=== PATIENT | female | born 1960 | race Caucasian/White ===

== ENCOUNTER → 2017-06-11 10:08 | Outpatient (CLI) | payer MEDICARE, MEDICAID, SELFPAY ==
[2017-06-11 11:49] LABS: Amphetamine Urine VISTA NEGATIVE (<1000 ng/mL); Barbiturate Urine VISTA NEGATIVE (< 200 ng/mL); Benzodiazepine Urine VISTA NEGATIVE (< 200 ng/mL); Cocaine Urine VISTA NEGATIVE (< 300 ng/mL); Ecstacy Urine VISTA NEGATIVE (< 500 ng/mL); Methadone Urine VISTA NEGATIVE (< 300 ng/mL); PCP Urine VISTA NEGATIVE (< 25 ng/mL); THC Urine VISTA NEGATIVE (< 50 ng/mL); Vista UDS pH Range 6
== END ==
PROVIDERS: Visit Provider Anesthesiology Pain Medicine
DX: F11.20 Opioid dependence, uncomplicated (principal)
CPT/HCPCS: 80307

== ENCOUNTER 2021-04-04 13:59 | Outpatient (CLI) | payer MEDICARE, MEDICAID, SELFPAY ==
--- NOTE | 2021-04-04 14:49 | NEURO ---
NCS and/or EMG Patient Report Ordering Doctor: Shravan Patterson DATE OF SERVICE: 04/04/21 Indication: Intermittent numbness traveling down the left arm for the last 6 months. Evaluate for cervical radiculopathy. Findings: Nerve conduction studies were performed in the left upper extremity. The left median motor study recording the abductor pollicis brevis showed a normal amplitude, normal distal latency and normal conduction velocity. The left ulnar motor study recording the abductor digiti minimi showed a normal amplitude, normal distal latency and normal conduction velocity. No conduction block or focal slowing was present across the elbow. The left median sensory response recording digit two showed a normal amplitude, latency and conduction velocity. The left ulnar sensory response recording digit five showed a normal amplitude, latency and conduction velocity. The left radial sensory response recording over the extensor snuff box showed a normal amplitude, latency and conduction velocity. As the sensory symptoms of a C6-7 radiculopathy are similar to those of median entrapment at the wrist, additional internal comparison studies were done to help exclude a possible median neuropathy at the wrist. Left median-ulnar lumbrical / interosseous motor latencies showed no significant difference. Needle EMG of the left upper extremity and cervical paraspinal muscles was performed. No denervation was seen in any muscle. All motor unit morphology, activation and recruitment patterns were normal. Impression: This is a normal study. There is no electrophysiologic evidence of cervical radiculopathy in the left upper extremity. In addition, there was no electrophysiologic evidence of median or ulnar entrapment neuropathy in the left upper extremity. Please note: the electrodiagnosis of radiculopathy is made on the basis of excluding peripheral nerve lesions on nerve conduction studies and the needle EMG demonstrating denervation and/or reinnervation in the distribution of one or more nerve roots (i.e., acute and/or chronic axonal loss). Thus, electrodiagnostic studies are insensitive in detecting radiculopathy in the absence of axonal loss (e.g., in the setting of compression resulting in intermittent ischemia or mechanical deformation; or demyelination without axonal loss). Thus, clinical correlation is required in the interpretation of this negative electrodiagnostic study for radiculopathy. Mikey Cote D.O. Multi Select Codes Neurology Neurology Interp Codes: 44960-70 Musc test done w/n test comp (interp) and 23259-12 Nrv cndj test 7-8 studies (interp)
== END 2021-04-04 23:59 | disposition home or self-care (01) ==
LOC: PSN 14:03
PROVIDERS: Referring Provider Orthopaedic Surgery; Visit Provider Orthopaedic Surgery
DX: R20.2 Paresthesia of skin (principal)
CPT/HCPCS: 95886; 95910

== ENCOUNTER → 2022-01-17 | Outpatient (CLI) | payer MEDICARE, MEDICAID, SELFPAY ==
--- NOTE | 2022-01-17 09:47 | MRI_ITS ---
STUDY: MRI RIGHT HAND REASON FOR EXAM: Female, 61 years old. PAIN -- RIGHT 5TH FINGER TECHNIQUE: Standardized fat and water weighted pulse sequences were obtained in all 3 orthogonal planes. COMPARISON: X-ray of the fifth digit dated December 26, 2021. FINDINGS: FIRST DIGIT: Normal visualized first metacarpus. The MCP joint is mildly narrowed. Normal interphalangeal joint. Normal proximal, and distal phalanges. Normal flexor and extensor tendons. There is no soft tissue abnormality. SECOND DIGIT: Normal visualized second metacarpus. The MCP joint is mildly narrowed. Normal proximal and distal interphalangeal joints. Normal proximal, middle and distal phalanges. Normal flexor and extensor tendons. There is no soft tissue abnormality. THIRD DIGIT: Normal visualized third metacarpus. The MCP joint is mildly narrowed. Normal proximal and distal interphalangeal joints. Normal proximal, middle and distal phalanges. Normal flexor and extensor tendons. There is no soft tissue abnormality. FOURTH DIGIT: Normal visualized fourth metacarpus. The MCP joint is mildly narrowed. Normal proximal and distal interphalangeal joints. Normal proximal, middle and distal phalanges. Normal flexor and extensor tendons. There is no soft tissue abnormality. FIFTH DIGIT: A benign 0.72 x 0.43 cm tingling cyst is present in the subcutaneous tissues in the volar aspect of the neck of the fifth proximal phalanx with mild subcutaneous edema surrounding the cyst. Normal visualized fifth metacarpus. The MCP joint is mildly narrowed. Normal proximal and distal interphalangeal joints. Normal proximal, middle and distal phalanges. Normal flexor and extensor tendons. Normal visualized thenar and hypothenar muscles. Normal lumbricalis and interosseous muscles. There are no solid, cystic or lipomatous masses. MRI/Upper Ext/No Jt/ wo IMPRESSION: 1. A benign 0.72 x 0.43 cm tingling cyst is present in the subcutaneous tissues in the volar aspect of the neck of the fifth proximal phalanx with mild subcutaneous edema surrounding the cyst. Electronically Signed: Tello Nur MD at 11:49 EST ,
== END | disposition home or self-care (01) ==
LOC: MRI 09:47
PROVIDERS: PCP Nurse Practitioner Family; Referring Provider Orthopaedic Surgery Sports Medicine; Visit Provider Orthopaedic Surgery Sports Medicine
DX: M67.40 Ganglion, unspecified site (principal)
CPT/HCPCS: 73218

== ENCOUNTER 2022-03-29 06:00 | Day surgery (SDC) | payer MEDICARE, MEDICAID, SELFPAY ==
[2022-03-29 06:29] VITALS: BP 144/81; PULSE 89; RESP 18; TEMP 36.6; O2SAT 98; BMI 20.7
[2022-03-29] MEDS: Lactated Ringers 1,000 ML 15 ML IV (06:45)
--- NOTE | 2022-03-29 07:06 | PCM.HP.STD ---
HPI - General HPI Narrative REGIS HERNANDEZ, is a 61 F who presents for left 5th digit volar ganglion cyst excision. no changes to h and p. marked. discussed after care. no concerns, ok to proceed. MR#: [id number] Acct: [id number] Name:REGIS GONZALES Rep #: [id number] : 1960 ? ? Provider: Dr. Jeffrey Mallory MD Age/Sex:? 61/F ? ? Location: [facility] [place] Status: Signed Intake Intake Visit Reasons:?Right hand Chief Complaint: right hand Allergies No Known Allergies Allergy (Verified 01/24/22 08:54) Medications aspirin 81 mg chewable tablet 81 mg PO DAILY@0800 02/18/14 [History Confirmed 01/24/22] buspirone 30 mg tablet 30 mg PO BID 12/26/21 [History Confirmed 01/24/22] hydroxyzine HCl 25 mg tablet 25 mg PO QHS 12/26/21 [History Confirmed 01/24/22] pantoprazole 20 mg tablet,delayed release 20 mg PO DAILY 12/26/21 [History Confirmed 01/24/22] trazodone 100 mg tablet 100 mg PO DAILY 12/26/21 [History Confirmed 01/24/22] venlafaxine 75 mg tablet 75 mg PO DAILY 12/26/21 [History Confirmed 01/24/22] PFSH Medical History?(Updated 01/24/22 @ 09:08 by Jeffrey Mallory MD) Ganglion of flexor tendon sheath of right little finger Ganglion, tendon sheath History of CVA (cerebrovascular accident) Surgical History? History of arthroscopy of right shoulder History of lumbar spinal fusion Hx of cervical spine surgery Hx of cholecystectomy Hx of hysterectomy Family History? Father Hypertension Heart disease CVA (cerebral vascular accident)Mother Myocardial infarction Social History? Smoking Status:? Current some day smoker alcohol intake:? never HPI Right hand Details: Parts of this documentation were recorded by a scribe, this documentation accurately reflects the service provided and the decisions made by me, Dr. Jeffrey Mallory MD 01/24/22 0852. REGIS HERNANDEZ is a 61 year old F here today for low up on MRI for lesion of the right small finger.? Still bothering the patient especially with grasping and wants it removed. Ortho Exam General General: Yes no acute distress Neurologic: Yes alert and Yes oriented x3 Psychologic: Yes reasonable and appropriate Right Wrist/Hand Skin/Wound: Yes CDI, Yes Swelling, No Ecchymosis, Yes nail intact and Yes capillary refill normal Right Wrist: Yes ROM-Extension 0-60, ROM-Flexion 0-80, ROM-Pronation 0-80 and ROM-Supination 0-90 Motor: EPL: 5, FDP-2: 5, 1st Dorsal Interosseous: 5 and APB: 5 Sensation: Radial: I, Ulnar: I and Median: I WRIST: On the volar side of the fifth digit at the proximal phalanx mid aspect more ulnarly there appears to be a 3 mm circular cystic type lesion it is painful to palpate.? Moderately firm.? It is mobile.? The range of motion of the MCP joint is about 0 to 80 degrees PIP joint 0 to 80 degrees and DIP joint 0 to 50 degrees. it trans illuminates Left Wrist/Hand Skin/Wound: Yes Swelling and No Ecchymosis Supplemental Info [facility] Imaging Services [address] [place] [address] Upper Ext/No Jt/ wo MR#:? [id number] Acct: [id number] Name:REGIS GONZALES Rep #: [id number] :?? 1960 F 61 ? From:? ? Tello Nur MD PCP: SHIELA Ogden ? Status: REG CLI Study: Upper Ext/No Jt/ wo ? Date of Exam: 01/17/22 Exam# [id number] ? Ordering Dr:? Jeffrey Mallory MD STUDY:? MRI RIGHT HAND REASON FOR EXAM: ? Female, 61 years old.? PAIN -- RIGHT 5TH FINGER TECHNIQUE: ? Standardized fat and water weighted pulse sequences were obtained in all 3 orthogonal planes. COMPARISON: ? X-ray of the fifth digit dated December 26, 2021. FINDINGS: FIRST DIGIT:? Normal visualized first metacarpus.? The MCP joint is mildly narrowed. Normal interphalangeal joint. Normal proximal, and distal phalanges. Normal flexor and extensor tendons. There is no soft tissue abnormality. SECOND DIGIT:? Normal visualized second metacarpus. The MCP joint is mildly narrowed.? Normal proximal and distal interphalangeal joints. Normal proximal, middle and distal phalanges. Normal flexor and extensor tendons. There is no soft tissue abnormality. THIRD DIGIT:? Normal visualized third metacarpus. The MCP joint is mildly narrowed. Normal proximal and distal interphalangeal joints. Normal proximal, middle and distal phalanges. Normal flexor and extensor tendons. There is no soft tissue abnormality. FOURTH DIGIT:? Normal visualized fourth metacarpus. The MCP joint is mildly narrowed. Normal proximal and distal interphalangeal joints. Normal proximal, middle and distal phalanges. Normal flexor and extensor tendons. There is no soft tissue abnormality. FIFTH DIGIT:? A benign 0.72 x 0.43 cm tingling cyst is present in the subcutaneous tissues in the volar aspect of the neck of the fifth proximal phalanx with mild subcutaneous edema surrounding the cyst.? Normal visualized fifth metacarpus. The MCP joint is mildly narrowed. Normal proximal and distal interphalangeal joints. Normal proximal, middle and distal phalanges. Normal flexor and extensor tendons. Normal visualized thenar and hypothenar muscles.? Normal lumbricalis and interosseous muscles.? There are no solid, cystic or lipomatous masses. MRI/Upper Ext/No Jt/ wo IMPRESSION: 1.? A benign 0.72 x 0.43 cm tingling cyst is present in the subcutaneous tissues in the volar aspect of the neck of the fifth proximal phalanx with mild subcutaneous edema surrounding the cyst. ? Electronically Signed: Tello Nur MD at 11:49 EST Reading Location ID and State: [facility] / [place] , Service support? , ? Reviewed the MRI report and images agree with radiologist assessment Coding Level of Care Code Off vis,est,level 3 Diagnoses Ganglion of flexor tendon sheath of right little finger? M67.441 Assessment and Plan Assessment and Plan (1) Ganglion of flexor tendon sheath of right little finger: ?Status:?Acute ?Plan: 61-year-old female appears to have a small cystic lesion benign in appearance right little finger on the volar side.? Can treat this nonoperatively rest ice activity modifications anti-inflammatories aspiration as well as surgical excision H at the onset of pros and cons risks and benefits.? She would prefer to have this surgically removed.? We discussed the pros and cons risks and benefits of this and she wished to go ahead some extent form for that as well as possible need for blood products. Pros and cons risks and benefits were discussed with the patient including but not limited to infection, pain, stiffness, bleeding, damage to surrounding structures, neurovascular injury, recurrence ~10%? or retear, failure or wear of hardware or fixation, instability, fracture, deep vein thrombosis and pulmonary embolism, anesthetic risks, patient dissatisfaction, need for further surgery and other risks.? Patient understood and wished to proceed with surgery, and signed the informed consent documentation. [facility] Medical History (Updated 03/22/22 @ 12:02 by Sravanthi Paulino) Anxiety Arthritis Cardiology follow-up encounter Complete edentulism, class III Depression DVT (deep venous thrombosis) Easy bruising Former smoker Ganglion of flexor tendon sheath of right little finger Ganglion, tendon sheath Gastric reflux History of CVA (cerebrovascular accident) History of echocardiogram History of pain when walking History of stress test History of ulceration Injury of back Injury of head and neck Migraine headache Restless legs Shortness of breath on exertion Syncope TIA (transient ischemic attack) Wears glasses Wears hearing aid Home Medications buspirone 30 mg tablet 30 mg PO BID 12/26/21 [History Last Taken 03/29/22 04:30] pantoprazole 20 mg tablet,delayed release 20 mg PO DAILY 12/26/21 [History Last Taken Unknown] trazodone 100 mg tablet 150 mg PO QHS 12/26/21 [History Last Taken Unknown] venlafaxine 75 mg tablet 75 mg PO DAILY 12/26/21 [History Last Taken Unknown] meloxicam 15 mg tablet 15 mg PO DAILY 03/22/22 [History Last Taken Unknown] pramipexole 0.5 mg tablet 0.5 mg PO QHS 03/22/22 [History Last Taken Unknown] Allergy/AdvReac Type Severity Reaction Status Date / Time No Known Allergies Allergy Verified 03/29/22 06:28 Family History Father Hypertension Heart disease CVA (cerebral vascular accident) Mother Myocardial infarction Surgical History (Updated 03/22/22 @ 12:02 by Sravanthi Paulino) History of arthroscopy of right shoulder History of exploratory laparotomy History of lumbar spinal fusion Hx of cervical spine surgery Hx of cholecystectomy Hx of hysterectomy Social History Smoking Status: Current some day smoker tobacco type: cigarettes alcohol intake: never Vital Signs Vital Signs Vital Signs: 03/29/22 06:29 03/29/22 06:29 Temperature 97.8 F Temperature Source Temporal Pulse Rate 89 Respiratory Rate 18 Respiratory Pattern Normal Blood Pressure 144/81 H Blood Pressure Mean 102 Blood Pressure Source Monitor Blood Pressure Position Sitting Blood Pressure Location Right Arm Pulse Ox 98 Oxygen Delivery Method Room Air Weight Weight: 116 lb 13.52 oz Body Mass Index (BMI) 20.7
--- NOTE | 2022-03-29 07:30 | GANG_PTH ---
PATIENT: REGIS HERNANDEZ LOC: [facility] [place] U#:[id number] AGE/SX: 61/F ROOM: RE03/29/[address]: Dr. Jeffrey Mallory MD : 1960 BED: DIS: 03/29/2022 SPEC #: [id number] RECD: 03/29/22 09:37 STATUS: MIS RESergio #: [id number] RICHI: 03/29/22 07:[address]: Jeffrey Mallory DEPT: SURGICAL PATHOLOGY RECD BY: Suzanne Singh ENTERED: 03/29/22 10:06 SP TYPE: GANGLION OTHR DR: Karen Álvarez, CURBER-C Tissues: GANGLION CYST Procedures: Surgery Specimen Level III HEADER OPERATION: Excision cyst little finger PRE-OP DIAGNOSIS: Ganglion of flexor tendon sheath of right little finger TISSUE SUBMITTED: Right little finger cyst MICROSCOPIC DIAGNOSIS Right little finger cyst, excision: Epidermal inclusion cyst. EMETERIO:kailee 03/30/2022 MICROSCOPIC DESCRIPTION Slides are reviewed. GROSS DESCRIPTION Received in fixative is one container labeled with the patient's name and designated right little finger cyst. The specimen consists of a piece of johnston-white nodule measuring 0.7 x 0.5 x 0.4 cm. The specimen is bisected and submitted entirely in one cassette. / SJ:rg 03/29/2022 TC:5 CPT: 53555
[2022-03-29] MEDS: Cefazolin 2 GM in 0.9% Normal Saline 100 ML IV (07:45)
--- NOTE | 2022-03-29 08:06 | PCM.OPRPT ---
Problems Associated Problem List Diagnoses (1) Ganglion of flexor tendon sheath of right little finger: Report of Operation Date of Procedure: 03/29/22 Pre-Operative Diagnosis: right 5th finger volar flexor tendon ganglion cyst Post-Operative Diagnosis: same Surgery/Procedure Performed:: right 5th finger volar flexor tendon ganglion cyst excision Description of Surgical Findings:: [id number] small benign appearing cyst removed in one section Surgeon: Jeffrey Mallory Type of Anesthesia: General and Local Anesthesiologist: Jony Davis Estimated Blood Loss (mL): 5 Description of Procedure: Patient brought to the operating room theater. Placed supine on the operating room table. General anesthesia induced. Hand table to the patient's right side. 2 g IV Ancef administered prior to the start of the procedure. 18 inch tourniquet applied right upper extremity appropriately padded. Upper extremity prepped and draped in the usual sterile fashion chlorhexidine-based prep solution allowing over 3 minutes drying time prior to draping. Preoperative timeout performed to confirm the site patient and surgery. Began by inflating the tourniquet to 250 mmHg. Used 1 cc of 0.25% bupivacaine with a 25-gauge needle to perform a digital block on the volar ulnar side of the fifth digit. Use a longitudinal incision centered over the cyst site. Ensured to protect the digital nerve. Cyst was excised in 1 section. Removed easily, no damage to tendon sheath. 5mm x 5mm white-colored tissue. Sent for pathology. Case terminated. Tourniquet let down. Hemostasis achieved. Wound thoroughly irrigated. Skin closed with horizontal mattress 4-0 nylon suture. Skin cleaned with wet and dry dressing followed application of Telfa dressing and Maddie wrap loosely wrapped around the finger. Patient woken up transferred off the operating room table and taken to postanesthetic care unit in stable condition. All sponge needle instrument counts were correct no complications. Plan for the patient gentle range of motion follow-up in the office in 2 days time keep the wound clean and dry. Complications none Admit VTE Documentation VTE Present on Admission: No VTE Mechan Device Prophylaxis: SCD's Reason prophylaxis not ordered:: Treatment Not Indicated Procedures Musculoskeletal [id number]-29xxx: [id number] Remove tendon sheath lesion
--- NOTE | 2022-03-29 08:10 | DCINST_ITS ---
Discharge Instructions Diet Discharge Diet: No restrictions Activity Ice area for (Minutes): 10 Lifting Restrictions: no heavy lifting, ROM as tolerated finger. Keep extremity elevated above heart level: Operative Extremity Dressing / Incision Call your doctor if your incision/area has: Continuous Slow Oozing, Sudden Increased Bleeding, Increased Pain/ Swelling, Increased Redness, Foul Smelling Discharge and Swelling at the incision site Change Dressing in: leave in place till F/U Follow Up Care Please Follow Up With: Jeffrey Mallory MD When: 2 days Test Results: Test results from this visit will be discussed in further detail at your follow- up appointment, if applicable. Discharge Plan Admission Attending Provider: Jeffrey Mallory Primary Care Provider: Karen Álvarez NP Discharge Orders/Prescriptions Prescriptions: No Action buspirone 30 mg tablet 30 mg PO BID pantoprazole 20 mg tablet,delayed release (DR/EC) 20 mg PO DAILY venlafaxine 75 mg tablet 75 mg PO DAILY trazodone 100 mg tablet 150 mg PO QHS meloxicam [Mobic] 15 mg Tablet 15 mg PO DAILY pramipexole 0.5 mg Tablet 0.5 mg PO QHS Referrals / Follow Up: Karen Álvarez NP, [employer] [Primary Care Provider] - Disposition Disposition (needs filled in before D/C Order can be placed): Home, Self Care
[2022-03-29 08:14] VITALS: BP 144/81; BP 155/84; PULSE 98; RESP 18; TEMP 36.2; O2SAT 95
[2022-03-29 08:15] VITALS: BP 144/81; BP 155/84; PULSE 94; RESP 18; O2SAT 98
--- NOTE | 2022-03-29 08:25 | NURSING ---
RT HAND: ALL FINGERS PINK, CAP REFILL <3 SEC, ABLE TO MOVE ALL FINGERS, HAND ELEVATED.
[2022-03-29 08:30] VITALS: BP 144/81; BP 148/82; PULSE 93; RESP 18; O2SAT 95
[2022-03-29 08:45] VITALS: BP 125/97; BP 144/81; PULSE 100; RESP 18; TEMP 36.2; O2SAT 98
[2022-03-29] MEDS: HYDROcodone Bitartrate/Apap 5/325 Tablet PO (09:02)
[2022-03-29 09:13] VITALS: BP 144/81
--- NOTE | 2022-03-29 09:15 | SUR.PHASEII ---
PATIENT TO GO HOME VIA PUBLIC TRANSPORTATION WITH HER FRIEND ACCOMPANYING HER.
== END 2022-03-29 09:16 | disposition home or self-care (01) ==
LOC: SDC 06:02 → AC 06:04
PROVIDERS: PCP Nurse Practitioner Family; Referring Provider Orthopaedic Surgery Sports Medicine; Visit Provider Orthopaedic Surgery Sports Medicine
PROC: (CPT 26160; principal; 2022-03-29 07:15)
DX: M67.441 Ganglion, right hand (principal); M79.644 Pain in right finger(s); F17.200 Nicotine dependence, unspecified, uncomplicated; Z79.82 Long term (current) use of aspirin; Z79.1 Long term (current) use of non-steroidal anti-inflammatories (NSAID); Z79.899 Other long term (current) drug therapy
CPT/HCPCS: 26160; 88304; J7120

== ENCOUNTER → 2022-04-10 | Outpatient (CLI) | payer MEDICARE, MEDICAID, SELFPAY | END | disposition home or self-care (01) | LOC: PSN 08:17 | PROVIDERS: PCP Nurse Practitioner Family; Referring Provider Physician Assistant; Visit Provider Physician Assistant | DX: Z00.00 Encounter for general adult medical examination without abnormal findings (principal) ==

== ENCOUNTER 2022-04-17 07:21 | Day surgery (SDC) | payer MEDICARE, MEDICAID, SELFPAY ==
--- NOTE | 2022-04-10 08:23 | EKG12_ITS ---
Test Reason : PRE-OP Blood Pressure : / mmHG Vent. Rate : 068 BPM Atrial Rate : 068 BPM P-R Int : 098 ms QRS Dur : 070 ms QT Int : 414 ms P-R-T Axes : 074 074 071 degrees QTc Int : 440 ms Sinus rhythm with short MS Otherwise normal ECG Confirmed by MAGGY EMMANUEL, LISANDRO ([id number]), editor news MASOOD [place] ([id number]) on 04/11/2022 9:48:13 AM Referred By: Carlo Plata Confirmed By:LISANDRO WINTER MD
[2022-04-10 08:34] LABS: Hemoglobin 10.7 g/dL (12.0-15.0); Mean Corp Hgb Conc 29.7 g/dL (32-36); Mean Corpuscular Hgb 25.7 pg (27.0-32.0); Mean Corpuscular Volume 86.5 fL (81-99); Platelet Count 217 K/mm3 (150-450); RBC Distribution Width CV 14.7 % (11.6-14.6); RBC Distribution Width SD 47.4 fl (35.1-43.9); Red Blood Count 4.16 M/mm3 (4.2-5.4); White Blood Count 4.2 K/mm3 (4.4-11.0)
[2022-04-10 08:57] LABS: Anion Gap 6 (5-15); BUN 13 mg/dL (7-18); BUN/Creat Ratio 18.4 RATIO (10-20); Calcium,Total 8.5 mg/dL (8.5-10.1); Chloride 111 mmol/L (98-107); Creatinine, Serum 0.71 mg/dL (0.55-1.02); EST Glomerular Filtration Rate 89 mL/min (>60); Est Glom Filt Rate - Afr Amer 107 mL/min (>60); Glucose 97 mg/dL (74-106); Potassium 3.7 mmol/L (3.5-5.1); Sodium Level 145 mmol/L (136-145)
[2022-04-10 11:13] LABS: Hemoglobin A1c 5.9 % (3.8-5.6)
[2022-04-17] MEDS: Lactated Ringers 1,000 ML 15 ML IV ×2 (07:35→11:27)
[2022-04-17 07:53] VITALS: BP 140/92; PULSE 76; RESP 16; TEMP 36.8; O2SAT 100; BMI 21.2
[2022-04-17] MEDS: Cefazolin 2 GM in 0.9% Normal Saline 100 ML IV (09:54)
[2022-04-17] MEDS: Bupiv/Epi 0.25% 30 ML Vial (10:26)
[2022-04-17] MEDS: Epinephrine (1 mg/ml) 1 MG/ML VIAL (10:34)
[2022-04-17 11:16] VITALS: BP 140/92; BP 187/101; PULSE 93; RESP 18; TEMP 36.2; O2SAT 96
--- NOTE | 2022-04-17 11:28 | OP.PCM_ITS ---
Report of Operation Date of Procedure: 04/17/22 Pre-Operative Diagnosis: SAIS, AC arthrosis, possible RCT left shoulder Post-Operative Diagnosis: same but no RCT Surgery/Procedure Performed:: ASD with Faizan procedure left shoulder Description of Surgical Findings:: Report of Operation Date of Procedure: 04/17/2022 Preoperative Diagnosis: Left shoulder, SAIS, AC joint arthrosis and possible RCT Postoperative Diagnosis: Left Shoulder, same with , 10% undersurface RCT Operation: Diagnostic and operative arthroscopy of the left shoulder with a rthroscopic Surgeon: Dr Carlo Plata DO Patient Appointment Coordinator: MICHELLE Diaz Anesthesia: General Anesthesiologist: Jony Davis M.D. Description of Procedure: With appropriate informed consent, the patient was taken to the operative suite. After induction of general and regional anesthesia and administration of preoperative antibiotics, the patient was placed in a beach-chair position with all bony prominences well padded. SCD's were on the legs. The left arm and shoulder were prepared and draped sterilely. Thereafter, the standard arthroscopy portals were established. The glenohumeral joint was in good condition without evidence of damage or arthrosis. An anterior portal was established. The biceps tendon was in excellent condition. There was no labral instability. The rotator cuff was inspected from the GH surface and there was noted to be a less than 10% tear of the supraspinatus tendon. The torn fibers were debrided with a shaver. The arthroscopy instruments were then removed from the GH joint and placed in the subacromial space. A lateral portal was established. There was severe hypertrophic subacromial bursitis. A complete subacromial bursectomy was carried out. This revealed a large anterior inferior subacromial spur and significant AC joint arthrosis. A bur was utilized to perform an anterior inferior acromionectomy to flatten the undersurface of the acromion and decompress the subacromial space. The bur was then utilized to resect the distal 9mm of the clavicle in the manner of Faizan. Attention was now brought to the rotator cuff. The rotator cuff was evaluated from the bursal space and found to be intact. Arthroscopy instruments and fluids were removed. The portals were closed with interrupted sutures of 4-0 nylon followed by application of a sterile well- padded dressing and UltraSling. My wardrobe assistant, Mr Ontiveros, provided a vital role in the performance of this procedure beginning with positioning of the patient, maneuvering the arm, holding the arthroscope during various portions of the diagnostic and operative arthroscopy. Then, under my direct supervision, he closed the wounds and applied the sterile post-operative dressing. The patient was extubated and transferred to the PACU in stable and satisfactory condition. Carlo Plata DO Surgeon: Carlo Plata medical claims examiner: Matt Ochoa Type of Anesthesia: General/Regional Anesthesiologist: Jony Davis Estimated Blood Loss (mL): 10 cc Admit VTE Documentation VTE Present on Admission: No VTE Mechan Device Prophylaxis: SCD's and Thigh High ROGER Hose VTE Pharm Prophylaxis ordered?: No Reason prophylaxis not ordered:: Treatment Not Indicated
[2022-04-17 11:30] VITALS: BP 119/70; BP 140/92; PULSE 84; RESP 16; O2SAT 94
[2022-04-17 11:45] VITALS: BP 117/66; BP 140/92; PULSE 88; RESP 16; TEMP 36.5; O2SAT 98
[2022-04-17 12:10] VITALS: BP 140/92
--- NOTE | 2022-04-17 12:20 | SUR.PHASEII ---
PT RECEIVED D/C INSTRUCTIONS PROVIDED BY OFFICE, THIS NURSE PROVIDED THEM TO HER PRIOR TO D/C, PT VERBALIZES UNDERSTANDING OF DISCHARGE INSTRUCTIONS.
== END 2022-04-17 12:24 | disposition home or self-care (01) ==
LOC: SDC 07:23 → AC 07:24
PROVIDERS: Physician Assistant; PCP Nurse Practitioner Family; Referring Provider Orthopaedic Surgery; Visit Provider Orthopaedic Surgery
PROC: (CPT 29827; principal; 2022-04-17 09:20)
DX: S46.012A Strain of muscle(s) and tendon(s) of the rotator cuff of left shoulder, initial encounter (principal); X58.XXXA Exposure to other specified factors, initial encounter; M75.42 Impingement syndrome of left shoulder; M75.52 Bursitis of left shoulder; M19.012 Primary osteoarthritis, left shoulder; R03.0 Elevated blood-pressure reading, without diagnosis of hypertension; Z79.1 Long term (current) use of non-steroidal anti-inflammatories (NSAID); Z79.899 Other long term (current) drug therapy; Z86.73 Personal history of transient ischemic attack (TIA), and cerebral infarction without residual deficits
CPT/HCPCS: 29824; 29826; 01630; 64415; 36415; 80048; 83036; 85027; 93005; J7120; J2405

== ENCOUNTER 2022-05-31 11:38 | Outpatient (CLI) | payer MEDICARE, MEDICAID, SELFPAY ==
[2022-05-31 12:14] LABS: Hematocrit 36.5 % (37-47); Hemoglobin 11.2 g/dL (12.0-15.0); Mean Corp Hgb Conc 30.7 g/dL (32-36); Mean Corpuscular Hgb 25.5 pg (27.0-32.0); Mean Platelet Vol. 10.3 fl (6.2-12.0); Platelet Count 210 K/mm3 (150-450); RBC Distribution Width CV 14.9 % (11.6-14.6); RBC Distribution Width SD 44.7 fl (35.1-43.9); White Blood Count 3.7 K/mm3 (4.4-11.0)
[2022-05-31 13:45] LABS: ALB/GLOB Ratio 0.9 RATIO (0.9-2.4); AST(SGOT) 44 U/L (15-37); Alanine Aminotransfer ALT/SGPT 52 U/L (13-56); Albumin, Serum 3.1 g/dL (3.2-5.0); Alkaline Phosphatase 129 U/L (45-117); Anion Gap 3 (5-15); BUN 13 mg/dL (7-18); BUN/Creat Ratio 19.3 RATIO (10-20); Calcium,Total 8.5 mg/dL (8.5-10.1); Chloride 108 mmol/L (98-107); Cholesterol 150 mg/dL (200); Creatinine, Serum 0.67 mg/dL (0.55-1.02); EST Glomerular Filtration Rate 94 mL/min (>60); Est Glom Filt Rate - Afr Amer 114 mL/min (>60); Globulin 3.4 g/dL (2.2-4.2); Glucose 103 mg/dL (74-106); High Density Lipoprotein 47 mg/dL; Potassium 3.7 mmol/L (3.5-5.1); Protein, Total 6.5 g/dL (6.4-8.2); Sodium Level 137 mmol/L (136-145); Thyroid Stim Hormone (TSH) 1.57 uIU/mL (0.358-3.74); Triglycerides 131 mg/dL; Very Low Density Lipoprotein 26 mg/dL (5-40)
[2022-06-02 16:09] LABS: Vitamin D 1,25-Dihydroxy 37.7 pg/mL (24.8-81.5)
== END 2022-05-31 23:59 | disposition home or self-care (01) ==
LOC: LAB 11:40
PROVIDERS: PCP Nurse Practitioner Family; Referring Provider Nurse Practitioner Family; Visit Provider Nurse Practitioner Family
DX: D50.9 Iron deficiency anemia, unspecified (principal); G25.81 Restless legs syndrome; Z13.220 Encounter for screening for lipoid disorders; E55.9 Vitamin D deficiency, unspecified; Z80.8 Family history of malignant neoplasm of other organs or systems
CPT/HCPCS: 36415; 80053; 80061; 82652; 84439; 84443; 85027

== ENCOUNTER → 2022-06-05 | Outpatient (CLI) | payer MEDICARE, MEDICAID, SELFPAY ==
--- NOTE | 2022-06-05 09:47 | RAD_ITS ---
INDICATION: URI EXAMINATION/TECHNIQUE: X-RAY - XR Chest 2 Views COMPARISON: 02/18/2049 FINDINGS: LINES/DEVICES: None. LUNGS: No consolidation, edema or effusion. No pneumothorax. MEDIASTINUM AND CARDIOVASCULAR STRUCTURES: Cardiac silhouette not enlarged. Central airways and mediastinal contour are unremarkable. BONES AND SOFT TISSUES: Mild levoscoliosis of the thoracic spine and mild dextroscoliosis midthoracic spine progressive. Spinal stimulator has been removed. Hardware is seen at the C7-T1 and C6-7 levels consistent with prior spinal surgery. RAD/Chest PA and Lateral IMPRESSION: No acute cardiopulmonary disease. See additional findings above. Electronically Signed: Benjamin Loyd MD, KHADAR at 18:13 EDT ,
== END | disposition home or self-care (01) ==
LOC: RAD 09:46
PROVIDERS: PCP Nurse Practitioner Family; Referring Provider Nurse Practitioner Family; Visit Provider Nurse Practitioner Family
DX: J06.9 Acute upper respiratory infection, unspecified (principal)
CPT/HCPCS: 71046

== ENCOUNTER → 2023-01-18 | Outpatient (CLI) | payer MEDICARE, MEDICAID, SELFPAY ==
--- NOTE | 2023-01-18 06:35 | MRI_ITS ---
STUDY: MRI LEFT SHOULDER REASON FOR EXAM: Female, 62 years old. Pain. Shoulder and arm going numb. Limited range of motion. Symptoms for 2 months. Fell. TECHNIQUE: Standardized fat and water weighted pulse sequences were obtained in all 3 orthogonal planes. COMPARISON: Left shoulder radiographs dated 12/08/2022. FINDINGS: There is supraspinatus, infraspinatus, and subscapularis tendinosis without a full-thickness tear. Normal teres minor tendon. Normal supraspinatus muscle. Normal infraspinatus muscle. Normal subscapularis muscle. Normal teres minor muscle. Normal glenohumeral articulation. There is mild enthesopathic subcortical cyst formation in the greater tuberosity of the humeral head. Normal biceps labral complex. Normal intracapsular long biceps tendon. Normal labrum. Normal capsulo-ligamentous complex. Normal rotator interval. There is mild acromioclavicular arthrosis. There is a Type II morphology (curved), with a neutral orientation. There is no subacromial-subdeltoid bursal fluid. Normal visualized coracohumeral and coracoacromial ligaments. Normal quadrilateral space. Normal axillary space. Normal deltoid muscle. Normal trapezius muscle. MRI/Upper Ext Joint Only(Routine) IMPRESSION: Supraspinatus, infraspinatus, and subscapularis tendinosis without a full-thickness rotator cuff tear. Mild acromioclavicular arthrosis. Electronically Signed: Deng Emmanuel MD at 8:27 EST ,
== END | disposition home or self-care (01) ==
PROVIDERS: PCP Nurse Practitioner Family; Referring Provider Nurse Practitioner Family; Visit Provider Orthopaedic Surgery Sports Medicine
DX: M25.512 Pain in left shoulder (principal)
CPT/HCPCS: 73221

== ENCOUNTER → 2023-02-09 | Outpatient (CLI) | payer MEDICARE, MEDICAID, SELFPAY ==
--- NOTE | 2023-02-09 12:41 | MRI_ITS ---
STUDY: MRI LUMBAR SPINE WITHOUT CONTRAST REASON FOR EXAM: Female, 62 years old. pain after fall, L leg pins and needles TECHNIQUE: Standardized fat and water weighted pulse sequences were obtained in the sagittal and axial planes. Pre and postcontrast images obtained. Contrast: 11 mL Clariscan COMPARISON: Plain film examination of 12/20/2022. FINDINGS: Vertebral bodies and alignment. 1. Vertebral body height is maintained, postoperative changes with pedicle screw posterior fixation from L4 to S1. 2. There is a mild retrolisthesis of L2 on L3. Significant discogenic endplate changes are present at L1-2. Modic type II endplate changes are present at L1-2. 3. No evidence of fractures or hardware failure. 4. There is mild marrow edema and mild contrast enhancement at the L2 vertebral body which appears to be an extension of the endplate changes involving the inferior endplate of L2.. 5. Paraspinous soft tissue planes have normal appearance. Normal appearance of the muscular fascial planes of the erector spinae. 6. Normal appearance of the sacrum and sacroiliac joints. Intervertebral disks levels. T12-L1: Disc desiccation, minimal broad-based disc bulge, no disc herniation canal or foraminal stenosis. L1-2: Loss of disc height, degenerative endplate changes are present. Broad-based posterior disc bulge and osteophyte complex without evidence of canal or foraminal stenosis. Moderate facet arthropathy noted greater on LEFT than RIGHT. L2-3: Significant metal artifact from fixation at L3. There is obscuration of the lateral recesses and neural foramina. Discogenic endplate changes are present. There is broad-based posterior disc bulge and osteophyte complex and mild retrolisthesis of L2 on L3. No central canal stenosis however significant compromise of the RIGHT lateral recess and RIGHT neural foraminal. L3-4: Disc desiccation, minimal retrolisthesis noted. No disc herniation or canal stenosis. No evidence of nerve root impingement. Neural foramina appear widely patent. L4-5: Disc desiccation, no disc herniation canal or foraminal stenosis. L5-S1: Intervertebral disc spacers present, pedicle screw posterior fixation noted. No evidence of disc herniation canal or foraminal stenosis. Spinal cord: Normal appearance of the spinal cord and conus. Conus is located at L1. Cauda equina has normal appearance. No evidence of cord compression or edema. No intramedullary signal abnormality noted. No areas of abnormal intradural or intramedullary contrast abnormality. MRI/Spine Lumbar W/WO Contrast IMPRESSION: 1. Screw posterior fixation from L3 to S1. No evidence of hardware failure or acute fracture. 2. Discogenic endplate changes are present at L1-2 and at L2-3. Mild diffuse enhancement of the L2 vertebral body which appears to be an extension of the discogenic endplate changes involving the inferior endplate. 3. There is retrolisthesis of L2 on L3, no central canal stenosis however significant compromise of neural foramina and lateral recesses greater on the RIGHT than LEFT with potential nerve root impingement. 4. Chronic disc changes at T12-L1 and at L1-2 without evidence of disc herniation canal stenosis nerve 5. No evidence of epidural fluid collections or abnormal enhancement. No evidence of epidural, intradural or intramedullary enhancement. 6. Normal appearance of visualized spinal cord and conus. Electronically Signed: Jose M Olea MD at 1:06 EST ,
--- OUTSIDE RECORDS SUMMARY | 2023-02-09 13:02 | XMS RPT_ITS | CCD ---
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 Name Role Phone KAREN MARCH Primary Care Physicia n Karen Cerna APRN.CNP Primary Care Provider Michelle Diaz Unavailable NUBIA TAFOYA Attending Unavailable KAREN CERNA Primary Care Unavailable NUBIA TAFOYA Attending Unavailable NUBIA TAFOYA Referring Unavailable KAREN CERNA Primary Care Unavailable NUBIA TAFOYA Admitting Unavailable KAREN CERNA CNP Consulting Unavailable JUANMICHELLE MARTINEZ Primary Care Unavailable MICHELLE DIAZ Attending Unavailable MICHELLE DIAZ Admitting Unavailable PROVIDER, UNKNOWN Consulting Unavailable PROVIDER, UNKNOWN Consulting Unavailable KAREN CERNA CNP Consulting Unavailable JANALYSON VENEGAS PAC Primary Care Unavailable JANRUBI, ALYSON PAC Attending Unavailable SHAKEEL, ALYSON PAC Admitting Unavailable PROVIDER, UNKNOWN Consulting Unavailable PROVIDER, UNKNOWN Consulting Unavailable JANRUBI, ALYSON PAC Admitting Unavailable JANRUBI, ALYSON PAC Attending Unavailable JANRUBI, ALYSON PAC Primary Care Unavailable KAREN CERNA CNP Consulting Unavailable PROVIDER, UNKNOWN Consulting Unavailable PROVIDER, UNKNOWN Consulting Unavailable KAREN CERNA CNP Consulting Unavailable JANAS, ALYSON PAC Primary Care Unavailable JANAS, ALYSON PAC Attending Unavailable JANAS, ALYSON PAC Admitting Unavailable PROVIDER, UNKNOWN Consulting Unavailable PROVIDER, UNKNOWN Consulting Unavailable KAREN CERNA CNP Consulting Unavailable JANAS, ALYSON PAC Primary Care Unavailable JANRUBI, ALYSON PAC Attending Unavailable JANRUBI, ALYSON PAC Admitting Unavailable PROVIDER, UNKNOWN Consulting Unavailable PROVIDER, UNKNOWN Consulting Unavailable KAREN CERNA CNP Consulting Unavailable KAREN CERNA CNP Primary Care Unavailable KAREN CERNA CNP Attending Unavailable KAREN CERNA CNP Admitting Unavailable PROVIDER, UNKNOWN Consulting Unavailable PROVIDER, UNKNOWN Consulting Unavailable NEHEMIAH KAREN WELLINGTON Consulting Unavailable SAGAR CERNAELLE WELLINGTON Primary Care Unavailable KAREN CERNA CNP Attending Unavailable KAREN CERNA CNP Admitting Unavailable PROVIDER, UNKNOWN Consulting Unavailable PROVIDER, UNKNOWN Consulting Unavailable JOHNDREW PEREIRA Admitting Unavailable JOHNDREW PEREIRA Attending Unavailable JOHNDREW PEREIRA Primary Care Unavailable KAREN CERNA CNP Consulting Unavailable KAREN CERNA CNP Referring Unavailable PROVIDER, UNKNOWN Consulting Unavailable PROVIDER, UNKNOWN Consulting Unavailable KAREN CERNA CNP Referring Unavailable KAREN CERNA CNP Consulting Unavailable JOHNDREW PEREIRA Primary Care Unavailable JOHNDREW PEREIRA Attending Unavailable DREW LOPEZ Admitting Unavailable PROVIDER, UNKNOWN Consulting Unavailable PROVIDER, UNKNOWN Consulting Unavailable DAVID KENYON Attending Unavailable Allergies Allergy Classification Reported Allergen(s) Allergy Type Date of Onset Reaction(s) Facility (4 sources) Codeine; Translations: [codeine] Drug Allergy 06-15-2022 Stomach ache (finding) [facility] Medications Current Medications Medication Drug Class(es) Dates Sig (Normalized) Sig (Original) acetaminophen 325 mg / HYDROcodone bitartrate 5 mg oral tablet (1 source) Opioid Agonist Start: 09-06-2021 End: 09-13-2021 take 1 tablet by mouth every six hours as needed for pain [place] 325- 5 mg oral tablet Dose = 1 tab(s), Oral, q6h, PRN for pain, X 7 day(s), # 28 tab(s), 0 Refill(s), Pharmacy: [id number], Cervical spondylosis, 160, cm, 09/06/21 6:20:00 EDT, Height, 54 Start Date: 09/06/21 Stop Date: 09/13/21 Status: Ordered busPIRone hydrochloride 30 mg oral tablet (3 sources) Start: 08-17-2021 busPIRone 30 mg oral tablet Dose : 30 mg = 1 tab(s), Oral, BID, 0 Refill(s) Start Date: 08/17/21 Status: Ordered Completed/Discontinued Medications Medication Drug Class(es) Dates Sig (Normalized) Sig (Original) COMPOUNDED PRESCRIPTION (1 source) COMPOUNDED PRESC RIPTION embrol- injection in knees 0 Active Problems Active Problems Problem Classification Problem Date Documented Da te Episodic/Chronic Abdominal hernia (2 sources) Hiatal hernia 05-23-2013 Episodic Abdominal pain (3 sources) Epigastric pain; Translations: [Epigastric pain] Onset: 06-13-2022 Episodic Coronary atherosclerosis and other heart disease (2 sources) Angina pectoris 05-23-2013 Chronic Deficiency and other anemia (1 source) Iron deficiency anemia, unspecified; Translations: [Iron deficiency anemia, unspecified] Onset: 10-31-2022 Episodic Disorders of lipid metabolism (2 sources) Hyperlipidemia 03-30-2014 Chronic Gastroduodenal ulcer (except hemorrhage) (2 sources) Peptic ulcer 05-23-2013 Chronic Headache; including migraine (3 sources) Migraine; Translations: [Migraine, unspecified, not intractable, without status migrainosus] Onset: 09-06-2021 03-30-2014 Chronic Miscellaneous mental health disorders (1 source) Psychalgia; Translations: [Pain disorder with related psychological factors] Onset: 06-21-2010 06-21-2010 Chronic Mood disorders (1 source) Depressive disorder; Translations: [Depression, unspecified] Onset: 09-06-2021 Chronic Nutritional deficiencies (1 source) Vitamin D deficiency, unspecified; Translations: [Vitamin D deficiency, unspecified] Onset: 10-31-2022 Chronic Osteoarthritis (1 source) Primary osteoarthritis, left shoulder; Translations: [Primary osteoarthritis, left shoulder] Onset: 08-03-2022 Chronic Other connective tissue disease (2 sources) Fibromyositis 03-30-2014 Episodic Other connective tissue disease (1 source) Fibromyalgia; Translations: [Fibromyalgia] Onset: 09-06-2021 Episodic Other hereditary and degenerative nervous system conditions (1 source) Restless legs syndrome; Translations: [Restless legs syndrome] Onset: 10-31-2022 Chronic Other screening for suspected conditions (not mental disorders or infectious disease) (1 source) Encounter for screening for lipoid disorders; Translations: [Encounter for screening for lipoid disorders] Onset: 10-31-2022 Episodic Mary-; endo-; and myocarditis; cardiomyopathy (except that caused by tuberculosis or sexually transmitted disease) (2 sources) Heart valve disorder 03-30-2014 Chronic Residual codes; unclassified (1 source) Family history of malignant neoplasm of other organs or systems; Translations: [Family history of malignant neoplasm of other organs or systems] Onset: 10-31-2022 Episodic Rheumatoid arthritis and related disease (3 sources) Rheumatoid arthritis; Translations: [Rheumatoid arthritis, unspecified] Onset: 09-06-2021 05-23-2013 Chronic Substance-related disorders (1 source) Continuous opioid dependence; Translations: [Opioid dependence, uncomplicated] Onset: 12-07-2011 12-07-2011 Chronic Transient cerebral ischemia (3 sources) Transient cerebral ischemia; Translations: [Transient cerebral ischemic attack, unspecified] Onset: 09-06-2021 05-23-2013 Chronic Past or Other Problems Problem Classification Problem Date Documented Da te Episodic/Chronic Esophageal disorders (1 source) Esophagitis; Translations: [Esophagitis, unspecified] Onset: 11-27-2011 11-27-2011 Episodic Gastritis and duodenitis (1 source) Acute gastritis; Translations: [Acute gastritis without bleeding] Onset: 11-27-2011 11-27-2011 Episodic Other connective tissue disease (1 source) History of lumbar fusion; Translations: [Arthrodesis status] Onset: 12-31-2014 12-31-2014 Episodic Other connective tissue disease (1 source) Impingement syndrome of left shoulder; Translations: [Impingement syndrome of left shoulder] Onset: 08-03-2022 Episodic Other lower respiratory disease (2 sources) Dyspnea Onset: 08-02-2012 03-30-2014 Episodic Screening and history of mental health and substance abuse codes (1 source) Personal history of nicotine dependence; Translations: [Personal history of nicotine dependence] Onset: 06-01-2022 Episodic Spondylosis; intervertebral disc disorders; other back problems (3 sources) Backache; Translations: [Lumbago with sciatica] Onset: 12-31-2014 05-23-2013 Episodic Results Test Name Value Interpretation Reference Range Facil ity Vital Signs Date Time Vital Sign Value Performing Clinician Facility 06-13-2022 14:290400 Body height 157.5 cm Nubia Tafoya MD Work Phone: [facility] 06-13-2022 14:29040 Body temperature 97.59 [degF] Nubia Tafoya MD Work Phone: [facility] 06-13-2022 14:290400 Body weight 57.34 kg Nubia Tafoya MD Work Phone: [facility] 06-13-2022 14:29-0400 Diastolic blood pressure 64 mm[Hg] Nubia Tafoya MD Work Phone: [facility] 06-13-2022 14:29-0400 Heart rate 106 /min Nubia Tafoya MD Work Phone: [facility] 06-13-2022 14:29-0400 SaO2% (BldA) [Mass fraction] 95 % Nubia Tafoya MD Work Phone: [facility] 06-13-2022 14:29-0400 Systolic blood pressure 110 mm[Hg] Nubia Tafoya MD Work Phone: [facility] 09-07-2021 07:31-0400 Body temperature 97.88 [degF] NATHANIEL LEA DO [facility] 09-07-2021 07:31-0400 Diastolic blood pressure 72 mm[Hg] NATHANIEL LEA DO [facility] 09-07-2021 07:31-0400 Heart rate 84 /min NATHANIEL LEA DO [facility] 09-07-2021 07:31-0400 Reason For Taking VItal Signs NATHANIEL LEA DO [facility] 09-07-2021 07:31-0400 Respiratory rate 18 /min NATHANIEL LEA DO [facility] 09-07-2021 07:31-0400 Systolic blood pressure 108 mm[Hg] NATHANIEL LEA DO [facility] 09-07-2021 04:00-0400 Body temperature 98.24 [degF] NATHANIEL LEA DO [facility] 09-07-2021 04:00-0400 Diastolic blood pressure 68 mm[Hg] NATHANIEL LEA DO [facility] 09-07-2021 04:00-0400 Heart rate 87 /min NATHANIEL LEA DO [facility] 09-07-2021 04:00-0400 Mean blood pressure 79 mm[Hg] NATHANIEL LEA DO [facility] 09-07-2021 04:00-0400 Systolic blood pressure 102 mm[Hg] NATHANIEL LEA DO [facility] 09-06-2021 23:09-0400 Body temperature 97.88 [degF] NATHANIEL LEA DO [facility] 09-06-2021 23:09-0400 Diastolic blood pressure 64 mm[Hg] NATHANIEL LEA DO [facility] 09-06-2021 23:09-0400 Heart rate 90 /min NATHANIEL LEA DO [facility] 09-06-2021 23:09-0400 Respiratory rate 18 /min NATHANIEL LEA DO [facility] 09-06-2021 23:09-0400 Systolic blood pressure 114 mm[Hg] NATHANIEL LEA DO [facility] 09-06-2021 19:30-0400 Mean blood pressure 76 mm[Hg] NATHANIEL LEA DO [facility] 09-06-2021 19:30-0400 Reason For Taking VItal Signs NATHANIEL LEA DO [facility] 09-06-2021 11:49-0400 Body height 160 cm NATHANIEL LEA DO [facility] 09-06-2021 11:49-0400 Body weight 54 kg NATHANIEL LEA DO [facility] 09-06-2021 11:49-0400 Body weight 21.09 kg/m2 NATHANIEL LEA DO [facility] 09-06-2021 11:00-0400 Diastolic Blood Pressure NBP 85 1 NATHANIEL LEA DO [facility] 09-06-2021 11:00-0400 Systolic Blood Pressure NBP 128 1 NATHANIEL LEA DO [facility] 09-06-2021 10:44-0400 Diastolic Blood Pressure NBP 62 1 NATHANIEL LEA DO [facility] 09-06-2021 10:44-0400 Systolic Blood Pressure NBP 119 1 NATHANIEL LEA DO [facility] 09-06-2021 10:30-0400 Diastolic Blood Pressure NBP 82 1 NATHANIEL LEA DO [facility] 09-06-2021 10:30-0400 Systolic Blood Pressure NBP 133 1 NATHANIEL LEA DO [facility] 09-06-2021 10:08-0400 Body temperature 96.8 [degF] NATHANIEL LEA DO [facility] 09-06-2021 09:45-0400 Body temperature 98.02 [degF] NATHANIEL LEA DO [facility] 09-06-2021 09:40-0400 Body temperature 98.06 [degF] NATHANIEL LEA DO [facility] 09-06-2021 09:35-0400 Body temperature 98.06 [degF] NATHANIEL LEA DO [facility] 09-06-2021 06:13-0400 Body height 160 cm NATHANIEL LEA DO [facility] 09-06-2021 06:13-0400 Body temperature 97.34 [degF] NATHANIEL LEA DO [facility] 09-06-2021 06:13-0400 Body weight 54 kg NATHANIEL LEA DO [facility] 09-06-2021 06:13-0400 Heart rate 83 /min NATHANIEL LEA DO [facility] 08-17-2021 13:21-0400 Body height 160 cm NATHANIEL LEA DO [facility] 08-17-2021 13:21-0400 Body weight 54 kg NATHANIEL LEA DO [facility] 08-17-2021 13:21-0400 Body weight 21.09 kg/m2 NATHANIEL LEA DO [facility] 08-17-2021 13:21-0400 Heart rate 80 /min NATHANIEL LEA DO [facility] 08-17-2021 13:21-0400 Respiratory rate 20 /min NATHANIEL LEA DO [facility] Encounters Encounter Date Encounter Type Care Provider Facility Start: 03-01-2023 ambulatory DAVID Viramontes [facility] Start: 12-08-2022 End: 12-08-2022 ambulatory ALYSON BECKFORD [facility] Start: 10-31-2022 ambulatory KAREN CERNA [facility] Start: 10-31-2022 End: 10-31-2022 Emergency department patient visit DREW LOPEZ [facility] Start: 08-03-2022 End: 12-08-2022 ambulatory KAREN PARIS [facility] Start: 07-17-2022 End: 07-17-2022 Emergency department patient visit KAREN PARIS [facility] Start: 06-15-2022 End: 06-15-2022 ambulatory NUBIA TAFOYA Facility:[facility] Start: 06-13-2022 End: 06-14-2022 ambulatory NUBIA TAFOYA Facility:[facility] Start: 06-13-2022 End: 06-13-2022 Patient encounter procedure Nubia Tafoya MD Work Phone: General Surgery Procedures Date Procedure Procedure Detail Performing Clinician Start: 10-31-2022 Urinalysis KAREN LICONA Plan of Treatment Date Care Activity Detail Author Start: 10-13-2022 Influenza vaccination [facility]UENZA (Season [facility]ed[facility] Start: 02-12-2022 DEPRESSION ASSESSMENT DEPRESSION ASSESSMENT [facility] Start: 09-09-2018 LIPID SCREEN LIPID SCREEN [facility] Start: 08-20-2018 DIABETES SCREEN DIABETES SCREEN [facility] Start: 11-20-2003 COLOGUARD (FIT-DNA) COLOGUARD (FIT-DNA) [facility] Start: 11-20-2003 Colonoscopy COLONOSCOPY [facility] Start: 11-20-2003 COLORECTAL CANCER SCREENING COLORECTAL CANCER SCREENING [facility] Start: 11-20-[address] COLONOGRAPHY [facility] Start: 11-20-2003 FECAL OCCULT BLOOD FECAL OCCULT BLOOD [facility] Start: 11-20-2003 SIGMOIDOSCOPY SIGMOIDOSCOPY [facility] Start: 1998 Mammography MAMMOGRAM [facility] Start: 1988 HPV TESTING HPV TESTING [facility] Start: 11-20-1979 PAP TESTING PAP TESTING [facility] Start: 1977 SHINGRIX VACCINE (1 of 2) SHINGRIX VACCINE (1 of 2) [facility] Start: 1977 Urine microalbumin profile DTAP,TDAP,TD (1 - Tdap) [facility] Start: 1976 HEPATITIS C SCREENING HEPATITIS C SCREENING [facility] Start: 1976 HIV SCREENING HIV SCREENING [facility] Start: 1964 PNEUMOCOCCAL (1 - PCV) PNEUMOCOCCAL (1 - PCV) [facility] Start: 05-21-1959 COVID-19 VACCINE (#1) COVID-19 VACCINE (#1) [facility] End: 06-14-2023 EGD DIAGNOSTIC EGD DIAGNOSTIC Endoscopy Routine Epigastric abdominal pain 1 Occurrences starting 06/13/2022 until 06/14/2023 [facility] Work Phone: Immunizations Immunization Date Immunization Notes Care Provider Dick fuller 12-06-2020 influenza virus vacc ine, unspecified formulation NATHANIEL LEA DO [facility] 01-04-2018 influenza virus vacc ine, unspecified formulation NATHANIEL LEA DO [facility] 12-03-2015 influenza virus vacc ine, unspecified formulation NATHANIEL LEA DO [facility] 10-24-2012 tetanus toxoid, redu destini diphtheria toxoid, and acellular pertussis vaccine, adsorbed NATHANIEL LEA DO [facility] 12-01-2009 pneumococcal polysaccharide vaccine, 23 valent NATHANIEL LEA DO [facility] Payers Date Payer Category Payer Medicaid [place] [id number] 2018-Present [phone] [address] [place] [address] Medicaid [id number] 2018 Medicaid [id number] 1960 Unknown [id number] 51 1960 Unknown [id number] 51 1960 Unknown [id number] 51 1960 Unknown [id number] 51 1960 Unknown [id number] 51 1960 Unknown [id number] 51 1960 Unknown [id number] 51 1960 Unknown [id number] 51 Medicare [id number] Private Health Insurance 121 [id number] Unknown [id number] Social History Date Type Detail Facility Start: 04-26-2015 End: 08-17-2021 Tobacco smoking status Ex-smoker (finding) [facility] Sex Assigned At Sex [facility] History of tobacco use Current smoker [facility] Start: 04-26-2015 Tobacco use and exposure Smokeless tobacco non-user [facility] Start: 06-13-2022 Alcohol intake Current non-dr sausage linker of alcohol (finding) [facility] Start: 1960 Sex Assigned At Not on file C [facility] Functional Status Date Assessment Result Facility 09-07-2021 Functional Status Denies recent falls. [facility] 09-07-2021 Functional Status bilateral knee high l [facility] 09-07-2021 Functional Status 11 [facility] 09-07-2021 Functional Status [facility] 09-07-2021 Functional Status [facility] 09-06-2021 Functional Status Multilevel home [facility] 09-06-2021 Functional Status ice on [facility] 09-06-2021 Functional Status NPO Status Marlyn ntained, More than 8 hours [facility] 08-17-2021 Functional Status Sensory Deficits None A [facility] Mental Status Date Assessment Result Facility 09-07-2021 Mental Status Orientation Asse ssment Oriented x 4 [facility] 09-07-2021 Mental Status Oriented x 4 [facility] 09-06-2021 Mental Status [facility] 09-06-2021 Mental Status [facility] Clinical Notes 09-06-2021 to 06-13-2022 Lucretia Nelson RN - 06/13/2022 2:27 PM EDTLobinna Tafoya MD - 06/13/2022 2:23 PM EDT Note Date & Type Note Facility 06-13-2022 Note HNO ID: [id number] Author: Nubia Tafoya MD Service: ? Author Type: Physician Type: Progress Notes Filed: 06/14/2022 3:48 PM Note Text: HISTORY AND PHYSICAL Regis Hernandez 1960 REFERRING PHYSICIAN: Self CHIEF COMPLAINT: Consult (Abd pain) HPI: The patient is a 61 year old female referred for endoscopy. Regis notes epigastric abdominal pain. She had recent colonoscopy in the past year. She notes epigastric abdominal pain. She also complains of acid reflux. The above has been going on for about a year. She was to have an upper endoscopy but found out that they didn't take her insurance. She notes nausea, but denies emesis. She states that she has had stomach surgery and hiatal hernia surgery about 8-9 years ago. She has a history of illicit drug use; she takes neurontin for chronic pain. Patient is also on buspirone and trazadone, noted from patient's PCP's office notes. PAST MEDICAL HISTORY Diagnosis Date Abdominal pain, other specified site Amphetamine and other psychostimulant dependence, episodic (HCC) Leavitt esophagus Chronic rheumatic arthritis (HCC) Chronic right shoulder pain Esophagitis, unspecified Hot flashes Iron deficiency anemia, unspecified Major depressive disorder, recurrent episode, moderate (HCC) Migraines Osteopenia Restless legs syndrome (RLS) PAST SURGICAL HISTORY Procedure Laterality Date ESOPHAGOGASTRODUODENOSCOPY TRANSORAL DIAGNOSTIC 02/17/2010 EGD ESOPHAGOGASTRODUODENOSCOPY TRANSORAL DIAGNOSTIC EGD ESOPHAGOGASTRODUODENOSCOPY TRANSORAL DIAGNOSTIC 11/27/2011 EGD LAPAROSCOPY FUNDOPLASTY 2014 PAST SURGICAL HISTORY OF 02/17/2010 hernia REPAIR ROTATOR CUFF,ACUTE Left SHOULDER SURGERY HX SPINE SURGERY HX sacral, uuper lumbar, neck TOTAL ABDOM HYSTERECTOMY Current Outpatient Medications Medication Sig pramipexole (MIRAPEX) 0.5 mg tablet Take 0.5 mg by mouth daily at bedtime. metroNIDAZOLE (FLAGYL) 500 mg tablet hydrOXYzine HCl (ATARAX) 25 mg tablet Take 25 mg by mouth. gabapentin (NEURONTIN) 300 mg capsule Take 1 capsule by mouth three times daily. pregabalin (LYRICA) 100 mg capsule Take 100 mg by mouth twice daily. (Patient not taking: Reported on 06/13/2022) FOLIC ACID ORAL Take by mouth. (Patient not taking: Reported on 06/13/2022) methotrexate 2.5 mg tablet Take by mouth one time only. (Patient not taking: Reported on 06/13/2022) COMPOUNDED PRESCRIPTION embrol- injection in knees (Patient not taking: Reported on 06/13/2022) lidocaine (XYLOCAINE) 5 % ointment Apply 1 application to affected area three times daily as needed. (Patient not taking: Reported on 06/13/2022) ALLERGIES: Patient has no known allergies. PERSONAL HISTORY: Social History Tobacco Use Smoking status: Former Smokeless tobacco: Never Vaping Use Vaping Use: Never used Substance Use Topics Alcohol use: No Drug use: Not Currently Types: Amphetamines Comment: last use 2020 FAMILY HISTORY Problem Relation Age of Onset Heart disease Mother Cancer Mother Melanoma other (CHF [Other]) Father Hypertension Father Heart disease Father Diabetes Father other (cancer,thyroid [Other]) Sister Colon Cancer Maternal Grandmother The review of systems data was entered by the nurse and reviewed by vt Nursing Notes: Lucretia Nelson RN 06/13/2022 2:29 PM Signed REVIEW OF SYSTEMS: General: The patient NOTES fatigue, denies weight loss, denies weight gain, denies feeling hot, and denies feelings of cold. Eyes: The patient denies glaucoma, NOTES eye injury/surgery, wears glasses or contacts. Ear/Nose/Throat: The patient NOTES allergies, denies hayfever, denies ear infections, and denies bloody noses. Cardiovascular: The patient denies chest pain, denies heart disease, denies high blood pressure,denies cardiac stent, denies prior heart attack, denies irregular heart beat, NOTES high cholesterol, denies poor circulation, denies heart failure, other cardiac issues, NOTES claudication, denies cold feet, denies peripheral arterial stent. Respiratory: The patient denies tuberculosis, NOTES pneumonia, denies frequent cough, denies pulmonary embolism, denies shortness of breath, and denies coughing up blood. Gastrointestinal: The patient NOTES difficulty swallowing, NOTES acid reflux, NOTES ulcers, denies vomiting, denies jaundice/hepatitis, denies gallbladder problems, denies black or tarry stools, denies hemorrhoids, denies bleeding from rectum, denies diverticulitis, denies constipation, denies diarrhea, denies loss of stool control, and denies hernias. Kidney/Bladder: The patient denies kidney stones, denies urine infections, and denies bloody urine. Skin: The patient denies a history of skin cancer, denies bleeding/changing moles, and denies a history of skin rash. Neurologic: The patient denies a history of epilepsy/convulsions, NOTES headaches, NOTES head/spinal injuries, and NOTES stroke/TIA. (more content not included)... [facility] 06-13-2022 Nurse Note REVIEW OF SYSTEMS: General: The patient NOTES fatigue, denies weight loss, denies weight gain, denies feeling hot, and denies feelings of cold. Eyes: The patient denies glaucoma, NOTES eye injury/surgery, wears glasses or contacts. Ear/Nose/Throat: The patient NOTES allergies, denies hayfever, denies ear infections, and denies bloody noses. Cardiovascular: The patient denies chest pain, denies heart disease, denies high blood pressure,denies cardiac stent, denies prior heart attack, denies irregular heart beat, NOTES high cholesterol, denies poor circulation, denies heart failure, other cardiac issues, NOTES claudication, denies cold feet, denies peripheral arterial stent. Respiratory: The patient denies tuberculosis, NOTES pneumonia, denies frequent cough, denies pulmonary embolism, denies shortness of breath, and denies coughing up blood. Gastrointestinal: The patient NOTES difficulty swallowing, NOTES acid reflux, NOTES ulcers, denies vomiting, denies jaundice/hepatitis, denies gallbladder problems, denies black or tarry stools, denies hemorrhoids, denies bleeding from rectum, denies diverticulitis, denies constipation, denies diarrhea, denies loss of stool control, and denies hernias. Kidney/Bladder: The patient denies kidney stones, denies urine infections, and denies bloody urine. Skin: The patient denies a history of skin cancer, denies bleeding/changing moles, and denies a history of skin rash. Neurologic: The patient denies a history of epilepsy/convulsions, NOTES headaches, NOTES head/spinal injuries, and NOTES stroke/TIA. Psychiatric: The patient NOTES psychiatric medications, NOTES depression, and denies voices, denies substance abuse. Endocrine: The patient denies thyroid disorders, denies diabetes, and denies hormonal problems. Hematologic: The patient denies a history of bruising, denies bleeding, and denies anemia, denies blood clots. Infections: The patient denies a history of measles and mumps, denies rheumatic fever, and denies sexually transmitted diseases. Musculoskeletal: The patient NOTES back pain/injury, NOTES back problems, denies sciatica, denies knee/foot trouble, NOTES arthritis, or denies gout. When was patient's last Mammogram screening? 2020 Last Colonoscopy: 2020 Lucretia Nelson RN documented in this encounter [facility] 06-13-2022 History of Present illness Narrative HISTORY AND PHYSICAL Regis Hernandez 1960 REFERRING PHYSICIAN: Self CHIEF COMPLAINT: Consult (Abd pain) HPI: The patient is a 61 year old female referred for endoscopy. Regis notes epigastric abdominal pain. She had recent colonoscopy in the past year. She notes epigastric abdominal pain. She also complains of acid reflux. The above has been going on for about a year. She was to have an upper endoscopy but found out that they didn't take her insurance. She notes nausea, but denies emesis. She states that she has had stomach surgery and hiatal hernia surgery about 8-9 years ago. She has a history of illicit drug use; she takes neurontin for chronic pain. Patient is also on buspirone and trazadone, noted from patient's PCP's office notes. PAST MEDICAL HISTORY Diagnosis Date Abdominal pain, other specified site Amphetamine and other psychostimulant dependence, episodic (HCC) Leavitt esophagus Chronic rheumatic arthritis (HCC) Chronic right shoulder pain Esophagitis, unspecified Hot flashes Iron deficiency anemia, unspecified Major depressive disorder, recurrent episode, moderate (HCC) Migraines Osteopenia Restless legs syndrome (RLS) PAST SURGICAL HISTORY Procedure Laterality Date ESOPHAGOGASTRODUODENOSCOPY TRANSORAL DIAGNOSTIC 02/17/2010 EGD ESOPHAGOGASTRODUODENOSCOPY TRANSORAL DIAGNOSTIC EGD ESOPHAGOGASTRODUODENOSCOPY TRANSORAL DIAGNOSTIC 11/27/2011 EGD LAPAROSCOPY FUNDOPLASTY 2014 PAST SURGICAL HISTORY OF 02/17/2010 hernia REPAIR ROTATOR CUFF,ACUTE Left SHOULDER SURGERY HX SPINE SURGERY HX sacral, uuper lumbar, neck TOTAL ABDOM HYSTERECTOMY Current Outpatient Medications Medication Sig pramipexole (MIRAPEX) 0.5 mg tablet Take 0.5 mg by mouth daily at bedtime. metroNIDAZOLE (FLAGYL) 500 mg tablet hydrOXYzine HCl (ATARAX) 25 mg tablet Take 25 mg by mouth. gabapentin (NEURONTIN) 300 mg capsule Take 1 capsule by mouth three times daily. pregabalin (LYRICA) 100 mg capsule Take 100 mg by mouth twice daily. (Patient not taking: Reported on 06/13/2022) FOLIC ACID ORAL Take by mouth. (Patient not taking: Reported on 06/13/2022) methotrexate 2.5 mg tablet Take by mouth one time only. (Patient not taking: Reported on 06/13/2022) COMPOUNDED PRESCRIPTION embrol- injection in knees (Patient not taking: Reported on 06/13/2022) lidocaine (XYLOCAINE) 5 % ointment Apply 1 application to affected area three times daily as needed. (Patient not taking: Reported on 06/13/2022) ALLERGIES: Patient has no known allergies. PERSONAL HISTORY: Social History Tobacco Use Smoking status: Former Smokeless tobacco: Never Vaping Use Vaping Use: Never used Substance Use Topics Alcohol use: No Drug use: Not Currently Types: Amphetamines Comment: last use 2020 FAMILY HISTORY Problem Relation Age of Onset Heart disease Mother Cancer Mother Melanoma other (CHF [Other]) Father Hypertension Father Heart disease Father Diabetes Father other (cancer,thyroid [Other]) Sister Colon Cancer Maternal Grandmother The review of systems data was entered by the nurse and reviewed by vt Nursing Notes: Lucretia Nelson RN 06/13/2022 2:29 PM Signed REVIEW OF SYSTEMS: General: The patient NOTES fatigue, denies weight loss, denies weight gain, denies feeling hot, and denies feelings of cold. Eyes: The patient denies glaucoma, NOTES eye injury/surgery, wears glasses or contacts. Ear/Nose/Throat: The patient NOTES allergies, denies hayfever, denies ear infections, and denies bloody noses. Cardiovascular: The patient denies chest pain, denies heart disease, denies high blood pressure,denies cardiac stent, denies prior heart attack, denies irregular heart beat, NOTES high cholesterol, denies poor circulation, denies heart failure, other cardiac issues, NOTES claudication, denies cold feet, denies peripheral arterial stent. Respiratory: The patient denies tuberculosis, NOTES pneumonia, denies frequent cough, denies pulmonary embolism, denies shortness of breath, and denies coughing up blood. Gastrointestinal: The patient NOTES difficulty swallowing, NOTES acid reflux, NOTES ulcers, denies vomiting, denies jaundice/hepatitis, denies gallbladder problems, denies black or tarry stools, denies hemorrhoids, denies bleeding from rectum, denies diverticulitis, denies constipation, denies diarrhea, denies loss of stool control, and denies hernias. Kidney/Bladder: The patient denies kidney stones, denies urine infections, and denies bloody urine. Skin: The patient denies a history of skin cancer, denies bleeding/changing moles, and denies a history of skin rash. Neurologic: The patient denies a history of epilepsy/convulsions, NOTES headaches, NOTES head/spinal injuries, and NOTES stroke/TIA. Psychiatric: The patient NOTES psychiatric medications, NOTES depression, and denies voices, denies substance abuse. Endocrine: The patient denies thyroid disorders, denies diabetes, and denies hormonal problems. Hematologic: The patient denies a history of bruising, denies bleeding, and denies anemia, denies blood clots. Infections: The patient denies a history of measles and mumps, denies rheumatic fever, and denies sexually transmitted diseases. Musculoskeletal: The patient NOTES back pain/injury, NOTES back problems, denies sciatica, denies knee/foot trouble, NOTES arthritis, or denies gout. When was patient's last Mammogram screening? 2020 Last Colonoscopy: 2020 Lucretia Nelson RN PHYSICAL EXAMINATION: General: The patient is 61 year old female, well nourished, well hydrated in no acute distress. The patient is oriented to time, place, and person. VITALS: Blood pressure 110/64, pulse 106, temperature 36.4 C (97.6 F), height 157.5 cm (5' 2 ), weight 57.3 kg (126 lb 6.4 oz), SpO2 95 %. Body mass index is 23.12 kg/m . Head: Normal cephalic, atraumatic Eyes: pupils are equally round, sclera are clear/anicteric Neck is supple with no tracheal deviation Respiratory: Normal respiratory excursion and pattern. Abdominal exam: benign Extremities: no clubbing, cyanosis or edema. Neuro: non focal Psych: normal mood Assessment IMPRESSION: epigastric abdominal pain, acid reflux, s/p gastric surgery PLAN: I have discussed the above with the patient. I have offered EGD, possible biopsies I have explained the procedure to the patient. I have counseled the patient as to the risks of the procedure, including but not limited to: infection, bleeding, injury to any intrabdominal organs such as liver/spleen, perforation of the GI tract, inability to complete the procedure, complications of anesthesia, etc. - the patient understands. I have explained to the patient the difference between IV conscious sedation and MAC anesthesia - and I have offered either, according to the patient's wishes. I have explained that with IV conscious sedation there is no anesthesia provider available and therefore there is a limitation of the amount of IV medications that can be given and that the patient may wake up in the middle of the procedure and/or experience pain/discomfort during the procedure. Further discussion was done and the patient was given the opportunity to ask questions and all questions were answered. The patient chooses MAC anesthesia. Patient was counseled that if there are changes in his/her medical condition, to let the office know if surgery should proceed. If there are changes in patient's medical condition from time of this encounter to the day of the procedure that preclude anesthesia, patient may have procedure cancelled for patient's safety. The patient wishes to proceed. I have answered all questions to the patient s satisfaction and the patient has no further questions. Diagnoses: (R10.13) Epigastric abdominal pain (primary encounter diagnosis) I have confirmed and edited as necessary, the PFSH and ROS obtained by others. Return to Clinic: The patient will be scheduled for EGD, possible biopsies to be done at [facility]. Medical Decision Making: Problems: Low: Stable chronic illness Risk: Low: Low risk from testing/treatment Medical Decision Making Level: 3 - Low Nubia Tafoya MD documented in this encounter [facility] 09-07-2021 Note Discharge Instructions Thank you for allowing [facility] to assist you with your healthcare needs. The following is important discharge information regarding your hospital visit. Your Care Team KAREN CERNA Your Diagnosis Rheumatoid arthritis Fibromyalgia Migraine Depression TIA Cervical spondylosis What to do next Instructions From Your Doctor Activity: Do not drive, smoke, operate machinery, return to work, or engage in activities that require you to be alert when taking narcotics, pain relievers or muscle relaxants No reaching overhead Do not turn your head from side to side, turn your upper body Wear both ROGER hose continuously for 6 weeks Remove during shower time and replaced with a clean pair Wash with soap and water, then hang dry for next use No heavy lifting, pulling, or pushing more than 10 pounds for 3 months Must wear your cervical collar at all times Call Dr. Lea office if: You have any difficulty breathing, swallowing, or swelling of your throat You have a sore throat that does not go away with ice chips, lozenges, pain meds etc. You fall at home, call immediately You experience numbness and/or tingling in your arms or legs that is changed or increased after discharge You develop chills, and/or fever greater than 100 degrees You have drainage from your incision, especially bloody or thick yellow You have increased redness or swelling around the incision You have severe or continued headaches, especially if no headaches were present in the hospital You start having increased pain that is not relieved by your medicine You run out of pain medication Care for your incision: Never put anything on your incision, no creams lotions or antibiotic ointment No hot tubs, swimming, or soaking in water for 6 weeks, or until your incision is healed To shower, cover your incision with a 4 x 4, Tegaderm dressing, and you must wear your cervical collar Change the dressing to your neck daily using a dry 4 x 4 and tape Wear your bone growth stimulator if given 1 daily as instructed If you need to shave using electric razor, do not tilt your head back or shave over the incision General reminders: Do not take any medications, herbal, prescription, or [id number]-hcflgfa unless prescribed for the next 12 weeks Remember to take your pain medication and/or muscle relaxants as ordered to keep your pain under control No NSAIDs for 3 months, will interfere with the fusion. Swelling around the nerves can cause continued numbness and tingling for days or weeks after surgery Follow Up Appointments Follow Up with NATHANIEL LEA DO, Orthopedic When 09/28/2021 01:30 PM EDT Why: Follow-up as scheduled Where: [address] [place] [address], [address] [facility] [place] [address]- [phone] The Following Activity and Diet Have Been Ordered for You No qualifying data available. No qualifying data available. The Following Equipment Has Been Ordered for You No qualifying data available. The Following Treatments Have Been Ordered for You Discharge Labs No qualifying data available. Discharge Radiology No qualifying data available. Other Therapies No qualifying data available. Post Acute Orders No qualifying data available. Someone Will Contact You Regarding These Home Health Referrals No home referrals have been ordered for you. No one will call you. Allergies codeine (Stomach upset) Medications Please ask your primary doctor or pharmacist before taking any other medication not listed, including over the counter drugs, herbal medications, vitamins and or supplements as they may interact with your home medications. What How Much When Why Instructions Last Dose Unchanged acetaminophen-hydrocodone (Vienna 325- 5 mg oral tablet) 1 tab(s) by mouth Every 6 hours as needed for for pain Cervical spondylosis Duration: 7 Days Pickup at [id number] Unchanged busPIRone (busPIRone 30 mg oral tablet) 1 tab(s) by mouth Two (2) times a day Unchanged herbal/ nutritional product 1 cap by mouth Once a day Estroven Complete Multi-Symptom Menopause Relief Unchanged hydrOXYzine (hydrOXYzine hydrochloride 25 mg oral tablet) 1 tab(s) by mouth Daily at bedtime as needed for Insomnia Unchanged loratadine (loratadine 10 mg oral tablet) 1 tab(s) by mouth Once a day Unchanged pantoprazole (pantoprazole 20 mg oral enteric coated tablet) 1 tab(s) by mouth Once a day before a meal Unchanged pramipexole (pramipexole 0.5 mg oral tablet) 1 tab(s) by mouth Daily at bedtime Unchanged venlafaxine (venlafaxine 75 mg oral capsule, extended release) 3 cap by mouth Once a day with a meal Pharmacy Information [id number]: [address], [place] [phone] Please take this list to your next doctor s visit. Bring all medications you take, including over the counter medications, herbals and other supplements with you to your doctor s visit. Patients and families are reminded to discard old lists and to update any records with all medication providers or retail pharmacies. Education Materials Anterior Cervical Diskectomy and Fusion, Care After This sheet gives you information about how to care for yourself after your procedure. Your health care provider may also give you more specific instructions. If you have problems or questions, contact your health care provider. What can I expect after the procedure? After the procedure, it is common to have: Neck pain. Discomfort when swallowing. Slight hoarseness. Follow these instructions at home: If you have a neck brace: Wear it as told by your health care provider. Remove it only as told by your health care provider. Keep the brace clean and dry. Ask your health care provider if you should remove the brace to bathe or shower. Incision care Follow instructions from your health care provider about how to take care of your incision. Make sure you: ? Wash your hands with soap and water before and after you change your bandage (dressing). If soap and water are not available, use hand petroleum products district supervisor. ? Change your dressing as told by your health care provider. ? Leave stitches (sutures), skin glue, or adhesive strips in place. These skin closures may need to stay in place for 2 weeks or longer. If adhesive strip edges start to loosen and curl up, you may trim the loose edges. Do not remove adhesive strips completely unless your health care provider tells you to do that. Check your incision area every day for signs of infection. Check for: ? Redness, swelling, or pain. ? Fluid or blood. ? Warmth. ? Pus or a bad smell. Managing pain, stiffness, and swelling Take ffxq-oim-dophhxl and prescription medicines only as told by your health care provider. If directed, put ice on the injured area. ? If you have a removable brace, remove it as told by your health care provider. ? Put ice in a plastic bag. ? Place a towel between your skin and the bag. ? Leave the ice on for 20 minutes, 2 3 times a day. Activity Return to your normal activities as told by your health care provider. Ask your health care provider what activities are safe for you. Do exercises as told by your health care provider. Do not take baths, swim, or use a hot tub until your health care provider approves. Do not lift anything that is heavier than 10 lb (4.5 kg), or the limit that you are told, until your health care provider says that it is safe. General instructions Ask your health care provider if the medicine prescribed to you: ? Requires you to avoid driving or using heavy machinery. ? Can cause constipation. You may need to take actions to prevent or treat constipation, such as: ? Drink enough fluid to keep your urine pale yellow. ? Take iocz-ocb-ovpjwty or prescription medicines. ? Eat foods that are high in fiber, such as beans, whole grains, and fresh fruits and vegetables. ? Limit foods that are high in fat and processed sugars, such as fried and sweet foods. Do not use any products that contain nicotine or tobacco, such as cigarettes, e-cigarettes, and chewing tobacco. These can delay healing. If you need help quitting, ask your health care provider. Keep all follow-up visits and physical therapy appointments as told by your health care provider. This is important. Contact a health care provider if you have: A fever. Redness, swelling, or pain around your incision. Fluid or blood coming from your incision. Pus or a bad smell coming from your incision. Pain that is not controlled by your pain medicine. Increasing hoarseness or trouble swallowing. Get help right away if you have: Severe pain. Sudden numbness or weakness in your arms. Warmth, tenderness, or swelling in your calf. Chest pain. Difficulty breathing. Summary After the procedure, it is common to have neck pain, discomfort when swallowing, and slight hoarseness. Follow instructions from your health care provider about how to take care of your incision. Check your incision area every day for signs of infection. Return to your normal activities as told by your health care provider. Ask your health care provider what activities are safe for you. Contact a health care provider if you have signs of infection at your incision. This information is not intended to replace advice given to you by your health care provider. Make sure you discuss any questions you have with your health care provider. Document Released: 02/25/2016 Document Revised: 10/24/2018 Document Reviewed: 10/24/2018 [employer] Patient Education 2020 [employer] Additional Information VACCINATE! IT SAVES LIVES! Members of the community who have not yet received the COVID-19 vaccine and would like to receive it can visit one of [facility] vaccine clinics. There are many vaccine clinic locations within the [facility]. For locations and available times, please visit [email or web address] It is important to note that some COVID mobile vaccine clinics are held outdoors and may be canceled in rainy or stormy conditions. To learn more about pediatric vaccinations (ages 5-11), we invite you to visit the [facility] webpage. [email or web address]-[email or web address]-Frequently-[email or web address] -Questions.html To learn more about the COVID-19 vaccine, we invite you to visit the [facility] website for a list of frequently asked questions. [email or web address] [facility] [email or web address] Patient Portal Access Instructions: Stay connected with your healthcare team and access your personal medical information anytime with the [facility] Patient Portal.If you would like a full copy of your medical records, please contact the [facility] Medical Records Department, Sunday through Sunday between 8a.m. and 4:30p.m. Please follow the directions below to access the portal: 1.Access the email account you provided upon registration to the [facility].2.Look for an invitation email from [facility].3.Open the email and access the invitation link: Accept Invitation to [email or web address].Fill in the required recinos to create your account. Sign into www.Secret Recipe with your username and password that you created in the above steps to stay up to date. You can then view a summary of results, a summary of your visits, and the ability to download your summaries to your computer or send the information securely to a physician. Remember that your healthcare information is confidential, so carefully consider who you will allow to register on the [facility] Patient Portal for access to your information. You can also access the [facility] Patient Portal on the [facility] ken. Simply click on Health Records under Health Data and then click on the [employer] logo. HOW TO SAFELY DISPOSE OF PRESCRIPTION MEDICATIONS Please use one of the following methods to safely dispose of your unused medications. 1.Use a drug disposal kit: the drug disposal pouch allows you to safely discard your old and unused drugs. Ask your nurse to give you one when you are discharged.2.Visit a local take-back location: Many local pharmacies and police departments have programs that collect old and unwanted prescription drugs. Call your local pharmacy or go to http://[employer] EHR/[email or web address] to find one close to you.3.Make use of household items: Use cat litter or old coffee grounds to dispose medications if other options are not available. Mix your drugs with these household products, seal them in an airtight container and throw it into the garbage. Call [facility]: [phone] to be sure your drugs can be disposed of in this way. Some medicines may require a different approach.4.Never flush your medications down the toilet. IF YOU HAVE BEEN PRESCRIBED AN OPIOID FOR PAIN If you have been prescribed an opioid (such as hydrocodone, oxycodone or morphine), it is critical to understand the possible side effects and risks of opioid pain medications. Even when taken as directed, opioids can have several side effects including: Tolerance, meaning you might need to take more of a medication for the same pain relief. Nausea, vomiting and/or constipation. Sleepiness, dizziness, dry mouth, confusion, depression or itching. Physical dependence, meaning you have withdrawal symptoms when a medication is stopped, can develop within a few days. KNOW YOUR RESPONSIBILITIES It is important to know exactly how much and how often to take the opioid pain medications you are prescribed. Never take opioids in higher amounts or more often than prescribed. Do not combine opioids with alcohol or other drugs that cause drowsiness, such as benzodiazepines, also known as benzos, including diazepam and alprazolam, muscle relaxants or sleep aids. Never sell or share prescription opioids. This is illegal. Store opioids in a secure place and out of reach of others (including children, family, friends and visitors). The last page of this document has been signed and retained as a CHART COPY. Signatures Patient Education Materials Anterior Cervical Diskectomy and Fusion, Care After Medication Leaflets My discharge plan and instructions have been reviewed and explained to me and I,REGIS HERNANDEZ understand my current condition and have read and understand these discharge instructions. I have received a written copy of the plan/instructions. If I have questions, I am aware that I should contact my doctor. 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 Your health care provider may also give you more specific instructions. If you have problems or questions, contact your health care provider. What can I expect after the procedure? After the procedure, it is common to have: Neck pain. Discomfort when swallowing. Slight hoarseness. Follow these instructions at home: If you have a neck brace: Wear it as told by your health care provider. Remove it only as told by your health care provider. Keep the brace clean and dry. Ask your health care provider if you should remove the brace to bathe or shower. Incision care Follow instructions from your health care provider about how to take care of your incision. Make sure you: ?Wash your hands with soap and water before and after you change your bandage (dressing). If soap and water are not available, use hand petroleum products district supervisor. ?Change your dressing as told by your health care provider. ?Leave stitches (sutures), skin glue, or adhesive strips in place. These skin closures may need to stay in place for 2 weeks or longer. If adhesive strip edges start to loosen and curl up, you may trim the loose edges. Do not remove adhesive strips completely unless your health care provider tells you to do that. Check your incision area every day for signs of infection. Check for: ?Redness, swelling, or pain. ?Fluid or blood. ?Warmth. ?Pus or a bad smell. Managing pain, stiffness, and swelling Take ontz-cqz-wfbbelp and prescription medicines only as told by your health care provider. If directed, put ice on the injured area. ?If you have a removable brace, remove it as told by your health care provider. ?Put ice in a plastic bag. ?Place a towel between your skin and the bag. ?Leave the ice on for 20 minutes, 2 3 times a day. Activity Return to your normal activities as told by your health care provider. Ask your health care provider what activities are safe for you. Do exercises as told by your health care provider. Do not take baths, swim, or use a hot tub until your health care provider approves. Do not lift anything that is heavier than 10 lb (4.5 kg), or the limit that you are told, until your health care provider says that it is safe. General instructions Ask your health care provider if the medicine prescribed to you: ?Requires you to avoid driving or using heavy machinery. ?Can cause constipation. You may need to take actions to prevent or treat constipation, such as: ?Drink enough fluid to keep your urine pale yellow. ?Take swlr-pgs-qkqutra or prescription medicines. ?Eat foods that are high in fiber, such as beans, whole grains, and fresh fruits and vegetables. ?Limit foods that are high in fat and processed sugars, such as fried and sweet foods. Do not use any products that contain nicotine or tobacco, such as cigarettes, e-cigarettes, and chewing tobacco. These can delay healing. If you need help quitting, ask your health care provider. Keep all follow-up visits and physical therapy appointments as told by your health care provider. This is important. Contact a health care provider if you have: A fever. Redness, swelling, or pain around your incision. Fluid or blood coming from your incision. Pus or a bad smell coming from your incision. Pain that is not controlled by your pain medicine. Increasing hoarseness or trouble swallowing. Get help right away if you have: Severe pain. Sudden numbness or weakness in your arms. Warmth, tenderness, or swelling in your calf. Chest pain. Difficulty breathing. Summary After the procedure, it is common to have neck pain, discomfort when swallowing, and slight hoarseness. Follow instructions from your health care provider about how to take care of your incision. Check your incision area every day for signs of infection. Return to your normal activities as told by your health care provider. Ask your health care provider what activities are safe for you. Contact a health care provider if you have signs of infection at your incision. This information is not intended to replace advice given to you by your health care provider. Make sure you discuss any questions you have with your health care provider. Document Released: 02/25/2016 Document Revised: 10/24/2018 Document Reviewed: 10/24/2018 [employer] Patient Education 2020 [email or web address]. Follow Up Care 07/15/2021 09:05:53 With:NATHANIEL LEA DO, Orthopedic Address: [address] [place] [address], [address] [facility] [place] [address]- [phone] When:09/28/2021 13:30:00 Comments:Follow-up as scheduled [facility] 09-07-2021 Note Date of Service 09/07/2021 Chief Complaint Pain in her incision. Subjective Patient seen and evaluated while resting in bed. She states that she is feeling pretty good this morning other than pain in her incision. She denies any new problems or concerns. She reports that she is tolerating a diet well without any difficulty and feels that she is drinking adequate fluids. All questions answered. Patient denies any fever, chills, cough, shortness of breath, chest pain, abdominal pain or nausea. Objective Vitals and Measurements T: 36.6 C (Oral) TMIN: 35.91 C TMAX: 36.8 C (Oral) HR: 84(Monitored) RR: 18 BP: 108/72 SpO2: 91% HT: 160 cm WT: 54 kg BMI: 21.09 Intake and Output 7AM Yesterday to 7AM Today Intake and Output (Last 24 hours) Intake Administration Information 578.39 Output Intra-Op EBL 20.00 Total Summary Total Intake 578.39 Total Output 20.00 Fluid Balance 558.39 Physical Exam General: No acute distress. Patient is alert and appropriate. Skin: No rash. Skin is warm, dry and intact. HEENT: Head is normocephalic and atraumatic. No lesions. Pupils equal in size. Extraocular movements within normal limits. Nose: No septal deviation. Mouth: Oropharynx mucosa is without lesion. Neck: Unable to assess due to C-collar in place. Lungs: Bilaterally clear breath sounds with no crepitation or wheeze. Unlabored. Cardiovascular: Heart is regular rhythm, S1S2. No extra-audible heart tones. Abdomen: Abdomen is soft, nontender. Bowel sounds positive all four quadrants. Extremities: No clubbing, cyanosis or edema. Peripheral pulses palpable. No calf tenderness. Adequate peripheral circulation. Neurological: The patient is awake, oriented to time, people and place. Following simple commands, moving all extremities. Weight Dosing Weight: 54 kg (09/06/21) Dosing Weight: 54 kg (09/06/21) Medications Medications (16) Active Scheduled: (7) busPIRone 5 mg Tablet 30 mg 6 tab(s), Oral, BID ceFAZolin 2 g, IV Piggyback, q8h loratadine 10 mg Tablet 10 mg 1 tab(s), Oral, qDay ondansetron 2 mg/ 1 mL 2 mL INJ 4 mg 2 mL, IV Push, q8h pantoprazole 20 mg EC tablet 20 mg 1 tab(s), Oral, qDayAC pramipexole 0.5 mg tablet 0.5 mg 1 tab(s), Oral, qHS venlafaxine 75 mg ER capsule 225 mg 3 cap(s), Oral, qDayM Continuous: (1) Lactated Ringers 1,000 mL 1,000 mL, Intravenous, 20 mL/hr PRN: (8) acetaminophen 325 mg Tablet 650 mg 2 tab(s), Oral, q4h acetaminophen-HYDROcodone 325-5 mg tablet 1 tab(s), Oral, q4h hydroxyzine hcl 10 mg Tablet 25 mg 2.5 tab(s), Oral, qHS meperidine 25 mg/mL 1 mL 25 mg 1 mL, IV Bolus, q3h morphine 4 mg/mL 1mL INJ 4 mg 1 mL, IV Push, q4h ondansetron 2 mg/ 1 mL 2 mL INJ 4 mg 2 mL, IV Push, q8h ondansetron 2 mg/ 1 mL 2 mL INJ 4 mg 2 mL, IV Push, AsDirected scopolamine 1.5 mg (1 mg / 72 hours patch) 1 patch(es), Transdermal, q72h Lab Results 09/07 05:28 WBC: 9.1 Hgb: 10.9 L Hct: 33.8 L Platelet: 235 Neutrophil %: 76.7 Glucose Level: 100 Sodium Level: 140 Potassium Level: 5.3 H BUN: 15 Creatinine Lvl (s): 0.75 Assessment/Plan 1. Rheumatoid arthritis 2. Fibromyalgia 3. Migraine 4. Depression 5. TIA 6. Cervical spondylosis 1. Rheumatoid arthritis Chronic. Continue current home medication. 2. Fibromyalgia Chronic, controlled. Not currently on medication for this. 3. Migraine Chronic, controlled. Continue Tylenol as needed for headache. 4. Depression Chronic, controlled. Continue Buspirone and Venlafaxine at current doses. 5. TIA Chronic, past history. Not currently on medication for this. 6. Cervical spondylosis Management per surgical service. DVT prophylaxis deferred to discretion of surgical service. Patient wishes to remain a Full Code. Patient remains stable this morning with stable vital signs and labs. Hospitalist service will sign-off now. Agree with plan to discharge patient home today. This case was discussed with collaborating physician, Dr. Jennifer Manrique. Time Spent 25 minutes. Digitally Signed by BELL FERGUSON on 09/07/2021 10:47 AM [facility] 09-06-2021 Note ORIGINAL Images acquired, not reported on this accession number. [facility] 09-06-2021 Note ORIGINAL Images acquired, not reported on this accession number. [facility] 09-06-2021 Anesthesiology Consult note Patient: SAMPSEL, REGIS A Age: 60 years Sex: Female : 1960 Associated Diagnoses: None Author: CASANDRA JONES APRN-APPRENTICE Preoperative Information Anesthesia history Patient's history: nausea and vomiting with anesthesia. Family's history: negative. Health Status Allergies: Allergic Reactions (Selected) Severity Not Documented Codeine- Stomach upset., Allergies (1) ActiveReaction codeineStomach upset Current medications: (Selected) Inpatient Medications Ordered Kefzol: 2 gram(s), 200 mL/hr, IV Piggyback, PREOP pharm NS 1,000 mL: 20 mL/hr, Intravenous, Stop: 09/06/21 23:59:00 EDT Documented Medications Documented Flexeril 10 mg oral tablet: 10 mg, 1 tab(s), Oral, TID, PRN: Muscle spasm for muscle spasm busPIRone 30 mg oral tablet: 30 mg, 1 tab(s), Oral, BID, 0 Refill(s) estradiol 0.5 mg oral tablet: 1 mg, 2 tab(s), Oral, Daily, 30 tab(s) loratadine 10 mg oral tablet: 10 mg, 1 tab(s), Oral, qDay, 30 tab(s), 0 Refill(s) pantoprazole 20 mg oral enteric coated tablet: 20 mg, 1 tab(s), Oral, qDayAC, 0 Refill(s) venlafaxine 75 mg oral capsule, extended release: 225 mg, 3 cap(s), Oral, qDayM, 0 Refill(s), Medications (2) Active Scheduled: (1) ceFAZolin 2 gram(s), IV Piggyback, PREOP pharm Continuous: (1) NS (0.9% nacl) 1,000 mL 1,000 mL, Intravenous, 20 mL/hr PRN: (0) Problem list: Medical Angina / SNOMED CT 277324804 / Confirmed Back pain / SNOMED CT 8621708631 / Confirmed Fibromyalgia / SNOMED CT [id number] / Confirmed Heart valve disorder / SNOMED CT 5505287 / Confirmed Hiatal hernia / SNOMED CT 961449538 / Confirmed Hyperlipidemia / SNOMED CT [id number] / Confirmed Migraine / SNOMED CT [id number] / Confirmed Peptic ulcer / SNOMED CT 33190011 / Confirmed Rheumatoid arthritis / SNOMED CT 715742319 / Confirmed SOB - Shortness of breath / SNOMED CT 976937254 / Confirmed TIA / SNOMED CT 313133235 / Confirmed, Active Problems (12) Angina Back pain Fibromyalgia Heart valve disorder Hiatal hernia Hyperlipidemia Migraine Peptic ulcer Rheumatoid arthritis Sciatica of left side SOB - Shortness of breath TIA Histories Past Medical History: Active SOB - Shortness of breath (873679459): Onset on 08/02/2012 at 51 years. Hiatal hernia (973688481) TIA (126958801) Rheumatoid arthritis (785068611) Back pain (4910747975) Comments: 05/23/2013 EDT 23:22 CECE Diaz implantation of pain stimulator in RLQ Fibromyalgia ([id number]) Heart valve disorder (8029856) Hyperlipidemia ([id number]) Migraine ([id number]) Family History: Diabetes mellitus Father Heart disease Mother Comments: 05/23/2013 23:20 CECE Diaz CABG Father Cancer Mother Comments: 05/23/2013 23:20 CECE Diaz from melanoma HTN - Hypertension Father Procedure history: History of total hysterectomy ([id number]) . Repair of diaphragmatic hiatal hernia by thoracoabdominal approach (47933480). H/O shoulder surgery ([id number]) . History of lumbar spine surgery (7029776389). Comments: 05/23/2013 23:17 EDT - Britton, RN Ethel L rods placed H/O cervical spine surgery ([id number]) . Comments: 05/23/2013 23:18 EDT - CECE Britton plates insertd Cardiac catheterization (18970889). Stimulator, device (8808749098). Comments: 03/30/2014 18:14 LETY - CECE Saini Pain stimulator Cholecystectomy (22109361). EGD - Esophagogastroduodenoscopy (9476976291). Social History Social & Psychosocial Habits Alcohol 08/17/2021 Use: Never Substance Abuse 08/17/2021 Use: Past Type: Methamphetamines Frequency: Daily Started at age: 48 Years Stopped at age: 50 Years Tobacco 08/17/2021 Tobacco Use: Former smoker, quit more Type: Cigarettes Number of years: 5 Stopped at age: 23 Years Home/Environment 08/17/2021 Domestic Concerns None Living situation: Home/Independent Primary Supervisor Wound: Self Current Home Treatments None Special Services and Community Resources None Spouse Name virginia Quintana Marital Status of Patient if Patient Independent Adult: Unmarried Nutrition/Health 08/17/2021 Type of diet: Regular Appetite Fair Eating Difficulties No teeth Skin Breakdown/Decubitus Ulcers No . Physical Examination Vital Signs 09/06/2021 6:13 EDT Temperature Temporal Artery 36.3 DegC Peripheral Pulse Rate 83 bpm Respiratory Rate 16 br/min Systolic Blood Pressure NBP 144 mmHg HI Diastolic Blood Pressure NBP 89 mmHg Vital Signs(last 24 hrs) Last Charted Resp Rate 16 br/min (SEP 06 06:13) SBPH 144mmHg (SEP 06 06:13) DBP89 mmHg (SEP 06 06:13) Measurements from flowsheet : Measurements 09/06/2021 6:13 EDT Height 160 cm Admission Weight 54 kg [place] Body Weight 52.38 kg Admission Body Mass Index 21.09 m2 Pain assessment: Pain Assessment 09/06/2021 6:13 EDT Primary Pain Location Generalized Primary Pain Intensity 9 Pain Scale Type 0-10 Pain scale . General: Alert and oriented, Mild distress. Airway: Normal temporomandibular joint mobility. Mallampati classification: II (soft palate, fauces, uvula visible). Dentition Evaluation: No teeth. Respiratory: Lungs are clear to auscultation, Respirations are non-labored. Cardiovascular: Normal rate, Regular rhythm. Heart Sounds: Normal. Musculoskeletal numbness left arm. Neurologic: Alert, Oriented. Review / Management Results review: No qualifying data available , Lab results 09/06/2021 6:49 EDT SN - Preop - CTm Pt in SDS Room 09/06/2021 6:02 SN - Preop - CTm Pt Ready for OR/Proced 09/06/2021 6:49 09/06/2021 6:48 EDT Hand Left 09/06/2021 20 gauge Peripheral IV Activity: Insert new site Peripheral IV Dressing Condition: Clean, Dry, Intact Peripheral IV Dressing Activity: Applied, Transparent dressing Peripheral IV Line Status/Patency: Continuous infusion Peripheral IV Line Care: Secured with tape Peripheral IV Site Condition: No complications Peripheral IV Equipment: Extension set, PRN Adaptor Peripheral IV Number of Attempts: 1 Sodium Chloride 0.9% Begin Bag 1,000 mL mL 09/06/2021 6:35 EDT Preop Nasal Swab Povidone-Iodine Anesthesia Consent Signed Yes 09/06/2021 6:20 EDT Individuals Taught Patient Learning Readiness Willing to learn Barriers to Learning None evident Teaching Method Explanation Preferred Written Language Kyrgyz Preferred Spoken Language Kyrgyz Pre Procedure/Surgery Education Appropriate expectations Procedure/Surgical Teaching Evaluation Verbalizes/Nonverbally indicates understanding 09/06/2021 6:19 EDT Additional Designated Person Share PHI Additional Designated Person Share PHI Infectious Disease Symptoms Patient states no symptoms Safety Brochure Information Reviewed Yes Kayli Ellsworth Video Viewed No Teaching Evaluation Verbalizes/Nonverbally indicates understanding Admission Note-Nursing Same Day Patient History (Modified) 09/06/2021 6:13 EDT Height 160 cm Admission Weight 54 kg [place] Body Weight 52.38 kg Admission Body Mass Index 21.09 m2 Temperature Temporal Artery 36.3 DegC Peripheral Pulse Rate 83 bpm Respiratory Rate 16 br/min Systolic Blood Pressure NBP 144 mmHg HI Diastolic Blood Pressure NBP 89 mmHg Primary Pain Location Generalized Primary Pain Intensity 9 Pain Scale Type 0-10 Pain scale Heart Rhythm Regular Dorsalis Pedis Pulse, Left 2+ Normal Dorsalis Pedis Pulse, Right 2+ Normal Radial Pulse, Left 2+ Normal Radial Pulse, Right 2+ Normal Edema Generalized None All Lobes Breath Sounds Clear Oxygen Therapy Room air Oxygen Saturation 100 % Abdomen Description Non-distended, Soft Abdomen Palpation Non-Tender Bowel Sounds All Quadrants Present Urinary Elimination Voiding, no difficulties Skin Symptoms Bruising Skin Temperature Warm Skin Description [place], Dry Skin Integrity Intact Neurological Symptoms Headache Extremity Movement Equal Characteristics of Speech Clear Level of Consciousness Alert Strength All Extremities Strong Tone All Extremities Normal Sensation All Extremities Intact Left Upper Extremity Sensation Numbness, Tingling Affect/Behavior Appropriate, Calm, Cooperative Orientation Oriented x 4 Allergies Yes Consent Form Signed Yes Patient Dressed In Hospital gown CHG Preoperative Wash/Wipe Night before procedure, Day of procedure CHG Skin Prep Completed for Eligible Surgery History & Physical On Chart Yes Activity Status ADL Awake, Resting NPO Status Maintained, More than 8 hours Standard Safety ID band on, Allergy Band on, Call device within reach, Bed in low position, Wheels locked, Upper/Half-Length side-rails up Allergy Band on and Verified Yes Patient ID Band on and Verified Yes Implants Verified Yes Pacemaker/AICD Verified Yes Blood Consent Signed Yes Last Fluid Intake 09/05/2021 22:00 Last Food Intake 09/05/2021 22:00 Last Void 09/06/2021 6:00 Patient Cleared for Surgery By KAREN CERNA APRN-COMPONENT ASSEMBLER 09/06/2021 6:04 EDT U TCA (AO) Negative U Cannab (AO) Negative U Lorena (AO) Negative U Methadone (AO) Negative U Michael (AO) Negative U Ampheta (AO) Negative Negative Urine Opiates (AO) Negative U PCP (AO) Negative . Assessment and Plan [employer] Anesthesiologists (ASA) physical status classification: Class III. Anesthetic Preoperative Plan Anesthetic technique: General. Maintenance airway: Oral endotracheal tube. Postoperative pain management: Per surgeon. Risks discussed: nausea, vomiting, sore throat, hypotension, allergic reaction, serious complications. Informed consent: signed by patient. Digitally Signed by CASANDRA JONES APRN-APPRENTICE on 09/06/2021 07:05 AM [facility] Evaluation + Plan note Future Appointments [facility] documented in this encounter [facility] course Narrative No data available for this section [facility] Hospital Discharge instructions No data available for this section [facility] Progress note No data available for this section [facility] Reason for referral (narrative)* Outpatient Procedure (Routine) - Authorized Specialty Diagnoses / Procedures Referred By Xavier t Referred To Contact [facility] Diagnoses Epigastric abdominal pain Procedures EGD DIAGNOSTIC ESOPHAGOGASTRODUODENOSC OPY TRANSORAL DIAGNOSTIC Nubia Tafoya MD [address] [place] [address] [facility] [address] [place] [address] Referral ID Status Reason Start Date Expiration Date Visits Requested Visits Authorized [id number] Authorized Auto-Generat ed Referral 06/13/2022 06/14/2023 1 1 [facility] Summary Purpose Family History No Family History Records FoundNo Family History Records FoundNo Family History Records FoundNo Family History Records FoundNo Family History Records FoundNo Family History Records Found Advance Directives No Advanced Directives Records FoundNo Advanced Directives Records FoundNo Advanced Directives Records FoundNo Advanced Directives Records FoundNo Advanced Directives Records FoundNo Advanced Directives Records Found Additional Source Comments INFORMATION SOURCE (unrecogn ized section and content) DATE CREATED AUTHOR AUTHOR'S ORGANIZ ATION 09/08/2021 [facility] DATE CREATED AUTHOR AUTHOR'S ORGANIZ ATION 06/18/2022 [facility] DATE CREATED AUTHOR AUTHOR'S ORGANIZ ATION 06/20/2022 [facility] DATE CREATED AUTHOR AUTHOR'S ORGANIZ ATION 12/10/2022 [facility] DATE CREATED AUTHOR AUTHOR'S ORGANIZ ATION 12/14/2022 [facility] Care Team (unrecognized sect ion and content) Care Team Personnel Name: KAREN CERNA APRN-COMPONENT ASSEMBLER Member Role: Primary Care Physician Address: Address: [address] [place] [address] [address] [place] [address]- Care Team Related Persons Name: OVIDIO CABRERA Address: Home [address] [place] [address] Care Team Personnel Name: NEHEMIAH, KAREN D WEB APPLICATIONS PROGRAMMER-COMPONENT ASSEMBLER Member Role: Primary Care Physician Address: Address: [facility] [facility] [address] [place] [address]- Care Team Related Persons Name: OVIDIO CABRERA Address: Home [address], [facility] Source Comments (unrecognize d section and content) In the event this informatio n is protected by the Federal Confidentiality of Alcohol and Drug Abuse Patient Records regulations: The Federal rules restrict any use of the information to criminally investigate or prosecute any alcohol or drug abuse patient.[facility] Reason for Visit (unrecogniz ed section and content) Care Teams (unrecognized sec tion and content) FOR RECORDS PERTAINING TO PATIENTS WHO ARE OR HAVE BEEN ENROLLED IN A CHEMICAL DEPENDENCY/SUBSTANCEABUSE PROGRAM, SOME INFORMATION MAY BE OMITTED. This clinical summary was aggregated from multiple sources. Caution should be exercised in using it in the provision of clinical care. This summary normalizes information from multiple sources, and as a consequence, information in this document may materially change the coding, format and clinical context of patient data. In addition, data may be omitted in some cases. CLINICAL DECISIONS SHOULD BE BASED ON THE PRIMARY CLINICAL RECORDS. [employer] [facility]. provides no warranty or guarantee of the accuracy or completeness of information in this document.
[2023-02-09 13:10] LABS: CREATININE FINGERSTICK 1.1 mg/dL (0.55-1.02)
== END | disposition home or self-care (01) ==
LOC: MRI 12:37
PROVIDERS: PCP Nurse Practitioner Family; Referring Provider Orthopaedic Surgery; Visit Provider Orthopaedic Surgery
DX: M51.36 Other intervertebral disc degeneration, lumbar region (principal); Z98.1 Arthrodesis status
CPT/HCPCS: 72158; A9575

== ENCOUNTER → 2023-04-04 | Outpatient (CLI) | payer MEDICARE, MEDICAID, SELFPAY ==
[2023-04-04 14:41] LABS: Amphetamine Urine VISTA NEGATIVE (<1000 ng/mL); Barbiturate Urine VISTA NEGATIVE (< 200 ng/mL); Benzodiazepine Urine VISTA NEGATIVE (< 200 ng/mL); Cocaine Urine VISTA NEGATIVE (< 300 ng/mL); Ecstacy Urine VISTA NEGATIVE (< 500 ng/mL); Methadone Urine VISTA NEGATIVE (< 300 ng/mL); PCP Urine VISTA NEGATIVE (< 25 ng/mL); THC Urine VISTA NEGATIVE (< 50 ng/mL); Vista UDS pH Range 7
== END | disposition home or self-care (01) ==
LOC: LAB 13:54
PROVIDERS: PCP Nurse Practitioner Family; Referring Provider Anesthesiology Pain Medicine; Visit Provider Anesthesiology Pain Medicine
DX: F11.20 Opioid dependence, uncomplicated (principal)
CPT/HCPCS: 80307

== ENCOUNTER → 2023-05-28 | Outpatient (CLI) | payer MEDICARE, MEDICAID, SELFPAY ==
--- NOTE | 2023-05-28 09:54 | MRI_ITS ---
HISTORY: pain. TECHNIQUE: Multiplanar and multisequence MR images of the cervical spine were obtained without contrast. 258 images. COMPARISON: XR 12/14/2015. FINDINGS: VERTEBRAE: Vertebral body heights maintained. Artifact from anterior spinal fusion hardware of C4-7. Mild degenerative bone marrow endplate changes of C6-7. VERTEBRAL ALIGNMENT: Straightening of the cervical lordosis without significant anterior or posterior subluxation. SPINAL CORD: Cervical cord signal and morphology within normal limits. SOFT TISSUES: No prevertebral fluid collection. INTERVERTEBRAL DISCS: C2-3: Mild disc bulge with facet arthropathy resulting in mild central canal stenosis. No significant foraminal narrowing. C3-4: Small degenerative osteophytes. No significant posterior disc protrusion, central canal stenosis, or foraminal narrowing. C4-5, C5-6: Interbody fusion material. No significant posterior disc protrusion, central canal stenosis, or foraminal narrowing. C6-7: Interbody fusion material. Degenerative and postoperative changes extending into the ventral epidural space with limited evaluation due to artifact from hardware. Mild central canal stenosis and bilateral foraminal narrowing. C7-T1: Very mild posterior disc protrusion resulting in minimal narrowing of the thecal sac and no significant foraminal narrowing. MRI/Spine Cervical (Routine) IMPRESSION: ACDF C4-7. Consider CT correlation for better assessment of the hardware. Mild degenerative changes above and below the level of fusion as above. Electronically Signed: Vannesa Mendez MD at 14:05 EDT ,
== END | disposition home or self-care (01) ==
LOC: MRI 09:34
PROVIDERS: PCP Nurse Practitioner Family; Referring Provider Orthopaedic Surgery Orthopaedic Surgery of the Spine; Visit Provider Orthopaedic Surgery Orthopaedic Surgery of the Spine
DX: G95.9 Disease of spinal cord, unspecified (principal)
CPT/HCPCS: 72141

== ENCOUNTER → 2023-06-21 | Outpatient (CLI) | payer MEDICARE, MEDICAID, SELFPAY ==
--- NOTE | 2023-06-21 10:49 | BD_ITS ---
STUDY: DUAL ENERGY X-RAY ABSORPTIOMETRY / DXA REASON FOR EXAM: Female, 62 years old. Pain TECHNIQUE: Bone Mineral Density (BMD) measurements of left forearm and bilateral hips were obtained. COMPARISON: None. FINDINGS: Left Femur Total: g/cm2 (0.572) / T-score (-3.0) / Z-score (-1.8) Left Femoral Neck: g/cm2 (0.461) / T-score (-3.5) / Z-score (-2.0) Right Femur Total: g/cm2 (0.572) / T-score (-3.0) / Z-score (-1.8) Right Femoral Neck: g/cm2 (0.461) / T-score (-3.5) / Z-score (-2.0) Left Forearm: g/cm2 (0.452) / T-score (-2.4) / Z-score (-0.8) BD/Dexa Bone Density Study IMPRESSION: The patient is considered osteoporotic as outlined below according to World [employer] Organization (WHO) criteria with a high fracture risk. Reference Information: The T-score is the number of standard deviations above or below the standard which is normal for young adults at their peak bone mineral density. The World Health Organization (WHO) interprets the T-scores as follows: Above -1 Normal bone density Between -1 and -2.5 Osteopenia Equal to / or below -2.5 Osteoporosis As a practical clinical guideline, osteopenia may be graded as follows: Mild -1 through -1.5 Moderate -1.6 through -2.0 Severe -2.1 through -2.4 The Z-score is the number of standard deviations above or below age-matched controls. A Z-score of less than -1.5 would be considered abnormal. References: 1. NIH Osteoporosis and Related Bone Diseases www osteo.org 2. International Society for Clinical Densitometry www iscd.org 3. National Osteoporosis Foundation www nof.org Electronically Signed: Errol Glover MD at 10:44 EDT ,
== END | disposition home or self-care (01) ==
LOC: OPBD 10:43
PROVIDERS: PCP Nurse Practitioner Family; Referring Provider Orthopaedic Surgery Orthopaedic Surgery of the Spine; Visit Provider Orthopaedic Surgery Orthopaedic Surgery of the Spine
DX: M81.0 Age-related osteoporosis without current pathological fracture (principal)
CPT/HCPCS: 77080

== ENCOUNTER 2024-02-07 14:02 | Inpatient (IN) | payer MEDICARE, MEDICAID, SELFPAY ==
[2024-01-25 11:26] LABS: Prothrombin Time (Protime)PT. 12.9 SECONDS (11.7-14.9)
[2024-01-25 11:27] LABS: Partial Thromboplast Time 25.3 Seconds (24.1-36.2)
[2024-01-25 11:38] LABS: Magnesium 2.5 mg/dL (1.6-2.6)
[2024-01-28 09:22] LABS: Hepatitis A AB, Total Negative (Negative)
[2024-01-28 23:09] LABS: HIV - WCH Non-Reactive (Nonreactive); Hepatitis B Surface Antibody Non-Reactive
[2024-01-28 23:16] LABS: Hepatitis C Antibody Reactive (Nonreactive)
[2024-02-07] VITALS (16 sets, daily range): BP systolic 99–150; BP diastolic 64–95; PULSE 67–111; RESP 16–18; TEMP 36.1–37; O2SAT 95–100; BMI 26.6
[2024-02-07] MEDS: 0.9% Normal Saline (1000mL) 1,000 ML 15 ML IV (06:27)
[2024-02-07] MEDS: Magnesium 1 GM over 15 mins IV (06:27)
[2024-02-07] MEDS: Acetaminophen 500 MG Tablet 1000 MG PO ×2 (06:28→20:30)
--- NOTE | 2024-02-07 06:39 | PRE.ANES_ITS ---
ASA Classification* ASA Classification ASA Classification: 2 Assessment & Plan Anesthesia* Anesthesia Assessment Anesthesia Assessment: Discussed sedation and/or anesthesia options, risks, benefits, and alternatives with patient/parents/legal guardian/POA. Questions invited. The patient/parents/legal guardian/POA seems to understand and agrees to proceed with anesthesia plan. Reviewed the physical assessment, medical history, allergy history and patient home medications list prior to surgery/procedure/anesthetic and documented any changes. Performed airway and anesthesia risk assessments. Anesthesia Type Anesthesia Type: General (NECK LROM) Anesthesia Focused Assessment* Temperature: 97.6 F Pulse Rate: 89 Blood Pressure: 121/78 Respiratory Rate: 18 Pulse Ox: 100 Airway Assessment Mouth opens: >3 cm Mallampati Score: II Focused Labs Anesthesia Preop lab: CBC WBC 3.7 K/mm3 (4.4-11.0) L 05/31/22 11:42 RBC 4.40 M/mm3 (4.2-5.4) 05/31/22 11:42 Hgb 11.2 g/dL (12.0-15.0) L 05/31/22 11:42 Hct 36.5 % (37-47) L 05/31/22 11:42 Plt Count 210 K/mm3 (150-450) 05/31/22 11:42 CHEMISTRY Potassium 3.7 mmol/L (3.5-5.1) 05/31/22 11:42 Sodium 137 mmol/L (136-145) 05/31/22 11:42 Magnesium 2.5 mg/dL (1.6-2.6) 01/25/24 10:38 BUN 13 mg/dL (7-18) 05/31/22 11:42 Creatinine 0.67 mg/dL (0.55-1.02) 05/31/22 11:42 Glucose 103 mg/dL (74-106) 05/31/22 11:42 TSH 1.57 uIU/mL (0.358-3.74) 05/31/22 11:42 COAG PT 12.9 SECONDS (11.7-14.9) 01/25/24 10:38 Pre-Assessment Diagnosis/Proposed Procedure Planned Operative Procedure(s): ANTERIOR AND REVISION POSTERIOR FUSION L1-2 L2-3 POSS CEMENT AUGMENTATION POSS REMOVAL OF PREVIOUS HARDWARE Anesthesia History 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 When Was Last Pacemaker Check QUESTION #4 FULL TEXT: You/Your Family Experience fever (hyperthermia) with Anesthesia Last Oral Intake Last Oral intake: Last Oral Intake NPO since 04:00 02/07/24 06:23 Meds taken in AM with sips of Yes 02/07/24 06:23 water? Meds patient instructed to buspar 02/07/24 06:23 take am of surgery PONV PONV - highway construction inspector: PONV - highway construction inspector Female Yes 01/17/24 13:05 HX of Motion Sickness No 01/17/24 13:05 HX of N/V After Surgery No 01/17/24 13:05 Non-Smoker Yes 01/17/24 13:05 Duration of Surgery greater Yes 01/17/24 13:05 than 60 minutes Number of Risk Factors 3 01/17/24 13:05 PONV Score Moderate Risk 01/17/24 13:05 Height & Weight Height & Weight: Anesthesia: Height & Weight Height 5 ft 2 in 02/07/24 06:23 Weight: 66 kg 02/07/24 06:23 Body Mass Index (BMI) 26.6 02/07/24 06:23 Respiratory Assessment Respiratory Assessment - highway construction inspector: Respiratory Tract Infection Hx - highway construction inspector Hx Respiratory Tract Infection No 01/17/24 13:05 STOP Sleep Apnea STOP Sleep Apnea - highway construction inspector: STOP Sleep Apnea - highway construction inspector Hx Hypertension No 01/17/24 13:05 Hx Sleep Apnea No 01/17/24 13:05 CPAP BIPAP Do you snore loudly (louder No 01/17/24 13:05 than talking or can be heard Do you often feel tired/ Yes 01/17/24 13:05 fatigued/ sleepy during daytime? Has anyone observed you stop No 01/17/24 13:05 breathing during sleep? STOP Results Negative 01/17/24 13:05 QUESTION #5 FULL TEXT : Do you snore loudly (louder than talking or can be heard through closed doors)? 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 Tobacco Use Smoking Status Former smoker 01/17/24 13:05 Hx Tobacco Use No 01/17/24 13:05 Years Smoking Packs Smoked per Day Smoking Cessation Date was No - quit smoking greater 01/17/24 13:05 within the last 15 years than 15 years ago Hx Smoking Cessation Date Hx Smoking Cessation No 01/17/24 13:05 Counseling Hematologic Medial History Hematologic Hx - highway construction inspector: Hematologic Medical Hx - educational administrator Hx of Blood Transfusion No 01/17/24 13:05 Hx of Transfusion in last 3 No 01/17/24 13:05 Months Date of Last Transfusion (if within last 3 months) Ever experience any problems No 01/17/24 13:05 with transfusion(s)? Specify any problems Hx of Preganancy in last 3 No 01/17/24 13:05 Months Nurse Filling Out Transfusion DSCHRIBER 01/17/24 13:05 & Questions: Date: 01/17/24 01/17/24 13:05 Time: 13:06 01/17/24 13:05 Patient unable to answer at this time (ie. confused, unrespo /Reproduction History /Reproductive History - highway construction inspector: /Reproductive Hx- highway construction inspector Hx Now No 01/17/24 13:05 Gestational Age (in weeks): EDC: Hx Hx Para Hx Section SAB No 01/17/24 13:05 Active Medications Active Medications: Current Medications Generic Name Dose Route Start Last Admin Trade Name Freq PRN Reason Stop Dose Admin Acetaminophen 1,000 mg 02/07/24 07:30 02/07/24 06:28 Acetaminophen 500 Mg Tablet PO 02/07/24 07:31 1,000 mg X1 ONE Administration Cefazolin Sodium 2 gm/ N/A 20 mls @ 400 mls/hr 02/07/24 07:30 IV 02/07/24 07:32 PREOP ONE Tranexamic Acid 1,000 mg/ 110 mls @ 660 mls/hr 02/07/24 07:30 Sodium Chloride IV 02/07/24 07:39 X1 ONE Tranexamic Acid 1,000 mg/ 110 mls @ 660 mls/hr 02/07/24 07:30 Sodium Chloride IV 02/07/24 07:39 X1 ONE Magnesium Sulfate 1 gm/ 102 mls @ 408 mls/hr 02/07/24 07:30 02/07/24 06:27 Dextrose IV 02/07/24 07:44 408 mls/hr X1 ONE Administration Sodium Chloride 1,000 mls @ 15 mls/hr 02/07/24 05:45 02/07/24 06:27 IV 02/12/24 19:04 15 mls/hr .Q48H NASIMA Administration Protocol Insulin Human Lispro 1 - 6 unit 02/07/24 07:30 Insulin Lispro 100 Unit/Ml Insuln.Pen SC 02/07/24 18:00 Q4H PRN PRN BG>/= 180, SEE PROTOCOL Protocol PFSH Medical History Post-menopausal Alcohol use History of hiatal hernia Leg cramps Arthrosis of left acromioclavicular joint Tendonitis of left rotator cuff Closed left clavicular fracture Left shoulder pain Wears hearing aid Wears glasses Complete edentulism, class III Depression Anxiety Arthritis DVT (deep venous thrombosis) Easy bruising Restless legs Injury of back Migraine headache Injury of head and neck TIA (transient ischemic attack) Syncope History of ulceration Gastric reflux Former smoker Shortness of breath on exertion History of pain when walking Cardiology follow-up encounter History of echocardiogram History of stress test Ganglion of flexor tendon sheath of right little finger Ganglion, tendon sheath History of CVA (cerebrovascular accident) Home Medications ?Medication ?Instructions ?Recorded ?Last Taken ?Type buspirone 30 mg tablet 30 mg PO BID DEPRESSION/ANXIETY 12/26/21 02/07/24 History pantoprazole 20 mg tablet,delayed 20 mg PO DAILY GERD 12/26/21 02/06/24 History release pramipexole 0.5 mg tablet 0.5 mg PO QHS RLS 03/22/22 02/06/24 History cetirizine 10 mg tablet 10 mg PO QDAY ALLERGIES 09/17/23 02/06/24 History cholecalciferol (vitamin D3) 50 50 mcg PO QDAY SUPPLEMENT 09/17/23 02/06/24 History mcg (2,000 unit) capsule ferrous sulfate 325 mg (65 mg 325 mg PO QDAY SUPPLEMENT 09/17/23 02/06/24 History iron) tablet (FeroSul) pregabalin 50 mg capsule 50 mg PO TID LEG PAIN 09/17/23 02/06/24 History quetiapine 50 mg tablet 50 mg PO QHS ANXIETY 09/17/23 02/06/24 History ropinirole 1 mg tablet 1 - 2 mg PO QHS RLS 09/17/23 02/06/24 History abaloparatide (Tymlos) 80 mcg (0.04 mL) subcut DAILY BONE 10/04/23 02/05/24 Rx HEALTH #4.68 mL pen needle, diabetic 32 gauge x #100 ea 10/12/23 Unknown Rx (BD Ultra-Fine Wendi Pen Needle) Allergy/AdvReac Type Severity Reaction Status Date / Time No Known Allergies Allergy Verified 02/07/24 06:19 Family History Father Hypertension Heart disease CVA (cerebral vascular accident) Mother Myocardial infarction Sister Thyroid cancer Surgical History Hx of gastrostomy Hx of arthroscopy of shoulder History of dermoid cyst excision History of exploratory laparotomy History of arthroscopy of right shoulder Hx of cholecystectomy Hx of hysterectomy History of lumbar spinal fusion Hx of cervical spine surgery Social History Smoking Status: Former smoker quit date: 02/12/79 pack-years: 10 Electronic Cigarette Use: not used second hand exposure: No alcohol intake: never substance use type: former substance user Date of last use: Quit 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
[2024-02-07 06:50] LABS: Bedside Glucose 114 mg/dL (74-106)
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
[2024-02-07] MEDS: Cefazolin 2 GM in Syringe IV ×2 (07:44→16:36)
[2024-02-07] MEDS: TXA 1000mg in NS100 100ml (IVPB at Incision) 660 MG IV (07:45)
--- NOTE | 2024-02-07 07:50 | RAD_ITS ---
STUDY: X-RAY - LUMBAR SPINE REASON FOR EXAM: Female, 63 years old. FUSION L1-2 AND L2-3 TECHNIQUE: 2 view(s) of the lumbar spine were obtained. COMPARISON: 05/17/2023 FINDINGS: 245 seconds of fluoroscopy of the lumbar spine was utilized operating room during discectomy, interbody fusion, and transpedicular fixation and 26 images are cemented for interpretation. . RAD/Lumbar Spine 2 or 3 Views IMPRESSION: Fluoroscopy during discectomy, interbody fusion, and transpedicular fixation. Electronically Signed: Jose M Hill MD at 16:08 EST ,
[2024-02-07] MEDS: TXA 1000mg in NS100 100ml (IVPB at Closure) 660 MG IV (13:19)
[2024-02-07] MEDS: Ropivacaine 0.5% 30 ML Vial (13:30)
--- NOTE | 2024-02-07 13:56 | PCM.OPRPT ---
Procedures Musculoskeletal 20xxx-29xxx: Other Procedure See Report Operative Report (Standard) Operative Information Date of Procedure: 02/07/24 Pre-Operative Diagnosis: L1-2, L2-3, disc degeneration Kyphosis, Scoliosis, Prior L3-S1 Fusion Post-Operative Diagnosis: Same Surgery/Procedure Performed: L1-2, L2-3 oblique lumbar interbody fusion dynamo repairer: Yes Security Business Analyst: Liam Bucio Tasks completed by preschool assistant: Opening & closing, Dissecting tissue, Hemostasis: Electrocautery, Retracting and Other ([id number] surgery-access) Additional patient care nursing assistant?: Yes Additional Hem Marker #2: Lucie Truong Tasks completed by patient care nursing assistant #2: Closing, Removing tissue, Hemostasis: Electrocautery and Retracting Type of Anesthesia: General RN Documented Start/Stop Times: Operation Date: 02/07/24 07:30 Case Time Into Pre-Op 02/07/24 05:39 Out of Pre-Op 02/07/24 07:35 Anesthesia Start 02/07/24 07:44 Into Room 02/07/24 07:44 Procedure Start 02/07/24 08:25 Procedure End 02/07/24 13:53 Procedure Start Time: 08:25 Procedure Stop Time: 13:53 Select all DRAINS/GRAFTS/IMPLANTS that apply: Graft Graft details: [employer] infuse BMP sponge, allograft cancellous bone chips, DBX and Implanted device Implanted device details: DePuy cougar lateral lumbar interbody cage?peek Estimated Blood Loss: 100 cc Specimen collected: No Description of surgery: Preoperative diagnosis: L1-2, L2-3 disc degeneration, kyphosis, Scoliosis, Prior L3-S1 Fusion Postoperative diagnosis: Same Name of procedures L1-2, L2-3 oblique lumbar interbody fusion (OLIF), minimally invasive right sided approach, lateral decubitus: ? L1-2 anterolateral spinal fusion 31718 ? L2-3 anterolateral fusion 35031/51 ? L1-2 insertion of cage 26769 ? L2-3 insertion of cage 07660/51 ? Bone graft aspirate left iliac crest separate incision ? Allograft cancellous chips Attending Surgeon: Dr. Cm Foster Co-surgeon: Dr. Liam Bucio Estimated blood loss: 100 mL Anesthesia: General Complications: None Indications: Patient is a 63-year-old pleasant lady who has had a long history of low back pain and left lower extremity radiation, difficulty standing for long period of time. Xrays & MRI revealed prior L3-S1 stable fusion with adjacent segment degeneration at L1-2 and L2-3, with scoliosis and kyphosis due to severe disc height loss at these levels. After undergoing a prolonged period of nonoperative treatment, the patient elected to undergo surgical decompression & fusion. All surgical options were discussed with the patient including anterior and posterior approaches. All risks and benefits associated with the procedure were explained to the patient. The risks include but are not limited to infection, bleeding, injury to nerves and vessels including major vessels like IVC and aorta, persistent paresthesia, persistent pain, dural tear, need for further procedures, adjacent segment degeneration, pseudoarthrosis, hardware failure, retrograde ejaculation, paralytic ileus, etc. Procedure: The patient was identified in the preoperative holding suite using Unique patient identifiers. Skin was marked, consent was reviewed, and all questions were answered. The patient was then brought back to the operative room. A surgical timeout was performed to make sure correct procedure was being done on the correct patient and all operative room staff were on the same page. General endotracheal anesthesia was then given to the patient. Danielle catheter was inserted. The patient was then carefully positioned in left lateral decubitus position with the right side up on a regular OR table. Axillary roll was placed and all bony prominences were well- padded. Hip positioners were placed in the posterior buttocks and anterior sternal area. The surgical area was prepped and draped in usual fashion. Preoperative antibiotic was injected IV as preoperative antibiotic. A final timeout was then again done just before starting the procedure. A 2 inch incision oblique was taken in the right lower quadrant of the abdomen 2 fingerbreadths away from the iliac crest and the lower ribs. Sharp dissection with Bovie was carried out up to the fascia covering the external oblique. The external oblique, internal oblique and transversus abdominis muscles were split along the muscle fibers and retroperitoneal space was entered. Sponge sticks were utilized to move the bowel and peritoneum sac-qk-kqd-way and psoas muscle was exposed staying within the retroperitoneal plane. Spacenet retractor system was positioned and the retractor blade was applied onto the psoas. The interval between psoas and midline structures was developed and appropriate retractors were placed. Once adequate interval was cleared, a disc space was identified and a marker x-ray was taken. This identified the L2-3 disc level. The prepsoas interval was then traced superiorly. Right sera of diaphragm was identified and retracted anteriorly to expose the L1-2 level. Annulotomy was done with a long handled knife. Pituitary was used to remove disc material. Curettes were used to prepare the endplates. Disc space spreaders were utilized to distract and increase the disc height. Near complete discectomy was performed. Trials of serially increasing sizes were used. A Jamshidi needle was used to aspirate bone marrow from the left anterior iliac crest through a separate incision and this aspirate was mixed with the allograft bone chips. A Depuy [place] cage of size of the 18 x 45 x 12 mm with 15 degrees lordosis was packed with corticocancellous allograft bone chips mixed with bone marrow aspirate. This was inserted into the L1-2 disc space. The retractors were then repositioned to expose the L2-3 disc and the procedure was repeated with complete discectomy and endplate preparation. Smaller disc distractors were also used to bluntly perform a contralateral annulotomy at both levels. Cage size was 18 x 45 x 12 mm at L2-3. AP and lateral C-arm pictures were taken to confirm good position of the cage. Some bone chips were also packed around the cages. Screw with washer was placed into the lower L1 and L2 body with a washer partially covering the cage at L1-2 and L2-3 respectively. Hemostasis was confirmed. The retractor blades were removed. Closure was done in layers with a continuous strand of # 1 Vicryl in all muscle layers. 2-0 Vicryl was used for subcutaneous tissue and 4-0 for Monocryl for the skin. Steri-Strips were applied and 4 x 4 gauze and Tegaderm were applied. Hem Marker Lucie Truong PA-C. My physician patient care nursing assistant was a vital part of this case. They were important in appropriate retraction during the case, and protection of soft tissues during the procedure. Their intimate knowledge of the case and my steps aided in safe and expedient completion of the procedure as well as appropriate position of the patient during the surgery. They were also vital in assisting with closure under my direct supervision. Surgical Findings: See operative note Complications Complications: No
--- NOTE | 2024-02-07 14:07 | OP.PCM_ITS ---
Procedures Musculoskeletal 20xxx-29xxx: Other Procedure See Report Operative Report (Standard) Operative Information Date of Procedure: 02/07/24 Pre-Operative Diagnosis: L1-2, L2-3 disc degeneration, scoliosis, kyphosis, prior L3-S1 fusion Post-Operative Diagnosis: Same Surgery/Procedure Performed: L1-3 posterior spinal instrumented fusion, removal of previous hardware, cement augmentation alarm security or surveillance monitor: Yes Livestock Rancher: Lucie Truong Tasks completed by dam tender assistant: Closing, Removing tissue, Hemostasis: Electrocautery and Retracting Type of Anesthesia: General RN Documented Start/Stop Times: Operation Date: 02/07/24 07:30 Case Time Into Pre-Op 02/07/24 05:39 Out of Pre-Op 02/07/24 07:35 Anesthesia Start 02/07/24 07:44 Into Room 02/07/24 07:44 Procedure Start 02/07/24 08:25 Procedure End 02/07/24 13:53 Procedure Start Time: 08:25 Procedure Stop Time: 13:53 Select all DRAINS/GRAFTS/IMPLANTS that apply: Graft Graft details: Allograft cancellous bone chips, DBX and Implanted device Implanted device details: Catapulter prime pedicle screw instrumentation, spine wave offset connector Estimated Blood Loss: 100 cc Specimen collected: No Description of surgery: Preoperative diagnosis: L1-2, L2-3 disc degeneration, scoliosis, kyphosis, prior L3-S1 fusion Postoperative diagnosis: Same Name of procedures: L1-3 posterior percutaneous pedicle screw instrumented fusion,, removal of previous hardware, prone: ? L1-2 posterior spinal fusion 86638 ? L1-3 posterior pedicle screw instrumentation 09786 ? L2-3 posterior fusion 12218/51 -L3 left pedicle screw posterior removal and reinsertion of instrumentation 05579 -L3-4 posterior exploration of fusion 34877 ? Allograft cancellous chips 36418 Attending Surgeon: Dr. Cm Foster Estimated blood loss: 100 mL (total for entire case) Anesthesia: General Complications: None Description of procedure: After the anterior procedure was complete, the patient was then turned supine. The patient was then transferred to Walter table in prone position. Back was prepped and draped in usual fashion. C-arm AP view was then taken. C-arm was positioned in a way that L1 was centralized and superior endplate of was parallel to the beam. Spinous process was centered between the pedicles. Midline was marked with skin marker and lateral borders of the pedicles were also marked. Skin marker was also utilized to jayy transversely across the middle of the pedicles at L1. 2 transverse paramedian incisions of 1 inch were placed. The fascia was incised vertically. Finger dissection was utilized to palpate the transverse process and facet joint. Viper Prime screws with towers were inserted and docked onto the transverse processes. This was then slowly moved medially to reach the superior articular process of L1. This was then confirmed on C-arm and then a mallet was utilized to drive the trocar into the pedicle going up to the medial wall of the pedicle on AP view. This was performed both sides. C-arm lateral view confirmed that the tip of the trocar was in the vertebral body, and the screw was advanced into the pedicle and vertebral body. This was repeated similarly at L2 bilaterally. Screw sizes were 7 x 50 mm at L1 and L2 bilaterally. Serial dilators were then used to expose the L3 screw on the right along with the carmen beneath it. The carmen between L3 and L4 was exposed. L3-4 fusion was explored and found to be adequate. The length of the carmen between L3 and L4 screws were adequate enough to use an offset connector. The carmen between L3 and L4 was cleared to be able to pass this connector. Serial dilators were then used to expose the L3 screw on the left along with a carmen beneath it. The carmen between L3 and L4 was exposed. L3-4 fusion was explored and found to be adequate. Length of the carmen between L3 and L4 was not found to be adequate enough for the offset connector. Decision was then made to use carmen cutting bur to cut the carmen between L3 and L4. Thorough irrigation was done to washout any metal dust. L3 pedicle screw along with the portion of the carmen within it was then removed using the helicopter technique. Guidewire was passed into the L3 pedicle channel and a larger Viper prime 7 x 50 mm screw was passed into the L3 pedicle channel and confirmed on AP lateral x-rays. Due to the reduced purchase at L1 screws, decision was made to augment the pedicle screws with cement augmentation. Using the Tongtecher system, cement was injected through the cannula of the screws at L1 and L2 bilaterally and L3 on the left. AP and lateral fluoroscopy confirmed good positioning of the cement without any significant extravasation. 75 mm straight titanium 5.5 mm carmen was then contoured with slight kyphosis at the top and was passed into the left L1-3 pedicle screws. Compression was achieved at the L1-3 pedicle screws on the left using the DePuy Viper system, as this was the convexity of the curve. Final tightening was done of all screws on the left. On the right, and offset connector with 75 mm length carmen was then cut and contoured with slight kyphosis at the top. This was passed percutaneously into the L2 and L3 screws on the right, and the offset connector was directed towards the carmen between the previous L3 and L4 screws on the right. The offset connector was then under fluoroscopy rotated to engage with the carmen. Setscrews were placed and L1 and L2 as well as over the offset connector. All setscrews were final tightened using torque screw cryogenic transport driver. AP and lateral view of the C-arm showed good positioning of the screws and cages. Final tightening with the torque screwdriver was then completed. Butler was utilized to roughen the facet joint at L1-2 and L2-3 on the left side. Cancellous allograft bone chips mixed with bone marrow aspirate were then placed over this decorticated area. Hemostasis was achieved. Closure was done in layers with 0 Vicryls for the fascia, 2-0 Vicryls for the subcutaneous tissue, and Monocryl for the skin. Dermabond was applied. Dressings were applied covered with Tegaderm. The patient was then turned supine onto a hospital bed. The patient was extubated and taken to PACU in stable condition. The patient tolerated the procedure well and no complications occurred. Depuy [place] cage & Viper Prime minimally invasive pedicle screw instrumentation system was utilized in this case. No dural tear was identified intraoperatively. I was present for the entirety of the case and performed the surgery. Surgical Findings: See operative note Complications Complications: No
--- NOTE | 2024-02-07 14:09 | PCM.POST.ANE ---
Anesthesia: Postop Eval I Current Vital Signs Temperature: 97 F Pulse Rate: 78 Blood Pressure: 117/64 Respiratory Rate: 16 Pulse Ox: 100 Oxygen Delivery Method: Room Air Assessment Airway patent: Yes Spontaneous unlabored respirations: Yes Mental status: Awake and Calm nausea: No Vomiting: No Anesthesia Complication: No Fluid Hydration Crystalloid volume administer (ml): 1,600 Total IV fluid infused: 1,600 Progress Note Anesthesia document: Postop Eval 1 completed: Yes
--- NOTE | 2024-02-07 14:40 | OP.PCM_ITS ---
Operative Report (Standard) Operative Information Date of Procedure: 02/07/24 Pre-Operative Diagnosis: L1-2, L2-3 disc degeneration, scoliosis, kyphosis, prior L3-S1 fusion Post-Operative Diagnosis: Same Surgery/Procedure Performed: L1-2, L2-3 oblique lumbar interbody fusion (OLIF), minimally invasive right sided approach, lateral decubitus: ? L1-2 anterolateral spinal fusion 17288 ? L2-3 anterolateral fusion 95936/51 ? L1-2 insertion of cage 29878 ? L2-3 insertion of cage 45276/51 ? Bone graft aspirate left iliac crest separate incision ? Allograft cancellous chips aoc plans intelligence officer chief: Yes Print Binding Worker: Lucie Truong Tasks completed by heel sprayer first: Opening, Closing, Opening & closing and Retracting Type of Anesthesia: General RN Documented Start/Stop Times: Operation Date: 02/07/24 07:30 Case Time Into Pre-Op 02/07/24 05:39 Out of Pre-Op 02/07/24 07:35 Anesthesia Start 02/07/24 07:44 Into Room 02/07/24 07:44 Procedure Start 02/07/24 08:25 Procedure End 02/07/24 13:53 Anesthesia End 02/07/24 14:05 Out of Room 02/07/24 14:05 Into Recovery 02/07/24 14:08 Procedure Start Time: 08:00 Procedure Stop Time: 11:00 Select all DRAINS/GRAFTS/IMPLANTS that apply: Graft Graft details: [employer] infuse BMP sponge, allograft cancellous bone chips, DBX and Implanted device Implanted device details: DePuy cougar lateral lumbar interbody cage?peek Estimated Blood Loss: 100 Specimen collected: No Description of surgery: HPI: Patient is a 63-year-old female with degenerative disc disease and scoliosis evaluated by Dr. Foster for oblique interbody lumbar fusion L1 1 L2, L2-L3. Vascular surgery services are requested for exposure. Description of procedure: Upon obtaining form consent and verification correct patient procedure site patient was taken to the operating where she was placed under general anesthesia. She was then positioned prepped and draped in usual sterile fashion a time was performed. Oblique incision was made overlying the planned vertebral body positions. Bovie electrocautery was dissect down through subcutaneous tissue and hand-held retractors put in position. Further dissection carried down level the fascia. The fascia was incised and the muscle split following the orientation of the fibers. Hand-held retractors moved deeper in the wound and at a lower position to avoid violating the pleura the internal oblique and transversalis muscles were split and self-retaining retractors moved deeper in the wound entering into the retroperitoneal space. Blunt dissection was then carried down to the psoas and surrounding tissue mobilized to create working space. The Syn frame self-retaining retractors then put into position and blades placed to provide exposure of the lateral aspect of the vertebral bodies. Bovie and blunt dissection was then used to dissect down to the L2-L3 vertebral body which was then marked for future intervention. Dissection was then carried up to the L1-L2 vertebral body at which point Dr. Foster performed the discectomy and placement of implant which she will dictate in further detail. Next we then turned our attention back to the L2-L3 disc space Dr. Foster performed the discectomy and implant placement which she will describe in his dictation. Retroperitoneal space was then inspected hemostasis and self-retaining retractors removed along the abdominal contents to return to their [place] position. The muscle layers of the abdominal wall were then closed individually with running 1-0 Vicryl. Superficial wound was then irrigated and then the skin closed with 3-0 Vicryl and 4-0 Monocryl. The patient then repositioned for posterior approach with Dr. Foster will dictate separately Surgical Findings: See above Complications Complications: No
--- NOTE | 2024-02-07 14:41 | POSTOPAN2_ITS ---
Anesthesia Postop Eval I Sum Postop Eval Completion status Anesthesia document: Postop Eval 1 completed: Yes Anesthesia Postop Eval I Summary Anesthesia Postop Eval I Summary: Anesthesia Postop Eval I: Assessment Summary Airway patent Yes 02/07/24 14:11 LINE ERECTOR APPRENTICE.[email or web address] Spontaneous unlabored Yes 02/07/24 14:11 LINE ERECTOR APPRENTICE.GDOTT respirations Mental status Awake,Calm 02/07/24 14:11 LINE ERECTOR APPRENTICE.GDOTT nausea No 02/07/24 14:11 LINE ERECTOR APPRENTICE.GDOTT Vomiting No 02/07/24 14:11 LINE ERECTOR APPRENTICE.GDOTT Anesthesia Postop Eval I: Fluid Summary Crystalloid volume administer 1,600 02/07/24 14:11 LINE ERECTOR APPRENTICE.GDOTT (ml) Colloids volume administered ( ml) Blood Product volume administered (ml) Total IV fluid infused 1,600 02/07/24 14:11 LINE ERECTOR APPRENTICE.GDOTT Anesthesia Postop Eval I: Summary Notes Anesthesia Complication No 02/07/24 14:11 LINE ERECTOR APPRENTICE.GDOTT Anesthesia Complication Comment: Post-operative progress note Anesthesia: Postop Eval II Evaluation Mental status: Awake and Calm Pain Level: 2 nausea: No Vomiting: No Complications Anesthesia Complication: No
--- NOTE | 2024-02-07 14:41 | PCM.POSTANE2 ---
Anesthesia Postop Eval I Sum Postop Eval Completion status Anesthesia document: Postop Eval 1 completed: Yes Anesthesia Postop Eval I Summary Anesthesia Postop Eval I Summary: Anesthesia Postop Eval I: Assessment Summary Airway patent Yes 02/07/24 14:11 CONTENT MANAGEMENT CONSULTANT.GDOTT Spontaneous unlabored Yes 02/07/24 14:11 CONTENT MANAGEMENT CONSULTANT.GDOTT respirations Mental status Awake,Calm 02/07/24 14:11 CONTENT MANAGEMENT CONSULTANT.GDOTT nausea No 02/07/24 14:11 CONTENT MANAGEMENT CONSULTANT.GDOTT Vomiting No 02/07/24 14:11 CONTENT MANAGEMENT CONSULTANT.GDOTT Anesthesia Postop Eval I: Fluid Summary Crystalloid volume administer 1,600 02/07/24 14:11 CONTENT MANAGEMENT CONSULTANT.GDOTT (ml) Colloids volume administered ( ml) Blood Product volume administered (ml) Total IV fluid infused 1,600 02/07/24 14:11 CONTENT MANAGEMENT CONSULTANT.GDOTT Anesthesia Postop Eval I: Summary Notes Anesthesia Complication No 02/07/24 14:11 CONTENT MANAGEMENT CONSULTANT.GDOTT Anesthesia Complication Comment: Post-operative progress note Anesthesia: Postop Eval II Evaluation Mental status: Awake and Calm Pain Level: 2 nausea: No Vomiting: No Complications Anesthesia Complication: No
--- NOTE | 2024-02-07 15:00 | PN.HOSP_ITS ---
Reason for Visit Reason for Visit: Diagnoses Encounter for other preprocedural examination (02/07/24) Subjective Subjective Patient with significant chronic lumbar back pain status post previous L3-S1 fusion with ongoing outpatient lumbar injections unfortunately not successful with L1-2, L2-3 disc degeneration kyphosis and scoliosis failed as noted outpatient interventions now status post L1-3 posterior spinal instrumented fusion, removal of previous hardware, cement augmentation with Dr. Foster and Dr. Bucio assist seen in PACU. Patient notes ongoing lumbar back discomfort postoperatively rating pain 6-7 out of 10 in severity in addition to persistent nausea despite recent Zofran antiemetic therapy. Patient denies fevers, chills, emesis, abdominal pain, chest pain or dyspnea. Objective Data Objective Data Vital Signs: Vital Signs Temp Pulse Resp BP Pulse Ox O2 Del Method O2 Flow Rate 97 F L 72 16 115/95 H 100 Nasal Cannula 4 02/07/24 14:11 02/07/24 14:45 02/07/24 14:45 02/07/24 14:45 02/07/24 14:45 02/07/24 14:45 02/07/24 14:45 Oxygen Flow Rate (L/min) 4 Oxygen Delivery Method Nasal Cannula Weight: 145 lb 8.081 oz Body Mass Index (BMI) 26.6 Intake & Output: Intake and Output for Last 24 Hours 02/05/24 02/06/24 02/07/24 23:59 23:59 23:59 Intake Total 240 / 240 Output Total 80 / 80 Balance 160 / 160 Lab / Micro Data Labs: Laboratory Results - last 24 hr 02/07/24 06:18: POC Glucose 114 H 02/07/24 06:32: Blood Type O NEGATIVE, Antibody Screen NEGATIVE Micro: Microbiology 01/25/24 10:42 Swab (Method) Nasal Screen MRSA/MSSA - Final Physical Exam Narrative Physical Examination: General: Awake, alert, although still sedated and does close her eyes but will open them when you encourage her, oriented to self, place and recent events, still fatigued with anesthetic recently administered, remains cooperative, following commands, seated upright in PACU, notes ongoing lumbar back pain and nausea. Skin: Normal color, normal turgor, no icterus, no cyanosis except for occasional stage ecchymoses, abrasion, recent OR with dressings in place with no drainage. HEENT: AT/NC, EOMI, PERRLA, dry MM. Lungs: Diminished, greater bases, appropriate effort, no rales, ronchi or wheez ing. Heart: Regular rate and rhythm; no gallop, rub audible. Abdomen: Soft, NTTP, ND, mildly hyperactive BS, no appreciated HSM. Extremities: No cyanosis, no clubbing, mild trace ankle bilateral edema. Neurological: Awake, alert, although still sedated and does close her eyes but will open them when you encourage her, oriented to self, place and recent events, still fatigued with anesthetic recently administered, remains cooperative, following commands, seated upright in PACU, notes ongoing lumbar back pain and nausea, cognitive function baseline intact; pupils equally reactive to light and accommodation, cranial nerves grossly normal, moving all 4 extremities but still debilitated given recent operative intervention in the spine, strength severely globally decreased. Psychiatric: Affect appears fatigued, uncomfortable, no acute evidence of depressive or anxiety feelings. Assessment & Plan Assessment/Plan (1) Lumbar back pain: PLAN: Plan The patient is a 63 y/o F w/ PMHx: Chronic anemia/Fe deficiency anemia, Hx TIA/CVA, RLS, Anxiety and Depression, Chronic migraines, Hx VTE, Former tobacco use, chronic lumbar back pain despite outpatient injections with L1-2, L2-3 disc degeneration kyphosis, scoliosis with previous L3-S1 fusion. #1. Debility, Chronic lumbar back pain despite outpatient injections with L1-2, L2-3 disc degeneration kyphosis, scoliosis with previous L3-S1 fusion: Failed conservative therapies and treatments, admitted per Dr. Foster, s/p 02/07/24 L1- 2, L2-3 lumbar interbody fusion with minimally invasive right side approach, lateral decubitus with vascular surgery assist Dr. Huerta, post-operative pain management, bowel regimen, DVT Prophylaxis, PT/OT/CM per Orthopedic-spine surgery discretion. #2. Chronic anemia/iron deficiency: Most recent CBC noted in the with hemoglobin at that time 11.2, MCV 83, previous to this 04/10/2022 hemoglobin 10.7 and prior to this primarily 12-13 range, CBC will be obtained in AM to further elucidate current trends, continue iron supplementation. #3. Anxiety and depression: We will continue patient home BuSpar as well as Seroquel home regimen, encourage continued outpatient follow-up and evaluation for regimen adjustments as needed/counseling. #4. History TIA/CVA: Noted in chart history, per current list does not appear to be on any antiplatelet therapy, would recommend baby aspirin once surgery amenable, not on statin or hypertensive regimen, BP currently normal range but recent operative intervention with sedation. Will continue to monitor and if appropriate will add regimen otherwise will need early and ongoing outpatient follow-up. #5. Restless leg syndrome: We will continue patient home pramipexole regimen. #6. Allergic rhinitis: We will continue patient home cetirizine regimen. #7. History of VTE: Patient not chronically anticoagulated, DVT prophylaxis initiation per surgery discretion given recent intervention as noted. #8. Former tobacco use: Encourage continued tobacco cessation. #9. GERD: We will continue patient on PPI. #10. DVT prophylaxis: SCDs, chemoprophylaxis per surgery discretion given recent intervention. Charges/Coding Visit Charges Inpatient E&M: 56544 Subs Hosp L3
[2024-02-07] MEDS: Methocarbamol 500 MG Tablet 1000 MG PO ×2 (17:30→20:29)
[2024-02-07] MEDS: Ondansetron 4 MG/2 ML Vial IV (20:00)
[2024-02-07] MEDS: Ketorolac 15 MG/ML Vial IV (20:12)
[2024-02-07] MEDS: Pramipexole Di-HCl 0.5 MG Tablet PO (20:30)
[2024-02-07] MEDS: QUEtiapine 25 MG Tablet 50 MG PO (20:30)
[2024-02-07] MEDS: busPIRone 15 MG TABLET 30 MG PO (20:31)
[2024-02-07] MEDS: Senna/Docusate Sodium 1 Tablet 2 TABLET PO (20:31)
[2024-02-07] MEDS: Pregabalin 50 MG Capsule PO (20:33)
[2024-02-07] MEDS: oxyCODONE 5 MG Tablet PO (21:32)
[2024-02-07] MEDS: proMETHazine 25 MG/ML Syringe 12.5 MG IM (22:24)
[2024-02-08] MEDS: Cefazolin 2 GM in Syringe IV (00:01)
[2024-02-08] MEDS: 0.9% Saline Lock 10 ML Syringe IV ×2 (00:01→10:33)
[2024-02-08] MEDS: Morphine 4 MG/ML Syringe IV ×2 (00:01→10:33)
[2024-02-08] MEDS: oxyCODONE 5 MG Tablet PO ×3 (03:11→13:04)
[2024-02-08 03:55] VITALS: BP 142/72; PULSE 110; RESP 16; TEMP 37.1; O2SAT 97
[2024-02-08] MEDS: Ondansetron 4 MG/2 ML Vial IV (04:00)
[2024-02-08 04:52] LABS: Hematocrit 34.1 % (37-47); Hemoglobin 11.1 g/dL (12.0-15.0); Mean Corp Hgb Conc 32.6 g/dL (32-36); Mean Corpuscular Hgb 26.1 pg (27.0-32.0); Mean Corpuscular Volume 80.2 fL (81-99); Mean Platelet Vol. 11.5 fl (6.2-12.0); Platelet Count 208 K/mm3 (150-450); RBC Distribution Width CV 15.2 % (11.6-14.6); RBC Distribution Width SD 43.6 fl (35.1-43.9); Red Blood Count 4.25 M/mm3 (4.2-5.4); White Blood Count 11.4 K/mm3 (4.4-11.0)
[2024-02-08] MEDS: Pregabalin 50 MG Capsule PO (05:09)
[2024-02-08] MEDS: Acetaminophen 500 MG Tablet 1000 MG PO ×2 (05:09→13:06)
[2024-02-08 05:13] LABS: Anion Gap 4 (5-15); BUN 29 mg/dL (7-18); BUN/Creat Ratio 30.1 RATIO (10-20); Chloride 114 mmol/L (98-107); Creatinine, Serum 0.96 mg/dL (0.55-1.02); EST Glomerular Filtration Rate 62 mL/min (>60); Est Glom Filt Rate - Afr Amer 75 mL/min (>60); Estimated Creatinine Clearance 52.07 ml/min; Glucose 163 mg/dL (74-106); Potassium 4.1 mmol/L (3.5-5.1); Sodium Level 140 mmol/L (136-145)
[2024-02-08] MEDS: proMETHazine 25 MG/ML Syringe 12.5 MG IM (05:14)
--- NOTE | 2024-02-08 06:47 | PN.HOSP_ITS ---
Reason for Visit Reason for Visit: Diagnoses Low back pain, unspecified (02/07/24) Encounter for other preprocedural examination (02/07/24) Subjective Subjective Patient with no acute events overnight per self and per nursing report. She notes ongoing aching discomfort but she states this is manageable and she has been up and moving without assistance with walker only. Also witnessed patient moving in the hallways with therapies and she was doing extremely well. Therapies feel she is appropriate for discharge to home with ongoing assistive devices which patient reports having and therapies outpatient. Patient denies fevers, chills, nausea, emesis, abdominal pain, chest pain or dyspnea. Objective Data Objective Data Vital Signs: Vital Signs Temp Pulse Resp BP Pulse Ox O2 Del Method O2 Flow Rate 98.7 F 110 H 16 142/72 H 97 Room Air 4 02/08/24 03:55 02/08/24 03:55 02/08/24 03:55 02/08/24 03:55 02/08/24 03:55 02/08/24 03:55 02/07/24 16:11 Oxygen Flow Rate (L/min) 4 Oxygen Delivery Method Room Air Weight: 145 lb 8.081 oz Body Mass Index (BMI) 26.6 Intake & Output: Intake and Output for Last 24 Hours 02/06/24 02/07/24 02/08/24 23:59 23:59 23:59 Intake Total 412 / 612 733.75 / 733.75 Output Total 80 / 80 Balance 332 / 532 733.75 / 733.75 Lab / Micro Data 02/08/24 04:26 02/08/24 04:26 Labs: Laboratory Results - last 24 hr 02/07/24 06:18: POC Glucose 114 H 02/07/24 06:32: Blood Type O NEGATIVE, Antibody Screen NEGATIVE 02/08/24 04:26: WBC 11.4 H, RBC 4.25, Hgb 11.1 L, Hct 34.1 L, MCV 80.2 L, MCH 26.1 L, MCHC 32.6, RDW Std Deviation 43.6, RDW Coeff of Haley 15.2 H, Plt Count 208, MPV 11.5, Sodium 140, Potassium 4.1, Chloride 114 H, Carbon Dioxide 22.0, A nion Gap 4 L, BUN 29 H, Creatinine 0.96, Estim Creat Clear Calc 52.07, Est GFR (MDRD) Af Amer 75, Est GFR (MDRD) Non-Af 62, BUN/Creatinine Ratio 30.1 H, G lucose 163 H, Calcium 8.0 L Micro: Microbiology 01/25/24 10:42 Swab (Method) Nasal Screen MRSA/MSSA - Final Radiography Diagnostic Testing: Radiology Impression Lumbar Spine X-Ray 02/07/24 07:50 IMPRESSION: Fluoroscopy during discectomy, interbody fusion, and transpedicular fixation. Electronically Signed: Jose M Hill MD at 16:08 EST , Physical Exam Narrative Physical Examination: General: Awake, alert, oriented x 3 and cooperative, walking the halls with therapies, notes she is in pain but it is manageable and she is eager for discharge to home Skin: Normal color, normal turgor, no icterus, no cyanosis except for recent OR with dressing in place without drainage and occasional abrasion including to the face just beneath the nare which is visible. HEENT: AT/NC, EOMI, PERRLA, MMM. Lungs: Mildly diminished, greater bases, appropriate effort no rales, ronchi or wheezing. Heart: Mildly tachycardic with rate rhythm; no gallop, rub audible. Abdomen: Soft, NTTP, ND, normal BS Extremities: No cyanosis, no clubbing, mild trace bilateral ankle edema Neurological: Patient awake, alert, oriented as, cognitive function intact; pupils equally reactive to light and accommodation, cranial nerves gross normal, moving all 4 extremities, strength improving, moderately globally decreased given recent OR. Psychiatric: Affect appears fatigued otherwise normal, no acute evidence of depressive or anxiety feelings. Assessment & Plan Assessment/Plan (1) Lumbar back pain: PLAN: Plan The patient is a 63 y/o F w/ PMHx: Chronic anemia/Fe deficiency anemia, Hx TIA/CVA, RLS, Anxiety and Depression, Chronic migraines, Hx VTE, Former tobacco use, chronic lumbar back pain despite outpatient injections with L1-2, L2-3 disc degeneration kyphosis, scoliosis with previous L3-S1 fusion. #1. Debility, Chronic lumbar back pain despite outpatient injections with L1-2, L2-3 disc degeneration kyphosis, scoliosis with previous L3-S1 fusion: Failed conservative therapies and treatments, admitted per Dr. Foster, s/p 02/07/24 L1- 2, L2-3 lumbar interbody fusion with minimally invasive right side approach, lateral decubitus with vascular surgery assist Dr. Huerta, post-operative pain management, bowel regimen, DVT Prophylaxis, PT/OT/CM per Orthopedic-spine surgery discretion. 02/08/2024 significant activity with assistive device with therapies with only standby with discussion with therapies with likely plan to return to home with outpatient therapies. Medical service amenable to patient discharge to home with ongoing therapies at surgery service discretion. #2. Chronic anemia/iron deficiency: Most recent CBC noted in the with hemoglobin at that time 11.2, MCV 83, previous to this 04/10/2022 hemoglobin 10.7 and prior to this primarily 12-13 range, 02/08/24 Hgb 11.1, continue to trend, continue iron supplementation. #3. Anxiety and depression: We will continue patient home BuSpar as well as Seroquel home regimen, encourage continued outpatient follow-up and evaluation for regimen adjustments as needed/counseling. #4. History TIA/CVA: Noted in chart history, per current list does not appear to be on any antiplatelet therapy, would recommend baby aspirin once surgery amenable, not on statin or hypertensive regimen, BP currently normal range but recent operative intervention with sedation. Will continue to monitor and if appropriate will add regimen otherwise will need early and ongoing outpatient follow-up. #5. Restless leg syndrome: We will continue patient home pramipexole regimen. #6. Allergic rhinitis: We will continue patient home cetirizine regimen. #7. History of VTE: Patient not chronically anticoagulated, DVT prophylaxis initiation per surgery discretion given recent intervention as noted. #8. Former tobacco use: Encourage continued tobacco cessation. #9. GERD: We will continue patient on PPI. #10. DVT prophylaxis: SCDs, chemoprophylaxis per surgery discretion given recent intervention. Charges/Coding Visit Charges Inpatient E&M: 75685 Subs Hosp L2
--- NOTE | 2024-02-08 07:00 | RAD_ITS ---
STUDY: X-RAY - LUMBAR SPINE REASON FOR EXAM: Female, 63 years old. s/p lumbar fusion -- please do upright AP and LAT TECHNIQUE: 2 view(s) of the lumbar spine were obtained. COMPARISON: 04/09/2023 FINDINGS: Normal lumbar lordosis. There is no substantial scoliosis. Interval discectomy, interbody fusion, transpedicular fixation in the upper lumbar spine with anatomic alignment. Status post transpedicular fixation lower lumbar spine which is unchanged. Normal vertebral bodies and endplates. Normal disc space heights. The soft tissue structures are unremarkable. RAD/Lumbar Spine 2 or 3 Views IMPRESSION: Interval discectomy, interbody fusion, transpedicular fixation in the upper lumbar spine. Electronically Signed: Jose M Hill MD at 8:33 EST ,
[2024-02-08 10:00] VITALS: BP 145/86; PULSE 96; RESP 19; TEMP 36.6; O2SAT 93
--- NOTE | 2024-02-08 10:14 | CASEMGMT ---
CECE DIETZ Assessment Face to Face with patient for initial transition planning/care coordination assessment. CECE DIETZ introduced self and role at [facility], pt voices understanding. Pt is A&Ox4 and is resting comfortably in bed and is calm. Care providers, pharmacy, and demographics verified. 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 States OP Hx through [facility] Pt?s goal: Home with OP Tx Plan: Home with OP Tx. Pt states that her neighbor can drive her home today. Pt did well with therapy, see note. Pt plans to f/u with Orthopaedics in 2 weeks and then plans to attend OP Tx through [facility]. Pt educated that OP therapy will be established at the f/u appt and states understanding. Pt states that she feels safe going home with the help of her son and neighbor and denies further concerns at this time. Report given to MS3 CECE DIETZ. Marquise Patterson RN, CM
[2024-02-08] MEDS: Loratadine 10 MG Tablet PO (10:24)
[2024-02-08] MEDS: Pantoprazole Sodium 20 MG Tablet PO (10:24)
[2024-02-08] MEDS: Methocarbamol 500 MG Tablet 1000 MG PO ×2 (10:24→13:06)
[2024-02-08] MEDS: busPIRone 15 MG TABLET 30 MG PO (10:25)
[2024-02-08] MEDS: Meloxicam 15 MG Tablet PO (10:25)
--- NOTE | 2024-02-08 12:37 | PN.ORTHO_ITS ---
Subjective Subjective Seen with Dr. Foster. Patient is POD 1 L1-3 fusion and revision. She is doing relatively well postoperatively with her pain well-controlled. Says that she had some nausea earlier in the day however that has currently resolved. She has passed flatus and has progressed to a solid diet which has been well-tolerated. Patient has a friend who is able to help her out at home. Patient has walked with therapy and did about 75 feet. Ready for discharge home. Objective Data Objective Data Vital Signs: Vital Signs Temp Pulse Resp BP Pulse Ox O2 Del Method O2 Flow Rate 97.8 F 96 19 H 145/86 H 93 Room Air 4 02/08/24 10:00 02/08/24 10:00 02/08/24 10:00 02/08/24 10:00 02/08/24 10:00 02/08/24 10:00 02/07/24 16:11 Oxygen Flow Rate (L/min) 4 Oxygen Delivery Method Room Air Weight: 145 lb 8.081 oz Body Mass Index (BMI) 26.6 Intake & Output: Intake and Output for Last 24 Hours 02/06/24 02/07/24 02/08/24 23:59 23:59 23:59 Intake Total 412 / 612 1033.75 / 1033.75 Output Total 80 / 80 Balance 332 / 532 1033.75 / 1033.75 Lab / Micro Data 02/08/24 04:26 02/08/24 04:26 Labs: Laboratory Results - last 24 hr 02/08/24 04:26: WBC 11.4 H, RBC 4.25, Hgb 11.1 L, Hct 34.1 L, MCV 80.2 L, MCH 26.1 L, MCHC 32.6, RDW Std Deviation 43.6, RDW Coeff of Haley 15.2 H, Plt Count 208, MPV 11.5, Sodium 140, Potassium 4.1, Chloride 114 H, Carbon Dioxide 22.0, A nion Gap 4 L, BUN 29 H, Creatinine 0.96, Estim Creat Clear Calc 52.07, Est GFR (MDRD) Af Amer 75, Est GFR (MDRD) Non-Af 62, BUN/Creatinine Ratio 30.1 H, G lucose 163 H, Calcium 8.0 L Micro: Microbiology 01/25/24 10:42 Swab (Method) Nasal Screen MRSA/MSSA - Final Radiography Diagnostic Testing: Radiology Impression Lumbar Spine X-Ray 02/07/24 07:50 IMPRESSION: Fluoroscopy during discectomy, interbody fusion, and transpedicular fixation. Electronically Signed: Jose M Hill MD at 16:08 EST , Lumbar Spine X-Ray 02/08/24 07:00 IMPRESSION: Interval discectomy, interbody fusion, transpedicular fixation in the upper lumbar spine. Electronically Signed: Jose M Hill MD at 8:33 EST , Physical Exam Narrative Neurological exam of the lower extremity shows 5X5 power. Normal sensation across all dermatomes. Patient with Tegaderm and gauze intact over belly and back incisions. Const alert, oriented x3 and no apparent distress Assessment & Plan Assessment/Plan (1) Status post lumbar spinal fusion: PLAN: Plan Obtained x-rays today look good. Patient ready for discharge home. Discharge medications include acetaminophen, meloxicam, methocarbamol, oxycodone, senna. Reviewed precautions of no bending, lifting, twisting. Patient had not used the incentive spirometer while she has been here, encouraged her to use it while in bed and to take at home with her. Patient demonstrated proper use of the device. She will follow-up in the clinic in 2 weeks.
== END 2024-02-08 14:00 | disposition home or self-care (01) | DRG 427 ==
PROVIDERS: Anesthesiology; Student in an Organized Health Care Education/Training Program; Admitting Provider Orthopaedic Surgery Orthopaedic Surgery of the Spine; PCP Nurse Practitioner Family; Referring Provider Orthopaedic Surgery Orthopaedic Surgery of the Spine; Visit Provider Orthopaedic Surgery Orthopaedic Surgery of the Spine
PROC: 0SG10A0 Fusion of 2 or more Lumbar Vertebral Joints with Interbody Fusion Device, Anterior Approach, Anterior Column, Open Approach (ICD-10-PCS; principal; 2024-02-07 07:00)
DX: M51.362 Other intervertebral disc degeneration, lumbar region with discogenic back pain and lower extremity pain (principal); G95.9 Disease of spinal cord, unspecified; D50.9 Iron deficiency anemia, unspecified; G25.81 Restless legs syndrome; F32.A Depression, unspecified; G43.709 Chronic migraine without aura, not intractable, without status migrainosus; M40.209 Unspecified kyphosis, site unspecified; M47.9 Spondylosis, unspecified; J30.9 Allergic rhinitis, unspecified; K21.9 Gastro-esophageal reflux disease without esophagitis; F41.9 Anxiety disorder, unspecified; M81.0 Age-related osteoporosis without current pathological fracture; Z98.1 Arthrodesis status; G89.29 Other chronic pain; R53.81 Other malaise; Z79.1 Long term (current) use of non-steroidal anti-inflammatories (NSAID); Z79.899 Other long term (current) drug therapy; Z87.891 Personal history of nicotine dependence; Z86.73 Personal history of transient ischemic attack (TIA), and cerebral infarction without residual deficits
CPT/HCPCS: 36415; 72100; 76000; 80048; 82962; 83735; 85027; 85610; 85730; 86703; 86706; 86708; 86803; 86850; 86900; 86901; 87077; 87081; 97162; A4648; C1713; A4216; J2405; J3475

== ENCOUNTER → 2024-09-12 | Outpatient (CLI) | payer MEDICARE, MEDICAID, SELFPAY ==
--- NOTE | 2024-09-12 15:53 | MRI_ITS ---
PROCEDURE: UPPER EXT JOINT ONLY(ROUTINE) 09/12/2024 REASON FOR EXAM: PAIN, EVAL FOR RTC TEAR TECHNIQUE: MRI of the left shoulder without contrast. Multiplanar and multisequence images were obtained without IV contrast administration. COMPARISON: COMPARISON: Left shoulder MRI 01/18/2023. FINDINGS: Bone and bone Marrow: [id number] left acromioclavicular joint degenerative changes are seen. Minimal left glenohumeral joint degenerative changes are noted. No acute osseous signal changes are seen Effusion: No joint effusion is seen. Moderate supraspinatus tendinosis is seen, with mild infraspinatus tendinosis noted. No tendon retraction is seen. Soft Tissues: No abnormal muscle signal is seen. No free or loculated fluid collection is noted. Ligaments and Tendons: The long head of the biceps tendon appears intact. No glenoid labral tear is identified, on this noncontrasted examination.. MRI/Upper Ext Joint Only(Routine) IMPRESSION: 1. Degenerative changes as described. 2. Moderate supraspinatus and mild infraspinatus tendinosis. Reading Location: [place] [id number]
== END | disposition home or self-care (01) ==
LOC: MRI 15:51
PROVIDERS: PCP Nurse Practitioner Family; Referring Provider Orthopaedic Surgery Sports Medicine; Visit Provider Orthopaedic Surgery Sports Medicine
DX: M75.102 Unspecified rotator cuff tear or rupture of left shoulder, not specified as traumatic (principal)
CPT/HCPCS: 73221

== ENCOUNTER 2024-10-29 07:54 | Day surgery (SDC) | payer MEDICARE, MEDICAID, SELFPAY ==
--- NOTE | 2024-10-23 09:44 | PAT.ANESEVAL ---
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 When Was Last Pacemaker Check QUESTION #4 FULL TEXT: You/Your Family Experience fever (hyperthermia) with Anesthesia Last Oral Intake Last Oral intake: Last Oral Intake NPO since Meds taken in AM with sips of water? 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 Female Yes 10/20/24 10:35 HX of Motion Sickness No 10/20/24 10:35 HX of N/V After Surgery No 10/20/24 10:35 Non-Smoker Yes 10/20/24 10:35 Duration of Surgery greater Yes 10/20/24 10:35 than 60 minutes Number of Risk Factors 3 10/20/24 10:35 PONV Score Moderate Risk 10/20/24 10:35 Height & Weight Height & Weight: Anesthesia: Height & Weight Height 5 ft 2 in 09/25/24 07:57 Respiratory Assessment Respiratory Assessment - tire shop manager: Respiratory Tract Infection Hx - tire shop manager Hx Respiratory Tract Infection No 10/20/24 10:35 STOP Sleep Apnea STOP Sleep Apnea - tire shop manager: STOP Sleep Apnea - tire shop manager Hx Hypertension No 10/20/24 10:35 Hx Sleep Apnea No 10/20/24 10:35 CPAP BIPAP Do you snore loudly (louder No 10/20/24 10:35 than talking or can be heard Do you often feel tired/ No 10/20/24 10:35 fatigued/ sleepy during daytime? Has anyone observed you stop No 10/20/24 10:35 breathing during sleep? STOP Results Negative 10/20/24 10:35 QUESTION #5 FULL TEXT : Do you snore loudly (louder than talking or can be heard through closed doors)? 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 Specify any problems Hx of Preganancy in last 3 No 10/20/24 10:35 Months Nurse Filling Out Transfusion DSCHRIBER 10/20/24 10:35 & Questions: Date: 10/20/24 10/20/24 10:35 Time: 10:37 10/20/24 10:35 Patient unable to answer at this time (ie. confused, unrespo /Reproduction History /Reproductive History - tire shop manager: /Reproductive Hx- tire shop manager Hx Now No 10/20/24 10:35 Gestational Age (in weeks): EDC: Hx Hx Para Hx Section SAB No 10/20/24 10:35 [facility] Medical History (Updated 10/20/24 @ 10:41 by Sravanthi Paulino) Low iron Back pain Left rotator cuff tear Post-menopausal Alcohol use History of hiatal hernia Leg cramps Arthrosis of left acromioclavicular joint Tendonitis of left rotator cuff Closed left clavicular fracture Left shoulder pain Wears hearing aid Wears glasses Complete edentulism, class III Depression Anxiety Arthritis DVT (deep venous thrombosis) Restless legs Injury of back Migraine headache Injury of head and neck TIA (transient ischemic attack) Syncope History of ulceration Gastric reflux Former smoker Shortness of breath on exertion History of pain when walking Cardiology follow-up encounter History of echocardiogram History of stress test Ganglion of flexor tendon sheath of right little finger Ganglion, tendon sheath History of CVA (cerebrovascular accident) Home Medications ?Medication ?Instructions ?Recorded ?Last Taken ?Type buspirone 30 mg tablet 30 mg PO BID DEPRESSION/ANXIETY 12/26/21 02/07/24 History pantoprazole 20 mg tablet,delayed 20 mg PO DAILY GERD 12/26/21 02/06/24 History release pramipexole 0.5 mg tablet 0.5 mg PO QHS RLS 03/22/22 02/06/24 History cetirizine 10 mg tablet 10 mg PO QDAY ALLERGIES 09/17/23 02/06/24 History cholecalciferol (vitamin D3) 50 50 mcg PO QDAY SUPPLEMENT 09/17/23 02/06/24 History mcg (2,000 unit) capsule ferrous sulfate 325 mg (65 mg 325 mg PO QDAY SUPPLEMENT 09/17/23 02/06/24 History iron) tablet (FeroSul) ropinirole 1 mg tablet 1 - 2 mg PO QHS RLS 09/17/23 02/06/24 History pen needle, diabetic 32 gauge x #100 ea 10/12/23 Unknown Rx 5/32 (BD Ultra-Fine Wendi Pen Needle) meloxicam 15 mg tablet 15 mg PO DAILY #30 tabs 02/08/24 Unknown Rx abaloparatide (Tymlos) 80 mcg (0.04 mL) subcut DAILY BONE 09/12/24 Unknown Rx HEALTH #4.68 mL pregabalin 75 mg capsule (Lyrica) 75 mg PO TID 10/20/24 Unknown History quetiapine 50 mg tablet 50 mg PO BID 10/20/24 Unknown History Allergy/AdvReac Type Severity Reaction Status Date / Time No Known Allergies Allergy Verified 10/20/24 14:23 Family History Father Hypertension Heart disease CVA (cerebral vascular accident) Mother Myocardial infarction Sister Thyroid cancer Surgical History (Updated 10/20/24 @ 10:41 by Sravanthi Paulino) History of lumbar fusion Hx of gastrostomy Hx of arthroscopy of shoulder History of dermoid cyst excision History of exploratory laparotomy History of arthroscopy of right shoulder Hx of cholecystectomy Hx of hysterectomy History of lumbar spinal fusion Hx of cervical spine surgery Social History Smoking Status: Former smoker quit date: 02/12/79 pack-years: 10 Electronic Cigarette Use: not used second hand exposure: No alcohol intake: never substance use type: former substance user Date of last use: Quit 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, Used 4 Audit: Pertinent Findings Pertinent Findings EKG Perinent findings: April 10, 2022. Sinus rhythm with short CA. Recommendation Anesthesia Recommendation Anesthesia recommendation: OPTIMIZED for anesthesia
[2024-10-29] VITALS (11 sets, daily range): BP systolic 123–139; BP diastolic 70–85; PULSE 76–87; RESP 16–18; TEMP 36.1–36.5; O2SAT 92–99; BMI 25.7
[2024-10-29] MEDS: Lactated Ringers 1,000 ML 15 ML IV (08:36)
--- NOTE | 2024-10-29 08:51 | PRE.ANES_ITS ---
ASA Classification* ASA Classification ASA Classification: 3 Assessment & Plan Anesthesia* Anesthesia Assessment Anesthesia Assessment: Discussed sedation and/or anesthesia options, risks, benefits, and alternatives with patient/parents/legal guardian/POA. Questions invited. The patient/parents/legal guardian/POA seems to understand and agrees to proceed with anesthesia plan. Reviewed the physical assessment, medical history, allergy history and patient home medications list prior to surgery/procedure/anesthetic and documented any changes. Performed airway and anesthesia risk assessments. Anesthesia Type Anesthesia Type: General and Block History Source History Obtained from:: Patient and Chart Anesthesia Focused Assessment* Temperature: 97.7 F Pulse Rate: 76 Blood Pressure: 139/84 Respiratory Rate: 18 Pulse Ox: 97 Oxygen Delivery Method: Room Air Airway Assessment Mouth opens: >3 cm Mallampati Score: II Teeth Condition: Dentures (Edentulous) Neck Range of motion (ROM): Limited ROM Labs Anesthesia Preop lab: CBC WBC, (4.4-11.0) 11.4 K/mm3 H 02/08/24, 04:26 RBC, (4.2-5.4) 4.25 M/mm3 02/08/24, 04:26 Hgb, (12.0-15.0) 11.1 g/dL L 02/08/24, 04:26 Hct, (37-47) 34.1 % L 02/08/24, 04:26 Plt Count, (150-450) 208 K/mm3 02/08/24, 04:26 CHEMISTRY Potassium, (3.5-5.1) 4.1 mmol/L 02/08/24, 04:26 Sodium, (136-145) 140 mmol/L 02/08/24, 04:26 Magnesium, (1.6-2.6) 2.5 mg/dL 01/25/24, 10:38 BUN, (7-18) 29 mg/dL H 02/08/24, 04:26 Creatinine, (0.55-1.02) 0.96 mg/dL 02/08/24, 04:26 Glucose, (74-106) 163 mg/dL H 02/08/24, 04:26 POC Glucose, (74-106) 114 mg/dL H 02/07/24, 06:18 TSH, (0.358-3.74) 1.57 uIU/mL 05/31/22, 11:42 COAG PT, (11.7-14.9) 12.9 SECONDS 01/25/24, 10:38 Pre-Assessment Diagnosis/Proposed Procedure Planned Operative Procedure(s): LEFT SHOULDER ARTHROSCOPY SUBCROMIAL DECOMPRESSION DEBRIDEMENT RTC REPAIR Anesthesia History 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 When Was Last Pacemaker Check QUESTION #4 FULL TEXT: You/Your Family Experience fever (hyperthermia) with Anesthesia Last Oral Intake Last Oral intake: Last Oral Intake NPO since 22:00 10/29/24 08:26 Meds taken in AM with sips of Yes 10/29/24 08:26 water? 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 Female Yes 10/20/24 10:35 HX of Motion Sickness No 10/20/24 10:35 HX of N/V After Surgery No 10/20/24 10:35 Non-Smoker Yes 10/20/24 10:35 Duration of Surgery greater Yes 10/20/24 10:35 than 60 minutes Number of Risk Factors 3 10/20/24 10:35 PONV Score Moderate Risk 10/20/24 10:35 Height & Weight Height & Weight: Anesthesia: Height & Weight Height 5 ft 3 in 10/29/24 08:26 Weight: 66 kg 10/29/24 08:26 Body Mass Index (BMI) 25.7 10/29/24 08:26 Respiratory Assessment Respiratory Assessment - underground mine superintendent: Respiratory Tract Infection Hx - 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 Has anyone observed you stop No 10/20/24 10:35 breathing during sleep? STOP Results Negative 10/20/24 10:35 QUESTION #5 FULL TEXT : Do you snore loudly (louder than talking or can be heard through closed doors)? 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 Specify any problems Hx of Preganancy in last 3 No 10/20/24 10:35 Months Nurse Filling Out Transfusion DSCHRIBER 10/20/24 10:35 & Questions: Date: 10/20/24 10/20/24 10:35 Time: 10:37 10/20/24 10:35 Patient unable to answer at this time (ie. 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: /Reproductive Hx- underground mine superintendent Hx Now No 10/20/24 10:35 Gestational Age (in weeks): EDC: Hx Hx Para Hx Section SAB No 10/20/24 10:35 Active Medications Active Medications: Current Medications Generic Name Dose Route Start Last Admin Trade Name Freq PRN Reason Stop Dose Admin Cefazolin Sodium 2 gm/ Sodium 110 mls @ 200 mls/hr 10/29/24 10:00 Chloride IV 10/29/24 10:32 INTRAOP ONE Lactated Ringer's 1,000 mls @ 15 mls/hr 10/29/24 08:15 10/29/24 08:36 IV 15 mls/hr .Q48H NASIMA Administration PFSH Medical History Low iron Back pain Left rotator cuff tear Post-menopausal Alcohol use History of hiatal hernia Leg cramps Arthrosis of left acromioclavicular joint Tendonitis of left rotator cuff Closed left clavicular fracture Left shoulder pain Wears hearing aid Wears glasses Complete edentulism, class III Depression Anxiety Arthritis DVT (deep venous thrombosis) Restless legs Injury of back Migraine headache Injury of head and neck TIA (transient ischemic attack) Syncope History of ulceration Gastric reflux Former smoker Shortness of breath on exertion History of pain when walking Cardiology follow-up encounter History of echocardiogram History of stress test Ganglion of flexor tendon sheath of right little finger Ganglion, tendon sheath History of CVA (cerebrovascular accident) Home Medications ?Medication ?Instructions ?Recorded ?Last Taken ?Type buspirone 30 mg tablet 30 mg PO BID DEPRESSION/ANXI ETY 12/26/21 10/29/24 History pantoprazole 20 mg tablet,delayed 20 mg PO DAILY GERD 12/26/21 10/28/24 History release pramipexole 0.5 mg tablet 0.5 mg PO QHS RLS 03/22/22 0 10/28/24 History cetirizine 10 mg tablet 10 mg PO QDAY ALLERGIES 07/0510/28/24 History cholecalciferol (vitamin D3) 50 50 mcg PO QDAY SUPPLEM ENT 09/17/23 10/28/24 History mcg (2,000 unit) capsule ferrous sulfate 325 mg (65 mg 325 mg PO QDAY SUPPLEMEN T 09/17/23 10/28/24 History iron) tablet (FeroSul) ropinirole 1 mg tablet 1 - 2 mg PO QHS RLS 09/17/23 10/28/24 History pen needle, diabetic 32 gauge x #100 ea 10/12/23 Unkno wn Rx (BD Ultra-Fine Wendi Pen Needle) meloxicam 15 mg tablet 15 mg PO DAILY #30 tabs 01/1310/28/24 Rx abaloparatide (Tymlos) 80 mcg (0.04 mL) subcut JANA Y BONE 09/12/24 10/28/24 Rx HEALTH #4.68 mL pregabalin 75 mg capsule (Lyrica) 75 mg PO TID 5 10/29/24 History quetiapine 50 mg tablet 50 mg PO BID 10/20/24 History Allergy/AdvReac Type Severity Reaction Status Date / Time No Known Allergies Allergy Verified 10/29/24 08:13 Family History Father Hypertension Heart disease CVA (cerebral vascular accident) Mother Myocardial infarction Sister Thyroid cancer Surgical History History of lumbar fusion Hx of gastrostomy Hx of arthroscopy of shoulder History of dermoid cyst excision History of exploratory laparotomy History of arthroscopy of right shoulder Hx of cholecystectomy Hx of hysterectomy History of lumbar spinal fusion Hx of cervical spine surgery Social History Smoking Status: Former smoker quit date: 02/12/79 pack-years: 10 Electronic Cigarette Use: not used second hand exposure: No alcohol intake: never substance use type: former substance user Date of last use: Quit 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
[2024-10-29 08:59] LABS: Hematocrit 38.0 % (37-47); Hemoglobin 12.2 g/dL (12.0-15.0); Mean Corp Hgb Conc 32.1 g/dL (32-36); Mean Corpuscular Volume 80.3 fL (81-99); Mean Platelet Vol. 10.8 fl (6.2-12.0); Platelet Count 191 K/mm3 (150-450); RBC Distribution Width CV 15.2 % (11.6-14.6); RBC Distribution Width SD 44.2 fl (35.1-43.9); Red Blood Count 4.73 M/mm3 (4.2-5.4); White Blood Count 4.0 K/mm3 (4.4-11.0)
[2024-10-29] MEDS: Midazolam 2 MG/2 ML Syringe IV (09:22)
[2024-10-29 09:23] LABS: Anion Gap 12 (5-15); BUN 18 mg/dL (4-19); BUN/Creat Ratio 26.8 RATIO (10-20); Calcium,Total 8.9 mg/dL (7.6-11.0); Carbon Dioxide 22.7 mmol/L (21.0-32.0); Chloride 109 mmol/L (98-108); Estimated Creatinine Clearance 64.02 ml/min (50-250); Glucose 104 mg/dL (70-99); Potassium 3.7 mmol/L (3.3-5.1)
--- NOTE | 2024-10-29 10:00 | PCM.HP.STD ---
HPI - General HPI Narrative REGIS HERNANDEZ, is a 63 F who presents for left shoulder arthroscopy, subacromial decompression, debridement, rotator cuff repair. no changes to h and p. left shoulder marked. rab, post op instructions, and narcotic counselling done. block given. ok to proceed. MR#: [id number] Acct: [id number] Name: REGIS HERNANDEZ Rep #: [id number] : 1960 Provider: Dr. Jeffrey Mallory MD Age/Sex: 63/F Location: [facility] [place] Status: Signed Intake Vital Signs 05/06/2509:48 09/25/2506:57 Height 5 ft 2 in 5 ft 2 in Weight: 150 lb BMI 27.4 Intake Visit Reasons: LEFT SHOULDER Chief Complaint: Left Shoulder MRI review Accompanied by: Is patient in pain?: Yes Pain scale (1-10): 8 Allergies No Known Allergies Allergy (Verified 09/25/24 08:03) Medications ?Medication ?Instructions ?Recorded ?Confirmed ?Type buspirone 30 mg tablet 30 mg PO BID DEPRESSION/ANXIETY 12/26/21 09/25/24 History pantoprazole 20 mg tablet,delayed 20 mg PO DAILY GERD 12/26/21 09/25/24 History release pramipexole 0.5 mg tablet 0.5 mg PO QHS RLS 03/22/22 09/25/24 History cetirizine 10 mg tablet 10 mg PO QDAY ALLERGIES 09/17/23 09/25/24 History cholecalciferol (vitamin D3) 50 50 mcg PO QDAY SUPPLEMENT 09/17/23 09/25/24 History mcg (2,000 unit) capsule ferrous sulfate 325 mg (65 mg 325 mg PO QDAY SUPPLEMENT 09/17/23 08/04/24 History iron) tablet (FeroSul) quetiapine 50 mg tablet 50 mg PO QHS ANXIETY 09/17/23 09/25/24 History ropinirole 1 mg tablet 1 - 2 mg PO QHS RLS 09/17/23 09/25/24 History pen needle, diabetic 32 gauge x #100 ea 10/12/23 09/25/24 Rx 5/32 (BD Ultra-Fine Wendi Pen Needle) acetaminophen 500 mg tablet 500 mg PO Q6H #30 tabs 12/27/24 08/14/25 Rx meloxicam 15 mg tablet 15 mg PO DAILY #30 tabs 02/08/24 09/25/24 Rx pregabalin 75 mg capsule 75 mg PO TID #30 caps 02/22/24 09/25/24 Rx pregabalin 75 mg capsule (Lyrica) 75 mg PO QDAY 05/06/24 09/25/24 History abaloparatide (Tymlos) 80 mcg (0.04 mL) subcut DAILY BONE 09/12/24 09/25/24 Rx HEALTH #4.68 mL Have you fallen in the past year?: No PFSH Medical History Left rotator cuff tear Post-menopausal Alcohol use History of hiatal hernia Leg cramps Arthrosis of left acromioclavicular joint Tendonitis of left rotator cuff Closed left clavicular fracture Left shoulder pain Wears hearing aid Wears glasses Complete edentulism, class III Depression Anxiety Arthritis DVT (deep venous thrombosis) Easy bruising Restless legs Injury of back Migraine headache Injury of head and neck TIA (transient ischemic attack) Syncope History of ulceration Gastric reflux Former smoker Shortness of breath on exertion History of pain when walking Cardiology follow-up encounter History of echocardiogram History of stress test Ganglion of flexor tendon sheath of right little finger Ganglion, tendon sheath History of CVA (cerebrovascular accident) Surgical History Hx of gastrostomy Hx of arthroscopy of shoulder History of dermoid cyst excision History of exploratory laparotomy History of arthroscopy of right shoulder Hx of cholecystectomy Hx of hysterectomy History of lumbar spinal fusion Hx of cervical spine surgery Family History Father Hypertension Heart disease CVA (cerebral vascular accident) Mother Myocardial infarction Sister Thyroid cancer Social History Smoking Status: Former smoker quit date: 02/12/79 pack-years: 10 Electronic Cigarette Use: not used second hand exposure: No alcohol intake: never substance use type: former substance user Date of last use: Quit 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 Jeffrey Mallory MD 09/25/24 0757. Part of today?s visit was documented by [ ], acting as scribe. REGIS HERNANDEZ is a 63 year old F here today for FU L shoulder MRI. Ortho Exam General General: Yes no acute distress Neurologic: Yes alert and Yes oriented x3 Psychologic: Yes reasonable and appropriate Supplemental Info [facility] Imaging Services [address] [place], [place] [id number] Upper Ext Joint Only(Routine) MR#: [id number] Acct: [id number] Name: REGIS HERNANDEZ Rep #: [id number] : 1960 F 63 From: Leonidas Gan MD PCP: SHIELA Orellana Status: REG CLI Study: Upper Ext Joint Only(Routine) Date of Exam: 09/12/24 Exam# [id number] Ordering Dr: Jeffrey Mallory MD PROCEDURE: UPPER EXT JOINT ONLY(ROUTINE) 09/12/2024 REASON FOR EXAM: PAIN, EVAL FOR RTC TEAR TECHNIQUE: MRI of the left shoulder without contrast. Multiplanar and multisequence images were obtained without IV contrast administration. COMPARISON: COMPARISON: Left shoulder MRI 01/18/2023. FINDINGS: Bone and bone Marrow: [id number] left acromioclavicular joint degenerative changes are seen. Minimal left glenohumeral joint degenerative changes are noted. No acute osseous signal changes are seen Effusion: No joint effusion is seen. Moderate supraspinatus tendinosis is seen, with mild infraspinatus tendinosis noted. No tendon retraction is seen. Soft Tissues: No abnormal muscle signal is seen. No free or loculated fluid collection is noted. Ligaments and Tendons: The long head of the biceps tendon appears intact. No glenoid labral tear is identified, on this noncontrasted examination.. MRI/Upper Ext Joint Only(Routine) IMPRESSION: 1. Degenerative changes as described. 2. Moderate supraspinatus and mild infraspinatus tendinosis. Reading Location: [place] [address] I independently reviewed the imaging. Concur with radiologist report. likely high grade near full thickness tear partial width tear at leading edge SS tendon. Coding Level of Care Code Off vis,est,level 4 Diagnoses Left rotator cuff tear M75.102 Tendonitis of left rotator cuff M75.82 Left shoulder pain M25.512 Assessment and Plan Assessment and Plan (1) Left rotator cuff tear: Status: Acute Plan: 63-year-old female with ongoing left shoulder pain despite to cortisone injections and a prior surgery 2 years ago which was a subacromial decompression distal clavicle excision and debridement of a partial-thickness supraspinatus tear. Although the most recent MRI does not show according to the radiologist the tear there is some insertional fraying and Dr. Plata's note does state that there was a partial-thickness tear 30%, and the MRI this year to my own interpretation consistent high high grade partial tear SS tendon. This still could be bothering the patient and may be worthwhile to consider arthroscopic rotator cuff repair given the ongoing pain discomfort difficulties with lifting despite cortisone injections. Surgery in the form of a left shoulder arthroscopy, subacromial decompression, debridement, rotator cuff repair. Patient understands wished to go ahead with surgery and signed the consent form for that. Patient has history of anxiety depression and CVA may increase the risks of surgery. Pros and cons risks and benefits were discussed with the patient including but not limited to infection, pain, stiffness, bleeding, damage to surrounding structures, neurovascular injury, recurrence or retear, failure or wear of hardware or fixation, instability, fracture, deep vein thrombosis and pulmonary embolism, anesthetic risks, , patient dissatisfaction, need for further surgery and other risks. Patient understood and wished to proceed with surgery, and signed the informed consent documentation. (2) Tendonitis of left rotator cuff: Status: Acute (3) Left shoulder pain: Status: Acute Clinical Quality Measures Falls Risk Screening/Assistive Devices Have you fallen in the past year?: No [facility] Medical History Low iron Back pain Left rotator cuff tear Post-menopausal Alcohol use History of hiatal hernia Leg cramps Arthrosis of left acromioclavicular joint Tendonitis of left rotator cuff Closed left clavicular fracture Left shoulder pain Wears hearing aid Wears glasses Complete edentulism, class III Depression Anxiety Arthritis DVT (deep venous thrombosis) Restless legs Injury of back Migraine headache Injury of head and neck TIA (transient ischemic attack) Syncope History of ulceration Gastric reflux Former smoker Shortness of breath on exertion History of pain when walking Cardiology follow-up encounter History of echocardiogram History of stress test Ganglion of flexor tendon sheath of right little finger Ganglion, tendon sheath History of CVA (cerebrovascular accident) Home Medications ?Medication ?Instructions ?Recorded ?Last Taken ?Type buspirone 30 mg tablet 30 mg PO BID DEPRESSION/ANXIETY 12/26/21 10/29/24 History pantoprazole 20 mg tablet,delayed 20 mg PO DAILY GERD 12/26/21 10/28/24 History release pramipexole 0.5 mg tablet 0.5 mg PO QHS RLS 03/22/22 10/28/24 History cetirizine 10 mg tablet 10 mg PO QDAY ALLERGIES 09/17/23 10/28/24 History cholecalciferol (vitamin D3) 50 50 mcg PO QDAY SUPPLEMENT 09/17/23 10/28/24 History mcg (2,000 unit) capsule ferrous sulfate 325 mg (65 mg 325 mg PO QDAY SUPPLEMENT 09/17/23 10/28/24 History iron) tablet (FeroSul) ropinirole 1 mg tablet 1 - 2 mg PO QHS RLS 09/17/23 10/28/24 History pen needle, diabetic 32 gauge x #100 ea 10/12/23 Unknown Rx (BD Ultra-Fine Wendi Pen Needle) meloxicam 15 mg tablet 15 mg PO DAILY #30 tabs 02/08/24 10/28/24 Rx abaloparatide (Tymlos) 80 mcg (0.04 mL) subcut DAILY BONE 09/12/24 10/28/24 Rx HEALTH #4.68 mL pregabalin 75 mg capsule (Lyrica) 75 mg PO TID 10/20/24 10/29/24 History quetiapine 50 mg tablet 50 mg PO BID 10/20/24 10/28/24 History Allergy/AdvReac Type Severity Reaction Status Date / Time No Known Allergies Allergy Verified 10/29/24 08:13 Family History Father Hypertension Heart disease CVA (cerebral vascular accident) Mother Myocardial infarction Sister Thyroid cancer Surgical History History of lumbar fusion Hx of gastrostomy Hx of arthroscopy of shoulder History of dermoid cyst excision History of exploratory laparotomy History of arthroscopy of right shoulder Hx of cholecystectomy Hx of hysterectomy History of lumbar spinal fusion Hx of cervical spine surgery Social History Smoking Status: Former smoker quit date: 02/12/79 pack-years: 10 Electronic Cigarette Use: not used second hand exposure: No alcohol intake: never substance use type: former substance user Date of last use: Quit 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, Used 4 Vital Signs Vital Signs Vital Signs: 10/29/24 08:26 10/29/24 08:26 10/29/24 08:53 Temperature 97.7 F L 97.7 F L Temperature Source Temporal Pulse Rate 76 76 Respiratory Rate 18 18 Respiratory Pattern Normal Blood Pressure 139/84 H 139/84 H Blood Pressure Mean 102 Blood Pressure Source Monitor Blood Pressure Position Semi-Fowlers Blood Pressure Location Left Arm Pulse Ox 97 97 Oxygen Delivery Method Room Air Room Air Weight Weight: 145 lb 8.081 oz Body Mass Index (BMI) 25.7 Results Lab / Micro Data 10/29/24 08:45 10/29/24 08:45 Labs: Laboratory Results - last 24 hr 10/29/24 08:45: WBC 4.0 L, RBC 4.73, Hgb 12.2, Hct 38.0, MCV 80.3 L, MCH 25.8 L, MCHC 32.1, RDW Std Deviation 44.2 H, RDW Coeff of Haley 15.2 H, Plt Count 191, MPV 10.8, Sodium 143, Potassium 3.7, Chloride 109 H, Carbon Dioxide 22.7, Anion Gap 12, BUN 18, Creatinine 0.68 L, Estim Creat Clear Calc 64.02, Est GFR (MDRD) Non-Af 97, BUN/Creatinine Ratio 26.8 H, Glucose 104 H, Calcium 8.9
[2024-10-29] MEDS: Cefazolin 1 GM/5 ML Vial 2 GM IV (10:11)
[2024-10-29] MEDS: Lidocaine 1% (5 ml sdv) 5 ML Vial 3 ML IV (10:17)
[2024-10-29] MEDS: Epinephrine (1 mg/ml) 1 MG/ML VIAL (10:47)
--- NOTE | 2024-10-29 11:17 | DCINST_ITS ---
Discharge Instructions Diet Discharge Diet: No restrictions Activity Lifting Restrictions: no lifting over 1 pound, ok for pendulums 4x/day, hand wrist and elbow ROM Additional Activity Instructions:: ok to remove sling at rest. Dressing / Incision Call your doctor if your incision/area has: Continuous Slow Oozing, Sudden Increased Bleeding, Increased Pain/ Swelling, Increased Redness, Foul Smelling D ischarge and Swelling at the incision site Call your doctor if you observe: Fever of 101 or Higher, Coldness, Increased Pain and Numbness or Tingling Change Dressing in: leave in place till F/U Cleanse incision/area with: Do not get Incision Wet Follow Up Care Please Follow Up With: Jeffrey Mallory MD When: within 2 weeks Test Results: Test results from this visit will be discussed in further detail at your follow- up appointment, if applicable. Discharge Plan Admission Attending Provider: Jeffrey Mallory Primary Care Provider: Wilber Georges Instructions Patient Instructions: Rotator Cuff Tear Print Language: Cameroonian Discharge Orders/Prescriptions Prescriptions: New oxycodone-acetaminophen [Percocet] 5-325 mg tablet 1 tab PO Q6H MDD 6 PRN (Reason: pain) 5 Days Qty: 30 0RF No Action buspirone 30 mg tablet 30 mg PO BID pantoprazole 20 mg tablet,delayed release (DR/EC) 20 mg PO DAILY ropinirole 1 mg tablet 1 - 2 mg PO QHS Patient Comments: [NO ORIGINAL SIG] cholecalciferol (vitamin D3) 50 mcg (2,000 unit) capsule 50 mcg PO QDAY Patient Comments: [NO ORIGINAL SIG] ferrous sulfate [FeroSul] 325 mg (65 mg iron) tablet 325 mg PO QDAY Patient Comments: [NO ORIGINAL SIG] cetirizine 10 mg tablet 10 mg PO QDAY Patient Comments: [NO ORIGINAL SIG] pregabalin [Lyrica] 75 mg capsule 75 mg PO TID quetiapine 50 mg tablet 50 mg PO BID pramipexole 0.5 mg Tablet 0.5 mg PO QHS meloxicam 15 mg Tablet 15 mg PO DAILY Qty: 30 0RF (DME) pen needle, diabetic [BD Ultra-Fine Wendi Pen Needle] 32 gauge x 5/32 needle See Rx Instructions .ROUTE .MEDSUPPLY Qty: 100 3RF Rx Instructions: daily Tymlos 80 mcg (3,120 mcg/1.56 mL) pen injector 80 mcg subcut DAILY Qty: 4.68 3RF Rx Instructions: inject into abdomen; do not inject within 2 inches of belly button/navel; rotate sites Referrals / Follow Up: Jeffrey Mallory MD [Med Staff - Active Staff, Orthopedics] Shaina Tom NP-C [Med Staff - Adv Practice Prof, Internal Medicine] Disposition Disposition (needs filled in before D/C Order can be placed): Home, Self Care
--- NOTE | 2024-10-29 11:21 | PCM.OPRPT ---
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[employer] Supervisor: geetha Tasks completed by first aid director: Retracting Additional mechanic's assistant?: No Type of Anesthesia: Block,Regional and General RN Documented Start/Stop Times: Operation Date: 10/29/24 10:00 Case Time Into Pre-Op 10/29/24 08:05 Anesthesia Start 10/29/24 10:11 Into Room 10/29/24 10:11 Procedure Start 10/29/24 10:37 Procedure Start Time: 10:37 Procedure Stop Time: 11:13 Select all DRAINS/GRAFTS/IMPLANTS that apply: Implanted device Implanted device details: arthrex 4.75mm swivelock bio composite anchor Estimated Blood Loss: 25 Specimen collected: No Description of surgery: Patient brought to the operating room theater. Placed supine on the table. General anesthesia induced. 2 g IV Ancef administered prior to the start of the case. Patient transferred left side up lateral decubitus beanbag positioner. Axillary roll used. SCDs on the legs. All bony prominences padded. Upper extremity prepped and draped in the usual sterile fashion with chlorhexidine-based prep solution allowing over 3 minutes drying time prior to draping. 5 pounds of inline traction with the arm in 45 degrees of abduction was utilized. Preoperative timeout performed to confirm the site patient and the surgery. Began by inserting the arthroscope into the intra-articular portion of the shoulder through a standard posterior arthroscopy portal. Used inside out spinal needle localization to perform an anterior portal through the rotator interval. Did a full diagnostic arthroscopy. Cartilage on the glenoid and humeral head was normal, aside from mild grade 1 changes central portion of glenoid, which I debrided. I probed the biceps the root was stable. The biceps long head appeared normal no subluxation. The glenoid labrum had fraying degenerative, at 3 and 6 and 10 oclock. Again, debrided this. Subscapularis was normal. The infraspinatus was normal. No loose bodies. There is a near full-thickness anterior leading edge tear of the supraspinatus tendon. I marked this with a spinal needle from inside the joint. I then removed the arthroscope and then inserted the arthroscope into the subacromial space. I did a lateral based portal at the location of the spinal needle. I did a complete bursectomy for a mild amount of bursitis. Identified the anterior leading edge of the acromion very slight downsloping I flatten this using a high-speed christa instrument to flat margins for about 2 mm, being cautious given the prior decompression, which had good space. Identified the tear site at the spinal needle localized position. Identified the tear it was about 1 cm from anterior to posterior. It was a near full-thickness high-grade partial-thickness tear. I completed the tear using a 11 blade and then just gently cleaned up the lateral fibers using a shaving instrument. The tear was mobile. I used the Arthrex power pick through the anterior portal to created multiple trephination's at the greater tuberosity footprint site. Placed a 7x7mm canula. I then used Arthrex fiber tape in an inverted horizontal mattress fashion medial to the tear site. This achieved a good purchase in the tendon with a mobile tendon again. I used a fiberlink suture medial to this as well for luggage tag configerature, creating a rip stop / lemuel-miguel type stitch. I then inserted this into a Arthrex 4.75 mm bio composite swivel lock anchor just off the lateral tuberosity. This achieved good purchase into the bone suture was cut short. I then used the additional stay suture with the knotless mechanism just posterior to the repair for additional fixation. Again the tear was very well repaired and compressed down to the tuberosity at that point. Sutures cut short arthroscopy pictures taken and saved onto the system. Arthroscope withdrawn wounds thoroughly irrigated. Portals closed with 3-0 Monocryl suture. Skin cleaned with wet dry dressing followed application of Steri-Strips Adaptic 4 x 4 gauze ABD dressing cloth tape with a abduction pillow sling for the upper extremity. Patient woken up from the general anesthetic transferred off the operating table and taken to postanesthetic care unit in stable condition. All sponge needle instrument counts were correct no complications plan for the patient discharge home according to day surgery criteria pendulum exercises and follow-up in the office within 2 weeks time. CPT 75688, 80840 Surgical Findings: as above Complications Complications: No Admit VTE Documentation VTE Present on Admission: No VTE Mechan Device Prophylaxis: SCD's VTE Pharm Prophylaxis ordered?: No Reason prophylaxis not ordered: Treatment Not Indicated
--- NOTE | 2024-10-29 11:41 | PCM.POST.ANE ---
Anesthesia: Postop Eval I Current Vital Signs Temperature: 97 F Pulse Rate: 78 Blood Pressure: 131/76 Respiratory Rate: 18 Pulse Ox: 95 Assessment Airway patent: Yes Spontaneous unlabored respirations: Yes nausea: No Vomiting: No Anesthesia Complication: No Fluid Hydration Crystalloid volume administer (ml): 700 Total IV fluid infused: 700 Progress Note Anesthesia document: Postop Eval 1 completed: Yes
[2024-10-29] MEDS: HYDROcodone Bitartrate/Apap 5/325 Tablet PO (12:57)
--- NOTE | 2024-10-29 13:28 | POSTOPAN2_ITS ---
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 Spontaneous unlabored Yes 10/29/24 11:41 VOCATIONAL EDUCATION PROFESSIONAL.TNES respirations Mental status nausea No 10/29/24 11:41 VOCATIONAL EDUCATION PROFESSIONAL.TNES Vomiting No 10/29/24 11:41 VOCATIONAL EDUCATION [email or web address].TNES Anesthesia Postop Eval I: Fluid Summary Crystalloid volume administer 700 10/29/24 11:41 VOCATIONAL EDUCATION PROFESSIONAL.TNES (ml) Colloids volume administered ( ml) Blood Product volume administered (ml) Total IV fluid infused 700 10/29/24 11:41 VOCATIONAL EDUCATION PROFESSIONAL.TNES Anesthesia Postop Eval I: Summary Notes Anesthesia Complication No 10/29/24 11:41 VOCATIONAL EDUCATION [email or web address].TNES Anesthesia Complication Comment: Post-operative progress note Anesthesia: Postop Eval II Evaluation Mental status: Awake and Calm Pain Level: 1 nausea: No Vomiting: No Complications Anesthesia Complication: No
--- NOTE | 2024-10-29 13:28 | PCM.POSTANE2 ---
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 Spontaneous unlabored Yes 10/29/24 11:41 RIVER DRIVER.[email or web address] respirations Mental status nausea No 10/29/24 11:41 RIVER DRIVER.[email or web address] Vomiting No 10/29/24 11:41 RIVER [email or web address].[email or web address] Anesthesia Postop Eval I: Fluid Summary Crystalloid volume administer 700 10/29/24 11:41 RIVER [email or web address].[email or web address] (ml) Colloids volume administered ( ml) Blood Product volume administered (ml) Total IV fluid infused 700 10/29/24 11:41 RIVER [email or web address].[email or web address] Anesthesia Postop Eval I: Summary Notes Anesthesia Complication No 10/29/24 11:41 RIVER [email or web address] Anesthesia Complication Comment: Post-operative progress note Anesthesia: Postop Eval II Evaluation Mental status: Awake and Calm Pain Level: 1 nausea: No Vomiting: No Complications Anesthesia Complication: No
== END 2024-10-29 13:19 | disposition home or self-care (01) ==
LOC: SDC 07:55 → AC 07:56
PROVIDERS: Anesthesiology; PCP Internal Medicine Infectious Disease; Referring Provider Orthopaedic Surgery Sports Medicine; Visit Provider Orthopaedic Surgery Sports Medicine
PROC: (CPT 29805; principal; 2024-10-29 09:40)
DX: M75.102 Unspecified rotator cuff tear or rupture of left shoulder, not specified as traumatic (principal); K21.9 Gastro-esophageal reflux disease without esophagitis; Z79.1 Long term (current) use of non-steroidal anti-inflammatories (NSAID); Z79.899 Other long term (current) drug therapy; Z87.891 Personal history of nicotine dependence; M75.82 Other shoulder lesions, left shoulder; Z86.718 Personal history of other venous thrombosis and embolism
CPT/HCPCS: 29827; 29826; 64415; 80048; 85027; 93005; C1713; A4216; J2405